=== PATIENT | male | born 1940 | race Caucasian/White ===

== ENCOUNTER 2017-03-10 02:20 | Inpatient (IN) | payer BC ==
[~2017-03-10] VITALS: Ht 175.3 cm; Wt 83.1 kg
[2017-03-10] MEDS ORDERED: IV NS 0.9% 500 ML BAG IV ONE (02:30)
[2017-03-10] MEDS ORDERED: ONDANSETRON HCL/PF 4 MG/2 ML VIAL IVP ONE (02:30)
--- NOTE | 2017-03-10 02:46 | NUR ---
BB RA; NAUSEA, VOMIT, DIARRHEA. PER EMS, THE ROOM WAS SPINNING, PT FELL HIT RIGHT FOREHEAD. PT AOX4 RR EVEN AND UNLABORED. NO SOB NOTED. NAD NOTED. NO NVD AT THIS TIME. PT GOWNED AND PLACED ON MOINTOR WAITING FOR MD CROWDER.
[2017-03-10] MEDS ORDERED: IV NS 0.9% 500 ML IV ONE (02:47)
[2017-03-10] MEDS ORDERED: IV SET PRIMARY PUMP SET 1 EA INFUS.SET MC ONE ×2 (02:47→06:18)
[2017-03-10] MEDS ORDERED: ONDANSETRON HCL/PF 4 MG/2 ML VIAL ONE (02:47)
--- NOTE | 2017-03-10 02:50 | NUR ---
XRAY AT BEDSIDE
[2017-03-10 03:05] LABS: BASOPHILS # (AUTO) 0.1 /CMM (0.0-0.2); BASOPHILS % (AUTO) 0.5 % (0.0-2.0); EOSINOPHILS # (AUTO) 0.3 /CMM (0.0-0.7); EOSINOPHILS % (AUTO) 2.5 % (0.0-6.0); HEMATOCRIT 47 % (39-51); LYMPHOCYTES # (AUTO) 2.4 /CMM (0.8-4.8); LYMPHOCYTES % (AUTO) 21.5 % (20.0-44.0); MEAN CORPUSCULAR HEMOGLOBIN 29 PG (26.0-33.0); MEAN CORPUSCULAR HGB CONC 34 g/dl (31.0-36.0); MEAN CORPUSCULAR VOLUME 87 fL (80-96); MONOCYTES # (AUTO) 0.7 /CMM (0.1-1.30); MONOCYTES % (AUTO) 6.2 % (2.0-12.0); NEUTROPHILS # (AUTO) 7.7 /CMM (1.8-8.9); NEUTROPHILS % (AUTO) 69.3 % (43.0-81.0); PLATELET COUNT (AUTO) 167 /CMM (150-450); RDW COEFFICIENT OF VARIATION 14.2 (11.5-15.0); RED BLOOD CELL COUNT(AUTO) 5.45 MIL/uL (4.5-6.0); WHITE BLOOD COUNT (AUTO) 11.1 K/uL (4.3-11.0)
[2017-03-10 03:16] LABS: CALCIUM, SERUM 8.9 mg/dL (8.5-10.1); CARBON DIOXIDE 27 mmol/L (21-32); CHLORIDE 106 mmol/L (98-107); CREATININE 1.3 mg/dL (0.6-1.3); GLUCOSE 133 mg/dL (74-106); POTASSIUM 3.8 mmol/L (3.5-5.1); SODIUM SERUM 142 mmol/L (136-145); UREA NITROGEN, BLOOD 15 mg/dL (7-18)
[2017-03-10 03:21] LABS: INR 0.96 (0.87-1.13); PROTHROMBIN TIME 10.2 SECS (9.5-12.7)
[2017-03-10 03:22] LABS: ALANINE AMINOTRANSFERASE 23 U/L (12-78); ALBUMIN 3.8 g/dL (3.4-5.0); ALKALINE PHOSPHATASE 73 U/L (46-116); ASPARTATE AMINOTRANSFERASE 16 U/L (15-37); BILIRUBIN,DIRECT 0.1 mg/dL (0.0-0.2); BILIRUBIN,TOTAL 0.7 mg/dL (0.2-1.0); TOTAL PROTEIN, SERUM 6.9 g/dL (6.4-8.2)
[2017-03-10 03:24] LABS: TROPONIN I < 0.017 ng/mL (0.00-0.056)
[2017-03-10] MEDS ORDERED: BENA40TA2 PO (03:58)
[2017-03-10] MEDS ORDERED: HYDR-4077 PO (03:58)
[2017-03-10] MEDS ORDERED: ROSU10TA PO (03:58)
[2017-03-10] MEDS ORDERED: ASPI-1094 PO (03:58)
[2017-03-10] MEDS ORDERED: METO50TA3 PO (03:58)
--- NOTE | 2017-03-10 04:25 | NUR ---
DR. CHRIS SPEAKING TO DR. KULKARNI REGARDING ADMISSION
--- NOTE | 2017-03-10 04:32 | NUR ---
REPORT GIVEN TO AUGUST ROCA FOR C.O.C
[2017-03-10] MEDS ORDERED: IV NS 0.9% 1,000 ML IV PRN (04:39)
--- NOTE | 2017-03-10 04:40 | NUR ---
TELE/RN NOTES RECEIVED PT. FROM ER VIA EMORY. PT. IS AWAKE, ALERT AND ORIENTED X4. BREATHING EVEN AND UNLABORED. NO SOB, RESPIRATORY DISTRESS OR COMPLAINTS OF PAIN NOTED AT THIS TIME. NO COMPLAINTS OF LIGHTHEADED OR DIZZINESS NOTED AT THIS TIME. ORIENTED PT. TO ROOM. PLACED EXTERNAL CORK INSULATION INSTALLER ON PT. CURRENT RHYTHM = SINUS RHYTHM HR 63. PT. WITH LEFT AC 18 GAUGE IV SALINE LOCK PRESENT, PATENT AND INTACT. BED IN LOWEST POSITION, CALL LIGHT WITHIN REACH, WILL CONTINUE TO MONITOR.
[2017-03-10 04:56] VITALS: BP 210/81
--- NOTE | 2017-03-10 04:57 | NUR ---
PT TRASNFERED PER ACLS PROTOCOL.
[2017-03-10 05:00] VITALS: BP 158/89
[2017-03-10] MEDS ORDERED: ONDANSETRON HCL/PF 4 MG/2 ML VIAL IVP PRN (05:00)
[2017-03-10] MEDS ORDERED: MAG HYDROX/AL HYDROX/SIMETH 30 ML UDC PO PRN (05:00)
[2017-03-10] MEDS ORDERED: HYDROCODONE/APAP 5/325MG 1 EACH TABLET PO PRN (05:00)
[2017-03-10] MEDS ORDERED: Z GUARD REMEDY 2 OZ OINT TP PRN (05:00)
[2017-03-10] MEDS ORDERED: ACETAMINOPHEN 325 MG TABLET PO PRN (05:00)
[2017-03-10] MEDS ORDERED: MAGNESIUM HYDROXIDE 30 ML UDC PO PRN (05:00)
--- NOTE | 2017-03-10 06:00 | NUR ---
TELE/RN NOTES PT. TOOK HIS HOME BLOOD PRESSURE MEDICATIONS METOPROLOL, HYDRALAZINE AND BENAZAPRIL. HE STATED HE TAKES THEM EVERYDAY AT 0600 AND HE DOESN'T WANT TO MISS A DOSE OR TAKE IT LATE. ALL OF PT. MEDICATIONS DOCUMENTED AND PLACED IN A BAG FOR PHARMACY AND SIGNED BY PT. WILL CONTINUE TO MONITOR.
[2017-03-10] MEDS ORDERED: IV NS 0.9% 1,000 ML ONE (06:17)
--- NOTE | 2017-03-10 06:48 | NUR ---
TELE/RN NOTES PT. LYING IN BED RESTING. BREATHING EVEN AND UNLABORED ON ROOM AIR. NO SOB, RESPIRATORY DISTRESS OR COMPLAINTS OF PAIN NOTED AT THIS TIME. PT. WITH EXTERNAL EXTENSION WORK INSTRUCTOR PRESENT AND INTACT. CURRENT RHYTHM = SINUS RHYTHM HR 65. PT. WITH LEFT AC 18 GAUGE PERIPHERAL IV PRESENT, PATENT AND INTACT ADMINISTERING TO PT. NS @ 75 ML/HR. ALL PT. NEEDS MET. BED IN LOWEST POSITION, CALL LIGHT WITHIN REACH, WILL ENDORSE TO DAYSHIFT NURSE FOR CONTINUITY OF CARE.
[2017-03-10 07:02] VITALS: BP 158/89
--- NOTE | 2017-03-10 07:20 | NUR ---
RECEIVED PT. ALERT AND ORIENTED X4.NO COMPLAINTS.
[2017-03-10] MEDS ORDERED: PANTOPRAZOLE 40 MG TABLET.DR PO SCH (07:30)
[2017-03-10 08:00] VITALS: BP 158/89
[2017-03-10] MEDS ORDERED: ASPIRIN 81 MG TAB.CHEW PO SCH (09:00)
[2017-03-10] MEDS ORDERED: METOPROLOL TARTRATE 50 MG TABLET PO SCH (09:00)
[2017-03-10] MEDS ORDERED: ATORVASTATIN 10 MG TABLET PO SCH (09:00)
[2017-03-10 09:16] LABS: THYROID STIMULATING HORMONE 3.73 uIU/mL (0.358-3.74)
[2017-03-10] MEDS: hydrALAZINE HCL 50 MG TABLET PO SCH ×2 (10:11→13:23)
--- NOTE | 2017-03-10 10:30 | NUR ---
Alcon MOLINA DC BY PT.-STATES HE IS GOING HOME.
[2017-03-10 12:00] VITALS: BP 185/96
--- NOTE | 2017-03-10 14:20 | NUR ---
DR. CRUZ,DR. PINA IN TO SEE PT. ORDERS GIVEN.ECHO DONE,DR. PINA INFORMED THAT PT. WANTS TO BE DC,D,BUT SAYS NO-INFORMED HIM PT WILL SIGN OUT AMA.AMA PAPER SIGNED,GIVEN DC INSTRUCTION-ALSO INFORMED PT. HE IS TO HAVE DOPPLER STUDY OF LEGS AND PT. REFUSING.HEP LOCK REMOVED.DISCHARGE PHOTOS NOT DONE PT. HERE LESS THAN 24 HRS.TAKEN TO LOBBY VIA W/C ACCOMPANIED BY GROUP SOCIAL WORKER FOR TAXI PICK-UP.SLEEPING CAR SERVICE ATTENDANT WELL TUBE FITTER INFORMED PT. OF RISKS OF LEAVING WITHOUT MD WALDROP.PT. OK WITH THIS.
[2017-03-10 16:00] VITALS: BP 154/84
[2017-03-10] MEDS ORDERED: ZOLPIDEM TARTRATE 5 MG TABLET PO PRN (22:00)
[2017-03-11] MEDS ORDERED: BENAZEPRIL HCL 20 MG TABLET PO SCH (09:00)
== END 2017-03-10 16:30 | disposition left against medical advice (07) | DRG 74 ==
LOC: ER 02:22 → TELE 04:35
PROVIDERS: ADMIT Internal Medicine; ATTEND Internal Medicine
DX: G90.8 Other disorders of autonomic nervous system (principal); I10 Essential (primary) hypertension; E78.5 Hyperlipidemia, unspecified; Z86.73 Personal history of transient ischemic attack (TIA), and cerebral infarction without residual deficits; R19.7 Diarrhea, unspecified
CPT/HCPCS: 36415; 70450-TC; 71010-TC; 80048-TC; 80076-TC; 84439-TC; 84443-TC; 84484-TC; 85025-TC; 85730-TC; 87081-TC; 93307-TC; A4606; J2405; J7030; J7040; Z7610

== ENCOUNTER 2017-03-20 03:00 | Emergency (ER) | payer BC ==
[~2017-03-20] VITALS: Ht 172.7 cm; Wt 83.5 kg
[~2017-03-20 03:00] MED LIST: ASPI-1094 PO; BENA40TA2 PO; HYDR-4077 PO; METO50TA3 PO; ROSU10TA PO
--- NOTE | 2017-03-20 03:00 | NUR ---
PT BIB RA WITH A C/O HIGH BP. PT WENT TO ER BED #7 AND WAS PLACED ON THE MONITOR & CONTINUOUS PULSE OX. PT IS AA&O X4. RESP EVEN AND UNLABORED. NO C/O N/V AND NO DIAPHORESIS NOTED. NO C/O HEADACHE OR BLURRED VISION.
[2017-03-20] MEDS ORDERED: ONDANSETRON HCL/PF 4 MG/2 ML VIAL ONE (03:22)
[2017-03-20] MEDS ORDERED: hydrALAZINE HCL IV 20 MG VIAL ONE (03:22)
[2017-03-20 03:27] LABS: BASOPHILS % (AUTO) 0.5 % (0.0-2.0); EOSINOPHILS # (AUTO) 0.3 /CMM (0.0-0.7); EOSINOPHILS % (AUTO) 3.6 % (0.0-6.0); HEMATOCRIT 44 % (39-51); HEMOGLOBIN 14.9 g/dL (13.5-17.5); LYMPHOCYTES # (AUTO) 3.5 /CMM (0.8-4.8); LYMPHOCYTES % (AUTO) 47.1 % (20.0-44.0); MEAN CORPUSCULAR HEMOGLOBIN 29 PG (26.0-33.0); MEAN CORPUSCULAR HGB CONC 34 g/dl (31.0-36.0); MEAN CORPUSCULAR VOLUME 87 fL (80-96); MONOCYTES # (AUTO) 0.6 /CMM (0.1-1.30); MONOCYTES % (AUTO) 8.5 % (2.0-12.0); NEUTROPHILS % (AUTO) 40.3 % (43.0-81.0); PLATELET COUNT (AUTO) 191 /CMM (150-450); RED BLOOD CELL COUNT(AUTO) 5.09 MIL/uL (4.5-6.0); WHITE BLOOD COUNT (AUTO) 7.4 K/uL (4.3-11.0)
[2017-03-20] MEDS ORDERED: ONDANSETRON HCL/PF 4 MG/2 ML VIAL IV ONE (03:30)
[2017-03-20] MEDS ORDERED: hydrALAZINE HCL IV 20 MG VIAL IV ONE (03:30)
--- NOTE | 2017-03-20 03:38 | NUR ---
PT LEFT FOR CT VIA GURNEY.
[2017-03-20 03:45] LABS: ALANINE AMINOTRANSFERASE 19 U/L (12-78); ALBUMIN 3.6 g/dL (3.4-5.0); ALKALINE PHOSPHATASE 72 U/L (46-116); ASPARTATE AMINOTRANSFERASE 14 U/L (15-37); BILIRUBIN,DIRECT 0.1 mg/dL (0.0-0.2); BILIRUBIN,TOTAL 0.9 mg/dL (0.2-1.0); CALCIUM, SERUM 8.5 mg/dL (8.5-10.1); CARBON DIOXIDE 26 mmol/L (21-32); CHLORIDE 106 mmol/L (98-107); CREATININE 1.2 mg/dL (0.6-1.3); GLUCOSE 117 mg/dL (74-106); POTASSIUM 3.6 mmol/L (3.5-5.1); SODIUM SERUM 142 mmol/L (136-145); TOTAL PROTEIN, SERUM 6.6 g/dL (6.4-8.2); UREA NITROGEN, BLOOD 11 mg/dL (7-18)
[2017-03-20 03:48] LABS: TROPONIN I < 0.017 ng/mL (0.00-0.056)
--- NOTE | 2017-03-20 03:51 | NUR ---
PT RETURNED FROM CT.
--- NOTE | 2017-03-20 04:01 | NUR ---
PT AMBULATED TO THE BATHROOM WITH A STEADY GAIT. NO DIZZINESS NOTED.
--- NOTE | 2017-03-20 04:06 | NUR ---
PT AMBULATED BACK FROM THE BATHROOM. URINE SAMPLE OBTAINED. LAB CALLED FOR P/U.
--- NOTE | 2017-03-20 04:32 | NUR ---
PT APPEARS TO BE RESTING COMFORTABLY WITH NO S/S OF PAIN OR DISTRESS.
[2017-03-20 04:44] LABS: APPEARANCE,URINE CLEAR (CLEAR); BILIRUBIN,URINE NEGATIVE (NEGATIVE); BLOOD, URINE NEGATIVE Ery/uL (NEGATIVE); COLOR,URINE YELLOW (YELLOW); KETONES,URINE NEGATIVE (NEGATIVE); LEUKOCYTE ESTERASE ,URINE NEGATIVE (NEGATIVE); NITRITE, URINE NEGATIVE (NEGATIVE); PH,URINE 5.5 (5.0-8.0); PROTEIN,URINE NEGATIVE (NEGATIVE); UGLUCOSE NEGATIVE (NEGATIVE); UROBILINOGEN,URINE 0.2 EU/dL (0.2)
[2017-03-20] MEDS ORDERED: MECLIZINE HCL 25 MG TABLET ONE (04:45)
--- NOTE | 2017-03-20 04:59 | NUR ---
IV removed. Catheter intact and site benign. Pressure and 4x4 applied to site. No bleeding noted.Patient discharged to home in stable condition. Written and verbal after care instructions given. Patient verbalizes understanding of instruction. PT REC'D A COPY OF ALL LABS AND IMAGING FINDINGS. PT IS ALSO REC'ING A TAXI VOUCHER HOME. PT ARRIVED BY RA AND DOES NOT HAVE A WAY HOME. VSS.
[2017-03-20 05:00] VITALS: BP 140/73
[2017-03-20] MEDS ORDERED: MECLIZINE HCL 25 MG TABLET PO ONE (05:00)
[2017-03-23] MEDS ORDERED: BENA20TA2 PO (12:20)
[2017-03-23] MEDS ORDERED: DOXA1TAB17 PO (12:20)
== END 2017-03-20 05:01 | disposition home or self-care (01) ==
LOC: ER 03:01
DX: I10 Essential (primary) hypertension (principal); Z79.82 Long term (current) use of aspirin; Z86.73 Personal history of transient ischemic attack (TIA), and cerebral infarction without residual deficits; Z88.0 Allergy status to penicillin
CPT/HCPCS: 36415; 70450-TC; 71010-TC; 80048-TC; 80076-TC; 81000-TC; 84484-TC; 85025-TC; A4606; J0360; J2405; J8597; Z7610

== ENCOUNTER 2017-03-22 04:58 | Inpatient (IN) | payer BC ==
[~2017-03-22] VITALS: Ht 172.7 cm; Wt 81.7 kg
--- NOTE | 2017-03-22 05:04 | NUR ---
PT BIBRA39 FOR C/O FEELING LIGHTHEADED W/ DIZZINESS S/P ELEVATED SBP ABOVE 210, REPORT ONE OF HIS BP MEDICATIONS WAS RECENTLY D/C BY HIS PCP. AOX4, AFEBRILE W/ RESP EVEN & UNLABORED, DENIES ANY BLURRED VISION, NO SOB, NO CP, AFIB W/ NAD NOTED. PT IN GOWN, ON CONTINUOUS PULSE-OX W/ CARDIAC MONITORING. DR. CHRIS AT BEDSIDE FOR FURTHER EVAL. EKG STAT AT BEDSIDE.
--- NOTE | 2017-03-22 05:10 | NUR ---
GAYLA started, labs drawn & sent.
[2017-03-22] MEDS ORDERED: hydrALAZINE HCL IV 20 MG VIAL ONE (05:11)
--- NOTE | 2017-03-22 05:21 | NUR ---
pt medicated as ordered for elevated bp.
[2017-03-22] MEDS ORDERED: hydrALAZINE HCL IV 20 MG VIAL IV ONE (05:30)
[2017-03-22 05:35] LABS: BASOPHILS % (AUTO) 0.3 % (0.0-2.0); EOSINOPHILS # (AUTO) 0.4 /CMM (0.0-0.7); EOSINOPHILS % (AUTO) 4.6 % (0.0-6.0); HEMATOCRIT 44 % (39-51); LYMPHOCYTES # (AUTO) 4.5 /CMM (0.8-4.8); LYMPHOCYTES % (AUTO) 54.9 % (20.0-44.0); MEAN CORPUSCULAR HEMOGLOBIN 29 PG (26.0-33.0); MEAN CORPUSCULAR HGB CONC 34 g/dl (31.0-36.0); MEAN CORPUSCULAR VOLUME 87 fL (80-96); MONOCYTES # (AUTO) 0.7 /CMM (0.1-1.30); MONOCYTES % (AUTO) 8.6 % (2.0-12.0); NEUTROPHILS # (AUTO) 2.6 /CMM (1.8-8.9); NEUTROPHILS % (AUTO) 31.6 % (43.0-81.0); PLATELET COUNT (AUTO) 194 /CMM (150-450); RDW COEFFICIENT OF VARIATION 13.8 (11.5-15.0); WHITE BLOOD COUNT (AUTO) 8.2 K/uL (4.3-11.0)
[2017-03-22 05:45] LABS: CALCIUM, SERUM 8.5 mg/dL (8.5-10.1); CARBON DIOXIDE 27 mmol/L (21-32); CHLORIDE 107 mmol/L (98-107); CREATININE 1.1 mg/dL (0.6-1.3); GLUCOSE 116 mg/dL (74-106); POTASSIUM 3.7 mmol/L (3.5-5.1); SODIUM SERUM 142 mmol/L (136-145); UREA NITROGEN, BLOOD 16 mg/dL (7-18)
--- NOTE | 2017-03-22 05:47 | NUR ---
Dr. Jose at bedside for update on pt status.
[2017-03-22 05:48] LABS: ALANINE AMINOTRANSFERASE 21 U/L (12-78); ALBUMIN 3.7 g/dL (3.4-5.0); ALKALINE PHOSPHATASE 68 U/L (46-116); ASPARTATE AMINOTRANSFERASE 18 U/L (15-37); BILIRUBIN,TOTAL 0.9 mg/dL (0.2-1.0); TOTAL PROTEIN, SERUM 6.7 g/dL (6.4-8.2); TROPONIN I < 0.017 ng/mL (0.00-0.056)
--- NOTE | 2017-03-22 06:07 | NUR ---
pt resting comfortably in bed w/ nad noted. On continuous monitoring.
--- NOTE | 2017-03-22 06:10 | NUR ---
pt ambulatory w/ steady gait to restroom, nad noted.
--- NOTE | 2017-03-22 06:15 | NUR ---
pt BP elevated s/p ambulating to restroom. Pt took his own medication metoprolol 50mg for elevated bp. Dr. Romero aware, at bedside evaluating pt.
--- NOTE | 2017-03-22 07:10 | NUR ---
Report given to AUGUST Heredia for NADIYA.
--- NOTE | 2017-03-22 07:50 | NUR ---
report given to mario alberto zapata for continuity of care.
[2017-03-22 08:00] VITALS: BP 182/72
--- NOTE | 2017-03-22 08:00 | NUR ---
RN ADMITTING NOTES ADMITTED PATIENT FROM ER, REPORT RECEIVED FROM RNBLAS. ARRIVED IN WHEELCHAIR ACCOMPANIED BY SILK SCREEN OPERATORMARY JO, ADMITTED TO ROOM 106. AWAKE AND ALERT X3, ABLE TO FOLLOW SIMPLE COMMANDS AND ANSWER QUESTIONS, AMBULATORY. ON TELE SINUS RHYTHM, DENIES ANY CHEST PAIN OR DISCOMFORT. NO RESPIRATORY DISTRESS NOTED, BREATHING EVEN AND UNLABORED. O2 SAT 98% ON RA. SKIN INTACT. LEFT AC IV SITE PATENT AND CDI, GAUGE #18, FLUSHED WITH NS. SIDE RAILS UP, BED LOCKED AND IN LOWEST POSITION, CALL LIGHT WITHIN EASY REACH.
[2017-03-22] MEDS ORDERED: METO-302 PO (08:26)
--- NOTE | 2017-03-22 08:30 | NUR ---
RN NOTES: DR. MANCIA MADE AWARE OF PT'S ADMISSION AND BP 182/72.
[2017-03-22] MEDS ORDERED: ACETAMINOPHEN 325 MG TABLET PO PRN (11:00)
[2017-03-22] MEDS ORDERED: HYDROCODONE/APAP 5/325MG 1 EACH TABLET PO PRN (11:00)
[2017-03-22] MEDS ORDERED: Z GUARD REMEDY 2 OZ OINT TP PRN (11:00)
[2017-03-22] MEDS ORDERED: ONDANSETRON HCL/PF 4 MG/2 ML VIAL IVP PRN (11:00)
[2017-03-22] MEDS ORDERED: ZOLPIDEM TARTRATE 5 MG TABLET PO PRN (11:00)
[2017-03-22 12:00] VITALS: BP 173/81
--- NOTE | 2017-03-22 12:00 | NUR ---
RN NOTES: PT SEEN & EXAMINED BY DR. CRUZ W/ ORDERS NOTED & CARRIED OUT.
[2017-03-22] MEDS: BENAZEPRIL HCL 20 MG TABLET PO SCH (12:24)
[2017-03-22] MEDS: hydrALAZINE HCL 50 MG TABLET PO SCH ×2 (12:24→17:34)
[2017-03-22] MEDS ORDERED: DOXAZOSIN MESYLATE (1 MG) 1 MG TABLET PO SCH (12:30)
[2017-03-22] MEDS ORDERED: LACTULOSE 10 G/15 ML UDC (PYXIS) PO PRN (13:30)
--- NOTE | 2017-03-22 14:00 | NUR ---
RN NOTES: PT SEEN & EXAMINED BY DR. MANCIA. MADE AWARE THAT PT IS REQUESTING FOR LAXATIVES W/ ORDERS TO GIVE LACTULOSE 20 GM BID PRN.
[2017-03-22] MEDS ORDERED: BISACODYL SUPP (10 MG) 10 MG/SUPP.RECT SUPP.RECT RC PRN (14:30)
[2017-03-22] MEDS ORDERED: MAGNESIUM CITRATE 296 ML BOTTLE PO ONE (14:30)
[2017-03-22] MEDS: METOPROLOL SUCCINATE 25 MG TAB.SR.24H PO SCH (17:35)
--- NOTE | 2017-03-22 18:57 | NUR ---
PATIENT AWAKE AND SITTING IN CHAIR. NO RESPIRATORY DISTRESS NOTED, DENIES ANY PAIN OR DISCOMFORT @ THIS TIME. BP IMPROVED. LEFT AC REMAINS CDI. WILL ENDORSE CONTINUITY OF CARE TO PM NURSE.
[2017-03-22 20:00] VITALS: BP_SYST 132; BP_SYST 137; BP_SYST 173; BP_DIAS 57; BP_DIAS 68; BP_DIAS 81
--- NOTE | 2017-03-22 20:50 | NUR ---
STUDENT TEACHER. INITIAL ASSESSMENT. RECEIVED THE PT REST ON THE BED. PT AWAKE, ALERT, FOLLOW COMMANDS. MASTER DYER SHOWING NSR. PT ON ROOM AIR. SAT 95%. MASTER DYER SHOWING NSR. IV RT FA 18G. SALINE LOCK. AFEBRILE. PT IS INDEPENDENT. AFEBRILE. WILL CONTINUE TO MONITOR VITALS.
[2017-03-22] MEDS ORDERED: ATORVASTATIN 10 MG TABLET PO SCH (22:00)
--- NOTE | 2017-03-22 22:42 | NUR ---
RN NOTE. PT STATE LIPITOR ALLERGY. PAGED MOUNTER SAXOPHONES MD KAREN GUTHRIE AWARE. PT TAKING AT HOME TAB CRESTOR 10MGAT BED TIME. UNABLE TO PUT TAB CRESTOR IN EMR.
[2017-03-23] VITALS: BP 156/71
[2017-03-23 04:00] VITALS: BP_SYST 155; BP_SYST 157; BP_DIAS 75
--- NOTE | 2017-03-23 04:25 | NUR ---
RN NOTES, AM CARE, ORAL CARE BED BATH GIVEN, ZLINEN CHANGED, REMAINING SAME PT ON ROOM AIR, SAT 98%. CARDIAC MINITOR SHOWIIV LT HAND, SALINE LOCH. WILL CONTINUE TO MONITOR VITALS.
[2017-03-23 06:12] LABS: ALANINE AMINOTRANSFERASE 19 U/L (12-78); ALBUMIN 3.6 g/dL (3.4-5.0); ALKALINE PHOSPHATASE 60 U/L (46-116); ASPARTATE AMINOTRANSFERASE 14 U/L (15-37); CALCIUM, SERUM 8.4 mg/dL (8.5-10.1); CARBON DIOXIDE 27 mmol/L (21-32); CHLORIDE 105 mmol/L (98-107); GLUCOSE 119 mg/dL (74-106); MAGNESIUM 2.6 mg/dL (1.8-2.4); PHOSPHORUS 2.4 mg/dL (2.5-4.9); POTASSIUM 3.8 mmol/L (3.5-5.1); SODIUM SERUM 139 mmol/L (136-145); TOTAL PROTEIN, SERUM 6.8 g/dL (6.4-8.2); UREA NITROGEN, BLOOD 10 mg/dL (7-18)
[2017-03-23 06:21] LABS: CHOLESTEROL 112 mg/dL (<200); HDL CHOLESTEROL 32 mg/dL (40-60); LDL 52 mg/dL (0-99); THYROID STIMULATING HORMONE 1.329 uIU/mL (0.358-3.74); TRIGLYCERIDES 142 mg/dL (30-150)
[2017-03-23 06:25] LABS: BASOPHILS % (AUTO) 0.4 % (0.0-2.0); EOSINOPHILS # (AUTO) 0.2 /CMM (0.0-0.7); EOSINOPHILS % (AUTO) 3.6 % (0.0-6.0); HEMATOCRIT 44 % (39-51); HEMOGLOBIN 14.9 g/dL (13.5-17.5); LYMPHOCYTES # (AUTO) 1.9 /CMM (0.8-4.8); LYMPHOCYTES % (AUTO) 27.4 % (20.0-44.0); MEAN CORPUSCULAR HEMOGLOBIN 30 PG (26.0-33.0); MEAN CORPUSCULAR HGB CONC 34 g/dl (31.0-36.0); MEAN CORPUSCULAR VOLUME 88 fL (80-96); MONOCYTES # (AUTO) 0.6 /CMM (0.1-1.30); MONOCYTES % (AUTO) 8.2 % (2.0-12.0); NEUTROPHILS # (AUTO) 4.1 /CMM (1.8-8.9); NEUTROPHILS % (AUTO) 60.4 % (43.0-81.0); PLATELET COUNT (AUTO) 231 /CMM (150-450); RDW COEFFICIENT OF VARIATION 14.1 (11.5-15.0); RED BLOOD CELL COUNT(AUTO) 4.99 MIL/uL (4.5-6.0); WHITE BLOOD COUNT (AUTO) 6.8 K/uL (4.3-11.0)
--- NOTE | 2017-03-23 07:10 | NUR ---
RN INITIAL NOTES: REC'D PT AWAKE ON BED, A/O X4, NOT IN ANY DISTRESS, DENIES ANY PAIN/ DISCOMFORT. ON TELEMONITOR, SR. L AC G18 SL, FLUSHED, PATENT & INTACT W/ NO SIGNS OF INFECTION/ INFILTRATION NOTED. PT IS AMBULATORY AND INDEPENDENT W/ ADLS. PROVIDED COMFORT & SAFETY MEASURES. CALL LIGHT W/IN REACH. WILL CONTINUE TO MONITOR.
--- NOTE | 2017-03-23 07:37 | NUR ---
RN NOTE PT TOOK HER OWN MEDICINE APRESOLINE AND METOPROLOL AT 0700. PT STATE HE IS TAKING AT HOME 0600.ENDORSE TO DAY SHIFT.I SPOKE WITH PHARMACY WILDER. .DAY SHIFT RN WILL TALK TO .
[2017-03-23 08:00] VITALS: BP_SYST 151; BP_DIAS 56; BP_DIAS 76
--- NOTE | 2017-03-23 08:00 | NUR ---
RN NOTES: PER PT, HE ALREADY TOOK HIS BP MEDICATION - HYDRALAZINE & METOPROLOL. EXPLAINED TO HIM THAT MEDICATION SHOULD BE GIVEN BY NURSES TO PREVENT DOUBLE DOSING. HE VERBALIZED UNDERSTANDING.
[2017-03-23] MEDS ORDERED: METOPROLOL SUCCINATE 25 MG TAB.SR.24H PO SCH (09:00)
[2017-03-23] MEDS: hydrALAZINE HCL 50 MG TABLET PO SCH ×3 (09:00→12:47)
[2017-03-23] MEDS: METOPROLOL SUCCINATE 25 MG TAB.SR.24H PO SCH (09:00)
[2017-03-23] MEDS ORDERED: ASPIRIN 81 MG TAB.CHEW PO SCH (09:00)
--- NOTE | 2017-03-23 09:00 | NUR ---
RN NOTES: PT SEEN & EXAMINED BY DR. CRUZ W/ ORDERS & CARRIED OUT.
[2017-03-23] MEDS: BENAZEPRIL HCL 20 MG TABLET PO SCH (09:12)
--- NOTE | 2017-03-23 11:00 | NUR ---
RN NOTES: PT SEEN & EXAMINED BY DR. BLANCHE Bender/ ORDERS FOR DC.
[2017-03-23 12:00] VITALS: BP 145/78
[2017-03-23] MEDS ORDERED: DOXA1TAB17 PO (12:20)
[2017-03-23] MEDS ORDERED: BENA20TA2 PO (12:20)
[2017-03-23 12:47] VITALS: BP 166/79
[2017-03-23] MEDS ORDERED: K PHOS NEUTRAL 250 MG TABLET PO ONE (13:30)
--- NOTE | 2017-03-23 13:50 | NUR ---
BUSINESS ANALYST [employer] NOTES: PT DC'D TO HOME, SELF CARE IN STABLE CONDITION, A/O X 4, AMBULATORY, NOT IN ANY DISTRESS. IV LINE ACCESS REMOVED, PRESSURE DRESSING APPLIED, NO S/SX OF INFECTION. ID BAND REMOVED. TAXI VOUCHER PROVIDED. DC INSTRUCTIONS AND DOCUMENTS GIVEN TO THE PT W/ VERBALIZATION OF UNDERSTANDING. ALL BELONGINGS SENT W/ PT. NO CONCERNS AT THIS TIME. PT LEFT FACILITY AMBULATORY ACCOMPANIED BY FORENSIC BALLISTICS EXPERT.
== END 2017-03-23 14:46 | disposition home or self-care (01) | DRG 282 ==
LOC: ER 05:00 → MEDSG1 07:41 → TELE-TD 08:22 → TELE1 18:43
PROVIDERS: ADMIT Nurse Practitioner Acute Care; ATTEND Nurse Practitioner Acute Care
DX: I16.0 Hypertensive urgency (principal); I21.4 Non-ST elevation (NSTEMI) myocardial infarction; I10 Essential (primary) hypertension; E78.5 Hyperlipidemia, unspecified; Z86.73 Personal history of transient ischemic attack (TIA), and cerebral infarction without residual deficits; R73.03 Prediabetes
CPT/HCPCS: 36415; 80053-TC; 80061-TC; 83735-TC; 84100-TC; 84443-TC; 84484-TC; 85025-TC; 87081-TC; A4606; J0360; Z7610

== ENCOUNTER 2018-07-12 02:39 | Inpatient (IN) ==
[2018-07-12] VITALS (8 sets, daily range): BP systolic 92–235; BP diastolic 45–111
[~2018-07-12] VITALS: Ht 172.7 cm; Wt 79.4 kg
[~2018-07-12 02:39] MED LIST changes: -ASPI-1094 PO; -BENA40TA2 PO; +BENA40TA8 PO; -HYDR-4077 PO; -METO50TA3 PO; -ROSU10TA PO
--- NOTE | 2018-07-12 02:45 | NUR ---
BIB RA TO ER BED 8 C/O LT SIDE CHEST PAIN SINCE "10PM". AA/OX4. NON RADIATING PAIN. INCREASES ON MOVEMENT AND INSPIRATION. PRESSURE TYPE PAIN. 310PAIN. 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 SKIN PINK, WARM, DRY. MOVES ALL EXTREMITIES WELL. DENIES N/V. +DIZZINESS. +HTN SBP 203, SINUS TACH 105. ALL OTHER VSS. WILL CONTINUE TO MONITOR. MD AT BEDSIDE.
[2018-07-12] MEDS ORDERED: ASPIRIN 81 MG TAB.CHEW ONE (02:55)
[2018-07-12] MEDS ORDERED: MORPHINE SULFATE INJ 4 MG/ML DISP.SYRIN ONE (02:55)
[2018-07-12] MEDS ORDERED: METO50TA16 PO (02:56)
[2018-07-12] MEDS ORDERED: AMLO5TAB7 PO (02:56)
[2018-07-12] MEDS ORDERED: ROSU10TA PO (02:56)
[2018-07-12] MEDS ORDERED: MORPHINE SULFATE INJ 2 MG/ML DISP.SYRIN IV ONE (03:00)
[2018-07-12] MEDS ORDERED: ASPIRIN 81 MG TAB.CHEW PO ONE (03:00)
[2018-07-12 03:07] LABS: BASOPHILS % (AUTO) 0.6 % (0.0-2.0); EOSINOPHILS % (AUTO) 5.6 % (0.0-6.0); HEMATOCRIT 46 % (39-51); LYMPHOCYTES # (AUTO) 3.9 /CMM (0.8-4.8); LYMPHOCYTES % (AUTO) 56.5 % (20.0-44.0); MEAN CORPUSCULAR HGB CONC 33 g/dl (31.0-36.0); MEAN CORPUSCULAR VOLUME 91 fL (80-96); MONOCYTES # (AUTO) 0.6 /CMM (0.1-1.30); MONOCYTES % (AUTO) 9.3 % (2.0-12.0); NEUTROPHILS # (AUTO) 1.9 /CMM (1.8-8.9); PLATELET COUNT (AUTO) 200 /CMM (150-450); RED BLOOD CELL COUNT(AUTO) 5.03 MIL/uL (4.5-6.0); WHITE BLOOD COUNT (AUTO) 6.9 K/uL (4.3-11.0)
[2018-07-12 03:18] LABS: CALCIUM, SERUM 8.9 mg/dL (8.5-10.1); CARBON DIOXIDE 25 mmol/L (21-32); CHLORIDE 105 mmol/L (98-107); CREATININE 1.2 mg/dL (0.6-1.3); GLUCOSE 129 mg/dL (74-106); POTASSIUM 3.6 mmol/L (3.5-5.1); SODIUM SERUM 141 mmol/L (136-145); UREA NITROGEN, BLOOD 17 mg/dL (7-18)
[2018-07-12 03:26] LABS: TROPONIN I < 0.017 ng/mL (0.00-0.056)
[2018-07-12 03:31] LABS: B-TYPE NATRIURETIC PEPTIDE 85 PG/ML (0-125)
[2018-07-12 03:44] LABS: D-DIMER 0.38 mg/L(FEU (0.17-0.50); INR 0.94 (0.87-1.13)
--- NOTE | 2018-07-12 03:44 | NUR ---
Patient is resting comfortably in bed with eyes closed. Easily aroused. VSS. NAD
[2018-07-12] MEDS ORDERED: NITROGLYCERIN PACKET 1 GM PACKET ONE (04:02)
[2018-07-12] MEDS ORDERED: NITROGLYCERIN PACKET 1 GM PACKET TOP ONE (04:30)
--- NOTE | 2018-07-12 04:37 | NUR ---
REPORT GIVEN BURNING SUPERVISORAUGUST RUSSELL
--- NOTE | 2018-07-12 05:05 | NUR ---
SQL SERVER BI DEVELOPER NOTES RECEIVED PT FROM ER. PT C/O OF CHEST PAIN 01/31. PT A&O3. IV 3 18G IN L FA S/L. PT B/P WAS 235/111 ON ARRIVAL TO FLOOR, B/P MEDS AMD NITRO FOR CP WAS GIVEN. PT ORIENTED TO ROOM. ALL ADMISSION ORDERS WERE CARRIED OUT. ALL SAFETY PRECAUTION WAS TAKEN. CALL LIGHT IN REACH. BED IN LOW LOCKED POSITION. WILL ENDORSE TO AM RN.
--- NOTE | 2018-07-12 05:13 | NUR ---
PT TRANSPORTED TO [facility] UNIT STABLE CONDITION. NAD. MALONE.
[2018-07-12] MEDS ORDERED: MORPHINE SULFATE INJ 2 MG/ML DISP.SYRIN IV PRN (05:30)
[2018-07-12] MEDS ORDERED: HYDROCODONE/APAP 5/325MG 1 EACH TABLET PO PRN (05:30)
[2018-07-12] MEDS ORDERED: Z GUARD REMEDY 2 OZ OINT TP PRN (05:30)
[2018-07-12] MEDS ORDERED: ONDANSETRON HCL/PF 4 MG/2 ML VIAL IVP PRN (05:30)
[2018-07-12] MEDS ORDERED: MAG HYDROX/AL HYDROX/SIMETH 30 ML UDC PO PRN (05:30)
[2018-07-12] MEDS ORDERED: ACETAMINOPHEN 325 MG TABLET PO PRN (05:30)
[2018-07-12] MEDS ORDERED: MAGNESIUM HYDROXIDE 30 ML UDC PO PRN (05:30)
[2018-07-12] MEDS: hydrALAZINE HCL IV 20 MG VIAL IV PRN ×3 (05:50→23:19)
[2018-07-12] MEDS: NITROGLYCERIN 0.4 MG/TAB BOTTLE SL PRN ×2 (06:04→06:41)
--- NOTE | 2018-07-12 08:00 | NUR ---
RN NOTE PT IN BED, CO DISCOMFORT IN EPIGASTRIC AREA UPON DEEP BREATH AND COUGH 2/10, AOX2, FORGETFUL, CO NOT REMEMBERING HOW HE GOT INTO A HOSPITAL, ATTEMPTED TO REMEMBER HIS HOME ADDRESS, ASKED FOR HIS WALLET TO REVIEW ID CARD, DOES NOT REMEMBER WHY HE IS IN HOSPITAL. SPEECH CLEAR, NO S/S OF WEAKNESS ON ANY SIDE OF THE BODY. HAND RESEARCH AND EVALUATION ANALYST STRONG, ABLE TO MOVE IN BED. SAFETY MEASURES IN PLACE, CALL LIGHT WITHIN REACH WILL CONTINUE TO MONITOR.
[2018-07-12] MEDS ORDERED: MORPHINE SULFATE INJ 4 MG/ML DISP.SYRIN IV PRN (08:32)
[2018-07-12] MEDS: AMLODIPINE BESYLATE 5 MG TABLET PO SCH (08:58)
[2018-07-12] MEDS: BENAZEPRIL HCL 20 MG TABLET PO SCH (08:58)
[2018-07-12] MEDS: METOPROLOL TARTRATE 50 MG TABLET PO SCH ×2 (08:58→16:44)
[2018-07-12] MEDS: ENOXAPARIN SODIUM 40 MG/0.4 ML DISP.SYRIN SQ SCH (08:59)
[2018-07-12] MEDS ORDERED: Medication Not On Formulary EA (Rosuvastatin Calcium (Crestor) 1 TAB) PO SCH (09:00)
--- NOTE | 2018-07-12 15:22 | NUR ---
RN NOTE REPORT GIVEN TO AUGUST TEJADA FOR NADIYA. PT STABLE
--- NOTE | 2018-07-12 15:30 | NUR ---
RN NOTE RECEIVED PATIENT IN BED RESTING NO SOB OR ACUTE DISTRESS NOTED. PATIENT DENIES ANY PAIN . BED IN LOW LOCKED POSITION. CALL LIGHT WITHIN REACH. WILL CONTINUE TO MONITOR.
[2018-07-12] MEDS: CARBAMIDE PEROXIDE OTIC 15 ML BOTTLE LEFT EAR SCH ×2 (16:15→18:24)
--- NOTE | 2018-07-12 18:10 | NUR ---
RN NOTES PATIENT IN BED RESTING NO SOB OR ACUTE DISTRESS NOTED. NO ACUTE CHANGES NOTED. ALL DUE MEDICATIONS ADMINISTERED. ALL NEEDS MET WILL ENDORSE TO PM SHIFT.
[2018-07-12 18:47] LABS: BAND % (MANUAL) 1 % (0.0-5.0); BASOPHILS % (MANUAL) 0 % (0.0-2.0); EOSINOPHILS % (MANUAL) 4 % (0-4); LYMPHOCYTES % (MANUAL) 53 % (16-48); MONOCYTES % (MANUAL) 10 % (0-11.0); NEUTROPHILS % (MANUAL) 32 (42-76)
--- NOTE | 2018-07-12 19:16 | NUR ---
Patient lives locally alone. He is ambulatory and independent. Denies having DME or homehealth. He might need assistance with ride when discharge. Addendum: 07/12/18 at 1917 by MARÍA ELENA JIANG RN Amended: Links added.
--- NOTE | 2018-07-12 19:49 | NUR ---
RN INITIAL TEL NOTE RECEIVED PT IN BED, AOX4, ON NC @2LPM WELL SAGAR, C/O H/A 01/31 REQUESTING FOR TYLENOL, ON MONITORING FOR CERUMEN IMPACTION BOTH EARS, EAR DROPS STARTED, W/LH # 20G IV INTACT WILL CONT TO MONITOR. ALL NEEDS MET AT THIS TIME WELL SAFETY MEASURES, CL W/R.
--- NOTE | 2018-07-12 23:20 | NUR ---
IV APRESOLINE 0.5MG GIVEN PT BP 185/96 93, WILL RECHECK BP.
[2018-07-13] VITALS: BP 154/88
[2018-07-13 04:00] VITALS: BP 148/88
--- NOTE | 2018-07-13 04:30 | NUR ---
NOTED PT DIAPER DRY, PALPATED BALDER, NOTED WITH DISTENSION, OBTAINED BLADDER SCAN 500ML NOTED. CALLED PROFESSIONAL HEALTHCARE REPRESENTATIVE JAVI PINA, WITH TELEPHONE ORDER TO STRAIGHT CATH. TROPONIN CL VALUE REPORTED WITH TELEPHONE TO REPEAT TROPONIN IN 6HRS. ORDERS CARRIED OUT. Addendum: 07/13/18 at 0541 by MARCO A RODAS RN WRONG ENTRY NOTE FOR 115-1
--- NOTE | 2018-07-13 06:22 | NUR ---
RN CLOSING TEL NOTE ENDORSED PT IN BED, AOX4, ON NC @2LPM WELL SAGAR, C/O , ON MONITORING FOR CERUMEN IMPACTION LEFT EAR, EAR DROPS STARTED, W/LH # 20G IV INTACT WILL CONT TO MONITOR. ALL NEEDS MET AT THIS TIME WELL SAFETY MEASURES, CL W/R. WILL ENDORSE TO AM SHIFT NURSE TO F/U ON EKG RESULT.
[2018-07-13 07:10] LABS: ALANINE AMINOTRANSFERASE 19 U/L (12-78); ALBUMIN 3.7 g/dL (3.4-5.0); ALKALINE PHOSPHATASE 57 U/L (46-116); ASPARTATE AMINOTRANSFERASE 16 U/L (15-37); BILIRUBIN,TOTAL 0.8 mg/dL (0.2-1.0); CALCIUM, SERUM 8.9 mg/dL (8.5-10.1); CARBON DIOXIDE 24 mmol/L (21-32); CHLORIDE 106 mmol/L (98-107); CREATININE 0.9 mg/dL (0.6-1.3); GLUCOSE 113 mg/dL (74-106); PHOSPHORUS 2.6 mg/dL (2.5-4.9); POTASSIUM 3.5 mmol/L (3.5-5.1); SODIUM SERUM 140 mmol/L (136-145); TOTAL PROTEIN, SERUM 6.7 g/dL (6.4-8.2); UREA NITROGEN, BLOOD 15 mg/dL (7-18)
[2018-07-13 07:16] LABS: BASOPHILS % (AUTO) 0.6 % (0.0-2.0); EOSINOPHILS % (AUTO) 2.6 % (0.0-6.0); HEMATOCRIT 47 % (39-51); HEMOGLOBIN 15.8 g/dL (13.5-17.5); LYMPHOCYTES # (AUTO) 2.3 /CMM (0.8-4.8); LYMPHOCYTES % (AUTO) 31.5 % (20.0-44.0); MEAN CORPUSCULAR HGB CONC 34 g/dl (31.0-36.0); MEAN CORPUSCULAR VOLUME 91 fL (80-96); MONOCYTES # (AUTO) 0.7 /CMM (0.1-1.30); MONOCYTES % (AUTO) 9.1 % (2.0-12.0); NEUTROPHILS # (AUTO) 4.1 /CMM (1.8-8.9); NEUTROPHILS % (AUTO) 56.2 % (43.0-81.0); PLATELET COUNT (AUTO) 209 /CMM (150-450); RED BLOOD CELL COUNT(AUTO) 5.12 MIL/uL (4.5-6.0); WHITE BLOOD COUNT (AUTO) 7.2 K/uL (4.3-11.0)
[2018-07-13 07:22] LABS: CHOLESTEROL 134 mg/dL (<200); HDL CHOLESTEROL 35 mg/dL (40-60); LDL 72 mg/dL (0-99); THYROID STIMULATING HORMONE 0.846 uIU/mL (0.358-3.74); TRIGLYCERIDES 229 mg/dL (30-150)
[2018-07-13 08:00] VITALS: BP_SYST 144; BP_SYST 200; BP_DIAS 75; BP_DIAS 90
--- NOTE | 2018-07-13 08:35 | NUR ---
RN NOTES RECEIVED PATIENT, ALERT AND ORIENTEDx4, ABLE TO MAKE NEEDS KNOWN, ON ROOM AIR, NO SHORTNESS OF BREATH NOTED, SATURATION ON 98%, NO COMPLAINTS OF CHEST PAIN NOR PAIN OF ANY KIND, ON TELEMONITOR SINUS TACHY HR AT 104, AMBULATORY, WITH IVL ON THE L HAND G 20: IN PLACE, PATENT UPON FLUSHING, BLOOD PRESSURE ON HIGH END-WILL RECHECK AND ADMINISTER DUE MEDICATION. SAFETY MEASURES PUT IN PLACE, CALL LIGHT PLACE WITHIN REACH, WILL CONTINUE TO MONITOR AND ASSESS PATIENT.
[2018-07-13] MEDS: CARBAMIDE PEROXIDE OTIC 15 ML BOTTLE LEFT EAR SCH (09:27)
[2018-07-13] MEDS: ENOXAPARIN SODIUM 40 MG/0.4 ML DISP.SYRIN SQ SCH (09:29)
[2018-07-13] MEDS: AMLODIPINE BESYLATE 5 MG TABLET PO SCH (09:34)
[2018-07-13] MEDS: BENAZEPRIL HCL 20 MG TABLET PO SCH (09:34)
[2018-07-13] MEDS: METOPROLOL TARTRATE 50 MG TABLET PO SCH (09:35)
--- NOTE | 2018-07-13 10:00 | NUR ---
RN NOTES SEEN AND EXAMINED BY DR CRUZ. ORDER TO OBTAIN CHART FROM [facility] WHERE PATIENT HAD CARDIAC CATHETERIZATION.
[2018-07-13 12:00] VITALS: BP 135/76
--- NOTE | 2018-07-13 12:17 | NUR ---
RN NOTES SEEN AND EXAMINED BT BLANCHE CONTRERAS DNP. WITH ORDER TO DISCHARGE PATIENT. CARDIAC CLEARANCE OBTAINED FROM DR CRUZ. DISCHARGE ORDER FACILITATED.
[2018-07-13] MEDS ORDERED: ASPI-605 PO (12:24)
--- NOTE | 2018-07-13 13:20 | NUR ---
RN NOTES DISCHARGED PATIENT. EXIT CARE DONE. ALL QUESTIONS ANSWERED AND ADDRESSED APPROPRIATELY. PNEUMONIA AND FLU VACCINE OFFERED, PER PATIENT HE PREFER TO OBTAIN PNEUMONIA VACCINE AT THE PRIMARY DOCTOR'S CLINIC AND HE O GOT FLUE VACCINE A WEEK AGO. ALL MEDICATION AND DISCHARGE INSTRUCTIONS GIVEN TO PATIENT. ALL BELONGINGS ACCOUNTED FOR, RETURNED AND WORN BY THE PATIENT. PATIENT ACCOMPANIED TO FRONT LOBBYREYNALDO WAITING FOR HIM TO HOME.
== END 2018-07-13 13:20 | disposition home or self-care (01) | DRG 206 ==
LOC: ER 02:43 → TELE1 04:25
PROVIDERS: ADMIT Nurse Practitioner Acute Care; ATTEND Nurse Practitioner Acute Care
DX: M94.0 Chondrocostal junction syndrome [Tietze] (principal); I16.0 Hypertensive urgency; Z86.73 Personal history of transient ischemic attack (TIA), and cerebral infarction without residual deficits; I10 Essential (primary) hypertension; R73.03 Prediabetes; Z88.0 Allergy status to penicillin; Z88.8 Allergy status to other drugs, medicaments and biological substances; Z79.899 Other long term (current) drug therapy; H61.22 Impacted cerumen, left ear; E78.5 Hyperlipidemia, unspecified; I70.0 Atherosclerosis of aorta; K21.9 Gastro-esophageal reflux disease without esophagitis; H26.9 Unspecified cataract; I65.21 Occlusion and stenosis of right carotid artery
CPT/HCPCS: 36415; 71045-TC; 80048-TC; 80053-TC; 80061-TC; 83735-TC; 83880; 84100-TC; 84443-TC; 84484-TC; 85025-TC; 85378-TC; 85730-TC; A4606; G0378; J0360; J1650; J2270; J7050; Z7610

== ENCOUNTER 2018-09-17 05:05 | Inpatient (IN) | payer BC ==
[~2018-09-17] VITALS: Ht 175.3 cm; Wt 83.5 kg
[~2018-09-17 05:05] MED LIST changes: +AMLO5TAB7 PO; +ASPI-605 PO; +METO50TA16 PO; +ROSU10TA PO
--- NOTE | 2018-09-17 05:10 | NUR ---
PT BIBRA C/O DIZZINESS X2 DAYS AND DIFFICULTY WALKING IN A STRAIGHT LINE. ALSO REPORTS INTERMITTENT NUMBNESS IN L HAND. A/OX4, FOLLOWING COMMANDS. RESP EVEN UNLABORED. SKIN WARM DRY. NOTED VERY HYPERTENSIVE ON TRIAGE; ER PHYSICIAN NOTIFIED. IN ER BED 07 ON MONITOR.
[2018-09-17] MEDS ORDERED: hydrALAZINE HCL IV 20 MG VIAL ONE (05:24)
[2018-09-17] MEDS ORDERED: hydrALAZINE HCL IV 20 MG VIAL IV ONE (05:30)
[2018-09-17 05:43] LABS: BASOPHILS % (AUTO) 0.6 % (0.0-2.0); EOSINOPHILS % (AUTO) 5.4 % (0.0-6.0); HEMATOCRIT 47 % (39-51); HEMOGLOBIN 15.9 g/dL (13.5-17.5); LYMPHOCYTES # (AUTO) 2.2 /CMM (0.8-4.8); LYMPHOCYTES % (AUTO) 39.8 % (20.0-44.0); MEAN CORPUSCULAR HGB CONC 34 g/dl (31.0-36.0); MEAN CORPUSCULAR VOLUME 88 fL (80-96); MONOCYTES # (AUTO) 0.5 /CMM (0.1-1.30); MONOCYTES % (AUTO) 8.3 % (2.0-12.0); NEUTROPHILS # (AUTO) 2.6 /CMM (1.8-8.9); NEUTROPHILS % (AUTO) 45.9 % (43.0-81.0); PLATELET COUNT (AUTO) 194 /CMM (150-450); RED BLOOD CELL COUNT(AUTO) 5.35 MIL/uL (4.5-6.0); WHITE BLOOD COUNT (AUTO) 5.6 K/uL (4.3-11.0)
[2018-09-17 05:51] LABS: CARBON DIOXIDE 26 mmol/L (21-32); CHLORIDE 106 mmol/L (98-107); CREATININE 1.1 mg/dL (0.6-1.3); GLUCOSE 124 mg/dL (74-106); POTASSIUM 3.7 mmol/L (3.5-5.1); SODIUM SERUM 141 mmol/L (136-145); UREA NITROGEN, BLOOD 16 mg/dL (7-18)
[2018-09-17 05:57] LABS: ALANINE AMINOTRANSFERASE 23 U/L (12-78); ALBUMIN 3.7 g/dL (3.4-5.0); ALKALINE PHOSPHATASE 79 U/L (46-116); ASPARTATE AMINOTRANSFERASE 16 U/L (15-37); BILIRUBIN,DIRECT 0.2 mg/dL (0.0-0.2); BILIRUBIN,TOTAL 0.9 mg/dL (0.2-1.0); TOTAL PROTEIN, SERUM 6.8 g/dL (6.4-8.2)
--- NOTE | 2018-09-17 07:05 | NUR ---
RECEIVED REPORT FROM EDITH FOR [facility]. PATIENT IN BED AND ON MONITOR. STABLE AT THIS TIME.
[2018-09-17] MEDS ORDERED: TAMS0.4C34 PO (07:07)
--- NOTE | 2018-09-17 08:32 | NUR ---
AIDEE DAMAGE CUTTER AT BEDSIDE FOR EVAL AND AWARE FOR NO URINE COLLECTED YET, AND PER AIDEE HE WILL ORDER IT WHEN THE PATIENT IS ADMITTED ON THE FLOOR.
[2018-09-17] MEDS ORDERED: IV NS 0.9% 1,000 ML IV PRN (08:33)
[2018-09-17] MEDS ORDERED: CRESTOR 10 MG PO SCH ×2 (09:00→22:00)
[2018-09-17] MEDS ORDERED: ONDANSETRON HCL/PF 4 MG/2 ML VIAL IVP PRN (09:00)
[2018-09-17] MEDS ORDERED: ZOLPIDEM TARTRATE 5 MG TABLET PO PRN (09:00)
[2018-09-17] MEDS ORDERED: MAG HYDROX/AL HYDROX/SIMETH 30 ML UDC PO PRN (09:00)
[2018-09-17] MEDS ORDERED: HYDROCODONE/APAP 5/325MG 1 EACH TABLET PO PRN (09:00)
[2018-09-17] MEDS ORDERED: MAGNESIUM HYDROXIDE 30 ML UDC PO PRN (09:00)
--- NOTE | 2018-09-17 10:07 | NUR ---
[facility] BED 311-2
--- NOTE | 2018-09-17 10:41 | NUR ---
report given to Crystal for yariel, going to room 311-2 T.
--- NOTE | 2018-09-17 11:15 | NUR ---
wheeled patient via gurney accompanied by EMT and RN via acls protocol, going to room 311-2 T.
--- NOTE | 2018-09-17 11:45 | NUR ---
X RAY NURSEINTERNET NETWORK SPECIALIST NOTES Received patient from ER for dizziness @1115 via [place]. Per patient, he came from home. Alert and oriented x4, verbally responsive. Denies any pain at the moment. No SOB/labored breathing noted. Not in any type of distress. Body assessment done. Tele: Normal Sinus Rhythm 74. Denies chest pain, nausea or dizziness at the moment. IV on left ac @20g: patent and intact. Kept patient clean and dry. Unit orientation done. Safety measures in place. Bed in locked and lowest position with call light within reach. Will continue to monitor and assess patient. Addendum: 09/17/18 at 1420 by JEREMIAH GOMEZ RN 157/79 87 18 98.0 96%RA
[2018-09-17 12:00] VITALS: BP 157/79
[2018-09-17] MEDS: METOPROLOL TARTRATE 50 MG TABLET PO SCH ×2 (13:01→17:03)
[2018-09-17] MEDS: TAMSULOSIN 0.4 MG CAP.SR.24H PO SCH (13:02)
[2018-09-17] MEDS: AMLODIPINE BESYLATE 5 MG TABLET PO SCH (13:02)
[2018-09-17] MEDS: ASPIRIN EC 81 MG TABLET.DR PO SCH (13:02)
--- NOTE | 2018-09-17 13:45 | NUR ---
PRINCIPAL GIFTS OFFICER NON ADMIN NOTES Per patient, Crestor is taken during bedtime. Changed the time to 2100. Pharmacist made aware (Sam) of the time change and that patient does not have anyone to bring medication from home.
[2018-09-17] MEDS: ACETAMINOPHEN 325 MG TABLET PO PRN (15:35)
[2018-09-17 16:00] VITALS: BP 157/84
[2018-09-17 17:35] LABS: APPEARANCE,URINE CLEAR (CLEAR); BILIRUBIN,URINE NEGATIVE (NEGATIVE); BLOOD, URINE TRACE-INTA Ery/uL (NEGATIVE); COLOR,URINE YELLOW (YELLOW); KETONES,URINE NEGATIVE (NEGATIVE); LEUKOCYTE ESTERASE ,URINE NEGATIVE (NEGATIVE); NITRITE, URINE NEGATIVE (NEGATIVE); PH,URINE 6.5 (5.0-8.0); PROTEIN,URINE NEGATIVE (NEGATIVE); UGLUCOSE NEGATIVE (NEGATIVE); UROBILINOGEN,URINE 0.2 EU/dL (0.2)
[2018-09-17 17:51] LABS: BACTERIA,URINE None seen /HPF (None Seen); SQUAMOUS EPITHELIAL CELL,UR None Seen /HPF (None Seen); WBC,URINE 0-2 /HPF (0-3)
--- NOTE | 2018-09-17 18:15 | NUR ---
OVENS SUPERVISOR CLOSING NOTES Patient remained in bed, intermittently sleeping, easily aroused. Alert and oriented x4, verbally responsive. Ambulatory with standby assist. Complained of pain with help of pain mgmt as requested. Not in any type of distress. No SOB or labored breathing noted. Afebrile. All due meds given and tolerated. Kept patient clean and dry. All needs provided and met. Safety measures in place. Bed in locked and lowest position with call light within reach. Will endorse to oncoming shift nurse. TELE: SInus Rhythm 68
--- NOTE | 2018-09-17 19:31 | NUR ---
PATIENT ACCOUNT LIAISON OPENING NOTES RECEIVED PATIENT IN BED AWAKE, ALERT AND ORIENTED X4, VERBALLY RESPONSIVE, ABLE TO MAKE NEEDS KNOWN. BREATHING EVEN AND UNLABORED. NO SOB NOTED. TOLERATING ROOM AIR. IV ON LEFT AC#20 INTACT AND PATENT. SKIN DRY AND WARM TO TOUCH. AFEBRILE. NO COMPLAINTS OF PAIN OR DISCOMFORT. NO FACIAL GRIMACING. ALL OTHER NEEDS ATTENDED TO. SAFETY MEASURES IN PLACE. CALL LIGHT WITHIN REACH. WILL CONTINUE TO MONITOR.
[2018-09-17 20:43] VITALS: BP 148/79
[2018-09-18 00:30] VITALS: BP 139/77
[2018-09-18 04:37] VITALS: BP 156/91
[2018-09-18 06:00] VITALS: BP 196/98
--- NOTE | 2018-09-18 06:10 | NUR ---
NOTCHER NOTES PATIENT REQUESTED FOR DRAIN TILER TO TAKE BLOOD PRESSURE BECAUSE HE WANTS TO TAKE HIS BLOOD PRESSURE MEDICATIONS ALREADY. PER PATIENT, HE'S BEEN TAKING THEM AT 6:00AM FOR THE PAST 5 YEARS. DRAIN TILER TOOK PATIENT'S BLOOD PRESSURE 198/68 HR 102. DRAIN TILER WITNESSED PATIENT GET MEDICATIONS OFF OF HIS BELONGING BAG TO TAKE. DRAIN TILER INFORMED PATIENT TO WAIT FOR NURSE BEFORE TAKING MEDICATIONS - PATIENT AGREED. DRAIN TILER INFORMED ME THAT PATIENT HAS MEDICATIONS AT BEDSIDE AND THAT HE WANTS TO TAKE IT ALREADY. I WENT IMMEDIATELY TO PATIENT'S ROOM. PATIENT HAD ALREADY TAKEN THE MEDICATIONS. PER PATIENT, HE TOOK METOPROLOL 50 MG 1 TAB PO, BENAZEPRIL 40MG 1 TAB PO, AMLODIPINE 5MG 1 TAB PO, AND A COQ10. PATIENT STATED THAT HE 'COULDN'T WAIT' BECAUSE HE'S HAD A STROKE BEFORE AND WANTS TO PREVENT THAT FROM HAPPENING AGAIN. INFORMED PATIENT THAT THE MEDICATIONS HE TOOK WERE ALREADY SCHEDULED FOR LATER ON, BUT PATIENT INSISTED THAT THEY NEEDED TO BE TAKEN AT THE MOMENT. INFORMED PATIENT THAT I NEED TO TAKE HIS MEDICATIONS TO PHARMACY FOR SAFE KEEPING BUT PATIENT REFUSED. ALSO INFORMED HIM THAT HE WILL GET THEM BACK UPON DISCHARGE AND THAT WE WILL USE OUR OWN MEDICATIONS. PATIENT STILL REFUSED. CHARGE NURSE MADE AWARE WITH INSTRUCTIONS TO INFORM ONCOMING NURSE NOT TO ADMIN MEDICATIONS.. WILL INFORM ONCOMING NURSE.
[2018-09-18 06:14] LABS: BASOPHILS % (AUTO) 0.6 % (0.0-2.0); EOSINOPHILS % (AUTO) 3.5 % (0.0-6.0); HEMATOCRIT 47 % (39-51); HEMOGLOBIN 15.8 g/dL (13.5-17.5); LYMPHOCYTES # (AUTO) 2.3 /CMM (0.8-4.8); LYMPHOCYTES % (AUTO) 35.4 % (20.0-44.0); MEAN CORPUSCULAR HGB CONC 34 g/dl (31.0-36.0); MEAN CORPUSCULAR VOLUME 89 fL (80-96); MONOCYTES # (AUTO) 0.5 /CMM (0.1-1.30); MONOCYTES % (AUTO) 8.3 % (2.0-12.0); NEUTROPHILS # (AUTO) 3.4 /CMM (1.8-8.9); NEUTROPHILS % (AUTO) 52.2 % (43.0-81.0); PLATELET COUNT (AUTO) 204 /CMM (150-450); RED BLOOD CELL COUNT(AUTO) 5.28 MIL/uL (4.5-6.0); WHITE BLOOD COUNT (AUTO) 6.6 K/uL (4.3-11.0)
[2018-09-18 06:26] LABS: CALCIUM, SERUM 8.7 mg/dL (8.5-10.1); CARBON DIOXIDE 25 mmol/L (21-32); CHLORIDE 106 mmol/L (98-107); CREATININE 0.9 mg/dL (0.6-1.3); GLUCOSE 114 mg/dL (74-106); MAGNESIUM 2.2 mg/dL (1.8-2.4); PHOSPHORUS 2.9 mg/dL (2.5-4.9); POTASSIUM 3.7 mmol/L (3.5-5.1); SODIUM SERUM 142 mmol/L (136-145); UREA NITROGEN, BLOOD 13 mg/dL (7-18)
[2018-09-18 06:27] LABS: CHOLESTEROL 120 mg/dL (<200); HDL CHOLESTEROL 34 mg/dL (40-60); LDL 68 mg/dL (0-99); TRIGLYCERIDES 163 mg/dL (30-150)
--- NOTE | 2018-09-18 06:37 | NUR ---
DICTAPHONE TECHNICIAN NOTES CHARGE NURSE SPOKE TO PATIENT ABOUT GIVING MEDICATIONS TO PHARMACY. PATIENT AGREED. RN TOOK MEDICATIONS AND SEALED IN BAG FOR SAFE KEEPING, TO BE SENT DOWN TO PHARMACY.
--- NOTE | 2018-09-18 06:41 | NUR ---
MENS LOCKER ROOM ATTENDANT CLOSING NOTES PATIENT IN BED AWAKE, NO ACUTE CHANGES THROUGHOUT SHIFT. BREATHING EVEN AND UNLABORED. NO SOB NOTED. TOLERATING ROOM AIR. IV ON LEFT AC#20 INTACT AND PATENT - NS @ 75ML/HR. SKIN DRY AND WARM TO TOUCH. AFEBRILE. NO COMPLAINTS OF PAIN OR DISCOMFORT. NO FACIAL GRIMACING. KEPT CLEAN AND COMFORTABLE. ALL OTHER NEEDS ATTENDED TO. SAFETY MEASURES IN PLACE. CALL LIGHT WITHIN REACH. WILL ENDORSE TO ONCOMING NURSE FOR CONTINUITY OF CARE.
--- NOTE | 2018-09-18 07:23 | NUR ---
MEDICAL SURGICAL TECH NOTES ENDORSE TO AUGUST RODRIGUEZ REGARDING HOLDING BP MEDS SCHEDULED FOR 0900.
--- NOTE | 2018-09-18 07:25 | NUR ---
OTM CONSULTANT INITIAL NOTES Report received at bedside. Patient received in bed, awake and comfortable. Alert and oriented x4, verbally responsive. Complained of sinus headache with help of pain mgmt. No SOB/labored breathing noted. Not in any type of distress. Personal stash of BP medications turned in to pharmacy. BP meds taken by patient without permission to nurse. Morning BP meds on HOLD. Re-educated patient for double dosing safety. Safety measures in place. Will continue to monitor and assess patient. Call light within reach. TELE: SR Begum
[2018-09-18] MEDS ORDERED: PANTOPRAZOLE 40 MG TABLET.DR PO SCH (07:30)
[2018-09-18] MEDS: ACETAMINOPHEN 325 MG TABLET PO PRN (07:40)
[2018-09-18 08:00] VITALS: BP 163/94
[2018-09-18] MEDS: METOPROLOL TARTRATE 50 MG TABLET PO SCH ×2 (08:13→16:05)
[2018-09-18] MEDS: TAMSULOSIN 0.4 MG CAP.SR.24H PO SCH (08:13)
[2018-09-18] MEDS: ASPIRIN EC 81 MG TABLET.DR PO SCH (08:13)
[2018-09-18] MEDS: AMLODIPINE BESYLATE 5 MG TABLET PO SCH (08:14)
[2018-09-18] MEDS ORDERED: BENAZEPRIL HCL 20 MG TABLET PO SCH (09:00)
[2018-09-18 15:48] VITALS: BP 183/85
--- NOTE | 2018-09-18 15:49 | NUR ---
MS RN NOTES BP 183/85 90 20 97.5 96% Provider made aware of patient's high BP. New order of Hydralazine 10mg IV
[2018-09-18] MEDS ORDERED: hydrALAZINE HCL IV 20 MG VIAL IV PRN (16:00)
[2018-09-18 16:05] VITALS: BP 183/85
--- NOTE | 2018-09-18 17:15 | NUR ---
MS SAILING INSTRUCTOR NOTES Patient was cleared to discharge home by provider. Patient alert and oriented x4, verbally responsive. Discharge instructions provided to patient with emphasis on med compliance and importance of doctors appointments: verbalized understanding. Discharge papers provided and signed. Belongings form signed. Belongings returned to patient including personal medications stored from the pharmacy. IV access removed with cath tip intact and no bleeding noted. Afebrile. Assisted to change clothes. All anticipated needs provided and met. All due meds given and tolerated. Denies any pain. Denies any N/V/Dizziness. No SOB/labored breathing noted. Not in any type of distress. Transportation fair provided. Escorted to the Lobby in stable condition. 141/83 68 18 98.6 96% RA
== END 2018-09-18 17:10 | disposition home or self-care (01) | DRG 74 ==
LOC: ER 05:06 → TELE 10:37 → MED 09-18 10:12
PROVIDERS: ADMIT Nurse Practitioner Acute Care; ATTEND Nurse Practitioner Acute Care
DX: G90.8 Other disorders of autonomic nervous system (principal); I16.0 Hypertensive urgency; I10 Essential (primary) hypertension; E78.5 Hyperlipidemia, unspecified; N40.0 Benign prostatic hyperplasia without lower urinary tract symptoms; Z86.73 Personal history of transient ischemic attack (TIA), and cerebral infarction without residual deficits; I65.29 Occlusion and stenosis of unspecified carotid artery; R73.03 Prediabetes; Z88.8 Allergy status to other drugs, medicaments and biological substances; Z88.0 Allergy status to penicillin; Z91.013 Allergy to seafood; Z79.899 Other long term (current) drug therapy; Z79.82 Long term (current) use of aspirin; I70.0 Atherosclerosis of aorta; H26.9 Unspecified cataract; Z98.890 Other specified postprocedural states; H81.399 Other peripheral vertigo, unspecified ear
CPT/HCPCS: 36415; 70450-TC; 71045-TC; 80048-TC; 80061-TC; 80076-TC; 81000-TC; 83735-TC; 84100-TC; 84484-TC; 85025-TC; 85652-TC; 85730-TC; 87081-TC; A4606; G0378; J0360; J7030; Z7610

== ENCOUNTER 2018-11-14 23:29 | Emergency (ER) | payer BC ==
[~2018-11-14] VITALS: Ht 170.2 cm; Wt 83.9 kg
[~2018-11-14 23:29] MED LIST changes: -AMLO5TAB7 PO; +AMLO5TAB9 PO; -ROSU10TA PO; +ROSU10TA2 PO; +TAMS0.4C34 PO
--- NOTE | 2018-11-14 23:35 | NUR ---
Pt JUN complaining of weakness/dizziness. Pt states that he "fainted twice today" at 2000 and 2200. Pt AXO4. Respirations are even and unlabored. Pt put on the monitor and pending eval from MISSY LAIRD.
--- NOTE | 2018-11-14 23:52 | NUR ---
Time Study Technician at bedside for lab draw.
--- NOTE | 2018-11-15 00:05 | NUR ---
EKG at bedside.
[2018-11-15 00:06] LABS: BASOPHILS # (AUTO) 0.1 /CMM (0.0-0.2); BASOPHILS % (AUTO) 0.6 % (0.0-2.0); EOSINOPHILS % (AUTO) 5.1 % (0.0-6.0); HEMATOCRIT 33 % (39-51); HEMOGLOBIN 11.3 g/dL (13.5-17.5); LYMPHOCYTES # (AUTO) 3.5 /CMM (0.8-4.8); LYMPHOCYTES % (AUTO) 39.7 % (20.0-44.0); MEAN CORPUSCULAR HGB CONC 35 g/dl (31.0-36.0); MEAN CORPUSCULAR VOLUME 90 fL (80-96); MONOCYTES # (AUTO) 0.7 /CMM (0.1-1.30); MONOCYTES % (AUTO) 7.6 % (2.0-12.0); NEUTROPHILS # (AUTO) 4.2 /CMM (1.8-8.9); PLATELET COUNT (AUTO) 202 /CMM (150-450); RED BLOOD CELL COUNT(AUTO) 3.65 MIL/uL (4.5-6.0); WHITE BLOOD COUNT (AUTO) 8.9 K/uL (4.3-11.0)
[2018-11-15 00:08] LABS: CALCIUM, SERUM 8.2 mg/dL (8.5-10.1); CARBON DIOXIDE 25 mmol/L (21-32); CHLORIDE 105 mmol/L (98-107); CREATININE 1.2 mg/dL (0.6-1.3); GLUCOSE 157 mg/dL (74-106); POTASSIUM 3.7 mmol/L (3.5-5.1); SODIUM SERUM 140 mmol/L (136-145); UREA NITROGEN, BLOOD 38 mg/dL (7-18)
--- NOTE | 2018-11-15 00:08 | NUR ---
Pt taken to CT.
[2018-11-15] MEDS ORDERED: ONDANSETRON HCL/PF - ER 4 MG/2 ML VIAL IV ONE (00:30)
[2018-11-15] MEDS ORDERED: IV NS 0.9% 1,000 ML BAG IV ONE ×2 (00:30→02:30)
[2018-11-15] MEDS ORDERED: ONDANSETRON HCL/PF 4 MG/2 ML VIAL ONE (00:35)
--- NOTE | 2018-11-15 02:14 | NUR ---
Transfer Information- [facility]. Bed 301-2 Dr. Jimenez [phone] Call for Report ext. [phone] Rent And Housing Investigator- Lucita Auth. for Transport [id number]
--- NOTE | 2018-11-15 02:23 | NUR ---
[facility] CALLED FOR [facility]. ETA 1 HR. TRIP#[id number]
--- NOTE | 2018-11-15 02:26 | NUR ---
SOC[facility] ROOM CHANGE [phone]. EXT. [phone]
--- NOTE | 2018-11-15 02:34 | NUR ---
Report given to Anant KOCH for bed 411B at [facility] for NADIYA.
--- NOTE | 2018-11-15 02:53 | NUR ---
Patient is resting comfortably in bed with eyes closed. Easily aroused. VSS. NAD noted.
[2018-11-15 02:54] VITALS: BP 131/73
== END 2018-11-15 03:26 ==
LOC: ER 23:29
DX: R55 Syncope and collapse (principal); E86.0 Dehydration; D64.9 Anemia, unspecified; I10 Essential (primary) hypertension; N40.0 Benign prostatic hyperplasia without lower urinary tract symptoms; E78.5 Hyperlipidemia, unspecified; I25.10 Atherosclerotic heart disease of native coronary artery without angina pectoris; R94.31 Abnormal electrocardiogram [ECG] [EKG]; Z90.49 Acquired absence of other specified parts of digestive tract; Z95.5 Presence of coronary angioplasty implant and graft; Z88.0 Allergy status to penicillin; Z88.8 Allergy status to other drugs, medicaments and biological substances; Z79.82 Long term (current) use of aspirin
CPT/HCPCS: 36415; 70450; 71045; 80048; 84484; 85025; 85730; 87081; 93005; 96361; 96374; 99285; A4606; J2405 ×2; J7030 ×2

== ENCOUNTER 2018-11-20 13:07 | Emergency (ER) | payer BC ==
[~2018-11-20] VITALS: Ht 175.3 cm; Wt 85.7 kg
--- NOTE | 2018-11-20 13:07 | NUR ---
PT BIBRA FROM HOME FOR GENERALIZED WEAKNESS; PT AAOX2-3, PT ON MONITOR, VSS, NAD NOTED, PENDING MD CROWDER.
[2018-11-20] MEDS ORDERED: IV NS 0.9% 1,000 ML BAG IV ONE (13:30)
[2018-11-20 13:44] LABS: BASOPHILS % (AUTO) 0.8 % (0.0-2.0); EOSINOPHILS % (AUTO) 6.6 % (0.0-6.0); HEMATOCRIT 27 % (39-51); HEMOGLOBIN 9.1 g/dL (13.5-17.5); LYMPHOCYTES % (AUTO) 31.6 % (20.0-44.0); MEAN CORPUSCULAR HGB CONC 34 g/dl (31.0-36.0); MEAN CORPUSCULAR VOLUME 89 fL (80-96); MONOCYTES # (AUTO) 0.5 /CMM (0.1-1.30); MONOCYTES % (AUTO) 8.7 % (2.0-12.0); NEUTROPHILS # (AUTO) 3.3 /CMM (1.8-8.9); NEUTROPHILS % (AUTO) 52.3 % (43.0-81.0); PLATELET COUNT (AUTO) 225 /CMM (150-450); RED BLOOD CELL COUNT(AUTO) 3.04 MIL/uL (4.5-6.0); WHITE BLOOD COUNT (AUTO) 6.3 K/uL (4.3-11.0)
[2018-11-20 13:51] LABS: CALCIUM, SERUM 8.6 mg/dL (8.5-10.1); CARBON DIOXIDE 25 mmol/L (21-32); CHLORIDE 107 mmol/L (98-107); CREATININE 1.2 mg/dL (0.6-1.3); GLUCOSE 121 mg/dL (74-106); POTASSIUM 3.4 mmol/L (3.5-5.1); SODIUM SERUM 139 mmol/L (136-145); UREA NITROGEN, BLOOD 13 mg/dL (7-18)
[2018-11-20 13:57] LABS: ALANINE AMINOTRANSFERASE 34 U/L (12-78); ALBUMIN 3.5 g/dL (3.4-5.0); ALKALINE PHOSPHATASE 76 U/L (46-116); ASPARTATE AMINOTRANSFERASE 22 U/L (15-37); BILIRUBIN,DIRECT 0.1 mg/dL (0.0-0.2); BILIRUBIN,TOTAL 0.5 mg/dL (0.2-1.0); TOTAL PROTEIN, SERUM 6.2 g/dL (6.4-8.2)
[2018-11-20 14:33] LABS: THYROID STIMULATING HORMONE 1.891 uIU/mL (0.358-3.74)
[2018-11-20 14:53] LABS: APPEARANCE,URINE Clear (CLEAR); BILIRUBIN,URINE Negative (NEGATIVE); BLOOD, URINE Trace-intact Ery/uL (NEGATIVE); COLOR,URINE Yellow (YELLOW); KETONES,URINE Trace (NEGATIVE); LEUKOCYTE ESTERASE ,URINE Negative (NEGATIVE); NITRITE, URINE Negative (NEGATIVE); PH,URINE 6.5 (5.0-8.0); PROTEIN,URINE 30 mg/dl (NEGATIVE); UGLUCOSE Negative (NEGATIVE); UROBILINOGEN,URINE 0.2 EU/dL (0.2)
[2018-11-20 15:04] LABS: BACTERIA,URINE None seen /HPF (None Seen); HYALINE CASTS, URINE 0-1 /LPF (None Seen); SQUAMOUS EPITHELIAL CELL,UR Few /HPF (None Seen); WBC,URINE 0-3 /HPF (0-3)
--- NOTE | 2018-11-20 18:26 | NUR ---
CALL RECEIVED RUBIO FROM [facility], WANTS US TO CALL DR NIX AT [phone] FOR A SIGN OUT FROM DR DUBOSE. HE WILL TRY TO GET A BED AT [facility].
--- NOTE | 2018-11-20 18:32 | NUR ---
DNUMBER GIVEN FOR DR NIX CALLED, LEFT A MESSAGE TO CALL US BACK.
--- NOTE | 2018-11-20 19:02 | NUR ---
[facility] [phone] CALL FOR REPORT OLIVE KOCH POCKET BU[employer] AUTH FOR AMBULANCE [id number] DARLENE HAYR
--- NOTE | 2018-11-20 19:16 | NUR ---
CALLED [facility] @1915 FOR ALS TRANSPORT, SPOKE WITH SAMANTHA: TRIP #[id number] ETA [phone] ([phone])
--- NOTE | 2018-11-20 19:21 | NUR ---
called for report, nurse unavailable at this time. will call back
--- NOTE | 2018-11-20 19:58 | NUR ---
REPORT GIVEN TO FEM NURSE / CHARGE NURSE AT [facility]; AWARE OF CURRENT BP OF PT
--- NOTE | 2018-11-20 20:18 | NUR ---
TRANSPORT AT BEDSIDE REPORT GIVEN TO EMT.
[2018-11-20 20:19] VITALS: BP 177/77
== END 2018-11-20 20:21 | disposition home or self-care (01) ==
LOC: ER 13:07
DX: R53.1 Weakness (principal); R55 Syncope and collapse; I10 Essential (primary) hypertension; Z86.73 Personal history of transient ischemic attack (TIA), and cerebral infarction without residual deficits; Z90.49 Acquired absence of other specified parts of digestive tract; Z95.5 Presence of coronary angioplasty implant and graft; Z88.0 Allergy status to penicillin; Z60.2 Problems related to living alone; Z79.82 Long term (current) use of aspirin; Z88.8 Allergy status to other drugs, medicaments and biological substances
CPT/HCPCS: 36415; 70450-TC; 71045-TC; 80048-TC; 80076-TC; 81000-TC; 82962-TC; 84443-TC; 84484-TC; 85025-TC; 85730-TC; J7030; J7040

== ENCOUNTER 2019-01-10 23:37 | Emergency (ER) | payer BC ==
[~2019-01-10] VITALS: Ht 172.7 cm; Wt 83.5 kg
--- NOTE | 2019-01-10 23:48 | NUR ---
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 DENIES TRAUMA. PT ABLE TO AMBULATE FROM RA CHAIR TO GURNEY PT AOX4 RR EVEN AND UNLABORED. NO SOB NOTED. NAD NOTED. NO NVD AT THIS TIME. PT GOWNED AND PLACED ON MONITOR WAITING FOR MD CROWDER.
--- NOTE | 2019-01-11 00:09 | NUR ---
DR. GOODWIN AT BEDSIDE FOR EVAL.
[2019-01-11] MEDS ORDERED: HYDROCODONE/APAP 5/325MG 1 EACH TABLET PO ONE (00:30)
[2019-01-11] MEDS ORDERED: ONDANSETRON 4 MG TAB.RAPDIS SL ONE (00:30)
[2019-01-11] MEDS ORDERED: HYDROCODONE/APAP 5/325MG 1 EACH TABLET ONE (00:34)
[2019-01-11] MEDS ORDERED: ONDANSETRON 4 MG TAB.RAPDIS ONE (00:35)
--- NOTE | 2019-01-11 01:51 | NUR ---
MANNY AT BEDSIDE FOR EVAL.
--- NOTE | 2019-01-11 03:14 | NUR ---
PT RESTING AT THIS TIME. VSS. PT AROUSABLE.
--- NOTE | 2019-01-11 03:14 | NUR ---
CALLED [facility] FOR X-RAY TO BE READ.
--- NOTE | 2019-01-11 03:52 | NUR ---
DR. GOODWIN AT BEDSIDE SPEAKING TO PT REGARDING RESULTS
[2019-01-11 03:55] VITALS: BP 128/63
--- NOTE | 2019-01-11 03:55 | NUR ---
Patient discharged to home in stable condition. Written and verbal after care instructions given. Patient verbalizes understanding of instruction. ambulatory with a steady gait
== END 2019-01-11 03:56 | disposition home or self-care (01) ==
LOC: ER 23:39
DX: M54.16 Radiculopathy, lumbar region (principal); M25.551 Pain in right hip; I10 Essential (primary) hypertension; R53.1 Weakness; E78.00 Pure hypercholesterolemia, unspecified; N40.0 Benign prostatic hyperplasia without lower urinary tract symptoms; E78.5 Hyperlipidemia, unspecified; I25.10 Atherosclerotic heart disease of native coronary artery without angina pectoris; Z86.73 Personal history of transient ischemic attack (TIA), and cerebral infarction without residual deficits; Z98.890 Other specified postprocedural states; Z88.0 Allergy status to penicillin; Z60.2 Problems related to living alone; Z79.82 Long term (current) use of aspirin; Z88.8 Allergy status to other drugs, medicaments and biological substances
CPT/HCPCS: 72100; 73502; 93971; 99284; Q0162

== ENCOUNTER 2019-04-09 11:31 | Inpatient (IN) | payer BC ==
[~2019-04-09] VITALS: Ht 172.7 cm; Wt 77.1 kg
--- NOTE | 2019-04-09 11:39 | NUR ---
PT JUN FROM HOME FOR DIZZINESS; PT AAOX4, -SOB, NAD NOTED, VSS ,PENDING MD CROWDER
[2019-04-09] MEDS ORDERED: IV NS 0.9% 1,000 ML BAG IV ONE (12:00)
[2019-04-09 12:10] LABS: BASOPHILS % (AUTO) 0.6 % (0.0-2.0); HEMATOCRIT 46 % (39-51); HEMOGLOBIN 15.6 g/dL (13.5-17.5); LYMPHOCYTES # (AUTO) 2.4 /CMM (0.8-4.8); LYMPHOCYTES % (AUTO) 38.7 % (20.0-44.0); MEAN CORPUSCULAR HGB CONC 34 g/dl (31.0-36.0); MEAN CORPUSCULAR VOLUME 88 fL (80-96); MONOCYTES # (AUTO) 0.5 /CMM (0.1-1.30); MONOCYTES % (AUTO) 8.4 % (2.0-12.0); NEUTROPHILS # (AUTO) 2.9 /CMM (1.8-8.9); NEUTROPHILS % (AUTO) 46.3 % (43.0-81.0); PLATELET COUNT (AUTO) 202 /CMM (150-450); RED BLOOD CELL COUNT(AUTO) 5.18 MIL/uL (4.5-6.0); WHITE BLOOD COUNT (AUTO) 6.2 K/uL (4.3-11.0)
[2019-04-09 12:23] LABS: CALCIUM, SERUM 8.7 mg/dL (8.5-10.1); CARBON DIOXIDE 24 mmol/L (21-32); CHLORIDE 104 mmol/L (98-107); CREATININE 1.2 mg/dL (0.6-1.3); GLUCOSE 118 mg/dL (74-106); POTASSIUM 3.9 mmol/L (3.5-5.1); SODIUM SERUM 140 mmol/L (136-145); UREA NITROGEN, BLOOD 18 mg/dL (7-18)
[2019-04-09 12:42] LABS: ALKALINE PHOSPHATASE 69 U/L (46-116); ASPARTATE AMINOTRANSFERASE 12 U/L (15-37); BILIRUBIN,DIRECT 0.1 mg/dL (0.0-0.2); BILIRUBIN,TOTAL 0.6 mg/dL (0.2-1.0)
[2019-04-09 12:43] LABS: ALANINE AMINOTRANSFERASE 23 U/L (12-78); ALBUMIN 3.9 g/dL (3.4-5.0)
--- NOTE | 2019-04-09 12:58 | NUR ---
GAVE MOVE SHEET TO ADMITTING
--- NOTE | 2019-04-09 12:59 | NUR ---
CALLED NURSING SUP REQUETED TELE BED
--- NOTE | 2019-04-09 14:13 | NUR ---
REPORT GIVEN TO RADHAMES KOCH FOR NADIYA; PT WILL BE TRANSPORTED TO 3RD FLOOR VIA ACLS PROTOOCL
[2019-04-09] MEDS ORDERED: ASPIRIN 81 MG TAB.CHEW PO ONE (14:30)
[2019-04-09] MEDS ORDERED: ASPIRIN 81 MG TAB.CHEW ONE (15:49)
[2019-04-09 16:00] VITALS: BP 189/91
--- NOTE | 2019-04-09 16:13 | NUR ---
PT TRANSFERRED TO 3RD FLOOR VIA ACLS PROTOCOL
--- NOTE | 2019-04-09 16:15 | NUR ---
BOOM CONVEYOR OPERATOR NOTES RECEIVED PT FROM E.R. STAFF VIA [facility], PT ABLE TO WALK STEADILY TO BED, MADE COMFORTABLE, ROOM SET UP ORIENTATION PROVIDED TO PT, VERBALIZED UNDERSTANDING, CALL LIGHT PLACED WITHIN REACH, PT HAS NO PAIN, RESPIRATIONS NORMAL, TOLERATING ROOM AIR, NEURO CHECK DONE, NO DEFICIT NOTED, AWAITING ADMITTING ORDERS FROM DR. DALY.
[2019-04-09] MEDS ORDERED: MAGNESIUM HYDROXIDE 30 ML UDC PO PRN (18:00)
[2019-04-09] MEDS ORDERED: MAG HYDROX/AL HYDROX/SIMETH 30 ML UDC PO PRN (18:00)
[2019-04-09] MEDS ORDERED: Z GUARD REMEDY 2 OZ OINT TP PRN (18:00)
[2019-04-09] MEDS ORDERED: ONDANSETRON HCL/PF 4 MG/2 ML VIAL IVP PRN (18:00)
[2019-04-09] MEDS ORDERED: HYDROCODONE/APAP 5/325MG 1 EACH TABLET PO PRN (18:00)
[2019-04-09] MEDS: AMLODIPINE BESYLATE 10 MG TABLET PO SCH (18:30)
[2019-04-09] MEDS: BENAZEPRIL HCL 20 MG TABLET PO SCH (18:47)
[2019-04-09] MEDS: METOPROLOL TARTRATE 50 MG TABLET PO SCH (18:49)
--- NOTE | 2019-04-09 19:00 | NUR ---
CHIEF NURSE EXECUTIVE NOTES PT IN BED, AWAKE, ALERT AND ORIENTED, DENIES PAIN, NOT IN DISTRESS, NO COMPLAINT OF DIZZINESS, NEURO CHECKS DONE, NO DEFICITS NOTED, PASSED SWALLOW SCREEN, PM MEDS GIVEN, PT ABLE TO AMBULATE TO THE BATHROOM WITH STEADY GAIT, CALL LIGHT WITHIN REACH, PT SEEN BY NEUROLOGIST, ALL NEEDS ATTENDED.
--- NOTE | 2019-04-09 19:30 | NUR ---
RN PM TELE OPENING NOTE BEDSIDE REPORT RECIEVED FROM MARIANA KOCH. PT IN BED, AWAKE, ALERT AND ORIENTED, DENIES PAIN, NO APPARENT DISTRESS, DENIES FEELING DIZZY, NO DEFICITS NOTED DURING NEURO CHECK. POC REVIEWED WITH PATIENT QUESTIONS CONCERNS ADDRESSED. PT REPORTS HE IS ABLE TO AMBULATE TO THE BATHROOM WITH STEADY GAIT. DISCUSSED THAT BECAUSE OF DIZZY DX THAT THE BED ALARM WOULD HAVE TO BE ACTIVE FOR SAFETY PATIENT STATES REFUSAL SAYING, "I WOULD LIKE TO HAVE THAT OFF IF YOU DON'T MIND, I DON'T THINK ITS NECESSARY, I HAVEN'T BEEN DIZZY SINCE I GOT HERE." CALL LIGHT WITHIN REACH BED DOWN AND LOCKED PATIENT VERBALIZED UNDERSTANDING TO CALL FOR ASSISTANCE NEEDED.
[2019-04-09 20:00] VITALS: BP 162/89
[2019-04-09] MEDS: ACETAMINOPHEN 325 MG TABLET PO PRN (23:44)
[2019-04-10] VITALS: BP 154/85
[2019-04-10 01:14] LABS: APPEARANCE,URINE CLEAR (CLEAR); BILIRUBIN,URINE NEGATIVE (NEGATIVE); BLOOD, URINE 1+ Ery/uL (NEGATIVE); COLOR,URINE YELLOW (YELLOW); KETONES,URINE NEGATIVE (NEGATIVE); LEUKOCYTE ESTERASE ,URINE NEGATIVE (NEGATIVE); NITRITE, URINE NEGATIVE (NEGATIVE); PROTEIN,URINE NEGATIVE (NEGATIVE); UGLUCOSE NEGATIVE (NEGATIVE); UROBILINOGEN,URINE 0.2 EU/dL (0.2)
[2019-04-10 01:36] LABS: BACTERIA,URINE Rare /HPF (None Seen); SQUAMOUS EPITHELIAL CELL,UR Rare /HPF (None Seen); WBC,URINE 0-2 /HPF (0-3)
--- NOTE | 2019-04-10 01:51 | NUR ---
PATIENT HAS SR IN THE 70'S ON THE MONITOR.
[2019-04-10 04:00] VITALS: BP 168/85
[2019-04-10 06:50] LABS: BASOPHILS % (AUTO) 0.7 % (0.0-2.0); EOSINOPHILS % (AUTO) 6.2 % (0.0-6.0); HEMATOCRIT 47 % (39-51); HEMOGLOBIN 15.9 g/dL (13.5-17.5); LYMPHOCYTES % (AUTO) 28.9 % (20.0-44.0); MEAN CORPUSCULAR HGB CONC 34 g/dl (31.0-36.0); MEAN CORPUSCULAR VOLUME 88 fL (80-96); MONOCYTES # (AUTO) 0.7 /CMM (0.1-1.30); MONOCYTES % (AUTO) 9.9 % (2.0-12.0); NEUTROPHILS # (AUTO) 3.7 /CMM (1.8-8.9); NEUTROPHILS % (AUTO) 54.3 % (43.0-81.0); PLATELET COUNT (AUTO) 203 /CMM (150-450); WHITE BLOOD COUNT (AUTO) 6.8 K/uL (4.3-11.0)
[2019-04-10 07:17] LABS: CALCIUM, SERUM 8.5 mg/dL (8.5-10.1); CARBON DIOXIDE 22 mmol/L (21-32); CHLORIDE 106 mmol/L (98-107); CREATININE 0.9 mg/dL (0.6-1.3); GLUCOSE 133 mg/dL (74-106); MAGNESIUM 2.4 mg/dL (1.8-2.4); PHOSPHORUS 3.1 mg/dL (2.5-4.9); POTASSIUM 3.9 mmol/L (3.5-5.1); SODIUM SERUM 140 mmol/L (136-145); UREA NITROGEN, BLOOD 11 mg/dL (7-18)
[2019-04-10 07:20] LABS: CHOLESTEROL 111 mg/dL (<200); HDL CHOLESTEROL 34 mg/dL (40-60); LDL 61 mg/dL (0-99); THYROID STIMULATING HORMONE 1.644 uIU/mL (0.358-3.74); TRIGLYCERIDES 141 mg/dL (30-150)
--- NOTE | 2019-04-10 07:36 | NUR ---
GARDEN MACHINERY MECHANIC CLOSING NOTES PT IN BED, AWAKE, ALERT AND ORIENTED, DENIES PAIN, NOT IN DISTRESS, NO COMPLAINT OF DIZZINESS, NEURO CHECKS DONE, NO DEFICITS NOTED, PT ABLE TO AMBULATE WITH STEADY GAIT, CALL LIGHT WITHIN REACH. BED DOWN LOCKED SRX2 CALL LIGHT WITHIN REACH.
--- NOTE | 2019-04-10 07:55 | NUR ---
ms rn received on bed, awake,alert,oriented x4,not in any form of distress, respiratins even and unlabored,no sob noted, denies dizziness at this time, all needs attended.
[2019-04-10 08:00] VITALS: BP 131/72
--- NOTE | 2019-04-10 08:00 | NUR ---
ms rn patient's b/p elevated, will give meds.
[2019-04-10] MEDS: TAMSULOSIN 0.4 MG CAP.SR.24H PO SCH (08:48)
[2019-04-10] MEDS: ASPIRIN EC 81 MG TABLET.DR PO SCH (08:49)
[2019-04-10] MEDS: METOPROLOL TARTRATE 50 MG TABLET PO SCH ×2 (08:50→17:23)
[2019-04-10] MEDS: AMLODIPINE BESYLATE 10 MG TABLET PO SCH (08:50)
[2019-04-10] MEDS: BENAZEPRIL HCL 20 MG TABLET PO SCH ×2 (08:51→17:23)
[2019-04-10] MEDS ORDERED: BENAZEPRIL HCL 20 MG TABLET PO SCH (09:00)
[2019-04-10] MEDS ORDERED: METOPROLOL TARTRATE 50 MG TABLET PO SCH (09:00)
[2019-04-10] MEDS ORDERED: AMLODIPINE BESYLATE 10 MG TABLET PO SCH (09:00)
--- NOTE | 2019-04-10 09:00 | NUR ---
ms zapata breakfast served,due meds given,tolerated well.
--- NOTE | 2019-04-10 09:35 | NUR ---
ms rn rechecked b/p, at the 130's, wnl, denies pain,all needs attended.
[2019-04-10 15:30] VITALS: BP 149/78
[2019-04-10] MEDS ORDERED: hydrALAZINE HCL IV 20 MG VIAL IV PRN (15:30)
[2019-04-10] MEDS ORDERED: CALCIUM CARBONATE 500 MG TAB.CHEW PO PRN (16:00)
--- NOTE | 2019-04-10 16:00 | NUR ---
ms rn on bed, no distress noted.
[2019-04-10] MEDS: METFORMIN 500 MG TABLET PO SCH (17:19)
--- NOTE | 2019-04-10 18:00 | NUR ---
ms rn eating dinner at this time,all needs attended.
[2019-04-10] MEDS: CLOPIDOGREL BISULFATE 75 MG TABLET PO SCH (18:58)
[2019-04-10 20:00] VITALS: BP 134/77
--- NOTE | 2019-04-10 20:00 | NUR ---
ms marcella initial notes seen pt in bed while were doing our report and seen pt in bed sitting while watching TV. denies any pain or any discomfort. denies any n/v . steady gait noted when he walked to the bathroom. kept him warm and comfortable at all times. place call light at reach. will continue monitoring.
--- NOTE | 2019-04-10 20:32 | NUR ---
Met with patient, he is alert and pleasant.States has very limited support, has no relative or friends locally.He lives alone in the first floor apartment. He is ambulatory and independent with adl's at baseline. Denies having DME or homehealth. He goes to [facility] for outpt therapy needs. His pcp is Dr. Arthur Franco at [facility] [phone]. He need assistance with transportation to go home. Addendum: 04/10/19 at 2032 by MARÍA ELENA JIANG RN Amended: Links added.
[2019-04-10] MEDS ORDERED: [UNRECOGNIZED DRUG - OTHER] PO SCH (22:00)
[2019-04-10] MEDS ORDERED: ROSUVASTATIN 10 MG PO SCH (22:00)
--- NOTE | 2019-04-11 00:20 | NUR ---
ms marcella notes pt sleeping comfortably in bed without any distress noted. kept him warm and comfortable at all times. will continue monitoring.
--- NOTE | 2019-04-11 04:00 | NUR ---
ms manager occupational notes pt resting but arouse to touch, denies any pain or any discomfort. kept him warm and comfortable at all times;. place call light at reach.
[2019-04-11] MEDS: BENAZEPRIL HCL 20 MG TABLET PO SCH (05:59)
[2019-04-11] MEDS: METOPROLOL TARTRATE 50 MG TABLET PO SCH ×2 (06:00→12:30)
[2019-04-11 06:34] LABS: BASOPHILS % (AUTO) 0.6 % (0.0-2.0); HEMATOCRIT 46 % (39-51); HEMOGLOBIN 15.6 g/dL (13.5-17.5); LYMPHOCYTES # (AUTO) 2.8 /CMM (0.8-4.8); LYMPHOCYTES % (AUTO) 35.7 % (20.0-44.0); MEAN CORPUSCULAR HGB CONC 34 g/dl (31.0-36.0); MEAN CORPUSCULAR VOLUME 88 fL (80-96); MONOCYTES # (AUTO) 0.8 /CMM (0.1-1.30); MONOCYTES % (AUTO) 10.4 % (2.0-12.0); NEUTROPHILS # (AUTO) 3.8 /CMM (1.8-8.9); NEUTROPHILS % (AUTO) 47.3 % (43.0-81.0); PLATELET COUNT (AUTO) 204 /CMM (150-450)
[2019-04-11 06:35] LABS: ALANINE AMINOTRANSFERASE 20 U/L (12-78); ALBUMIN 3.5 g/dL (3.4-5.0); ALKALINE PHOSPHATASE 63 U/L (46-116); ASPARTATE AMINOTRANSFERASE 11 U/L (15-37); BILIRUBIN,TOTAL 1.1 mg/dL (0.2-1.0); CALCIUM, SERUM 8.5 mg/dL (8.5-10.1); CARBON DIOXIDE 22 mmol/L (21-32); CHLORIDE 104 mmol/L (98-107); CREATININE 1.1 mg/dL (0.6-1.3); GLUCOSE 110 mg/dL (74-106); LIPASE 81 U/L (73-393); POTASSIUM 3.8 mmol/L (3.5-5.1); SODIUM SERUM 137 mmol/L (136-145); TOTAL PROTEIN, SERUM 6.4 g/dL (6.4-8.2); UREA NITROGEN, BLOOD 14 mg/dL (7-18)
--- NOTE | 2019-04-11 07:06 | NUR ---
ms ophthalmic photographer closing notes pt back to sleep after routine meds given as ordered. stable cruz the night and slept well. all due meds given and all needs met. denies any dizziness or any discomfort . kept him warm and comfortable at all times . no signs of any acute stroke noted. will endorse to am nurse for continuity of care. place call light at reach.
[2019-04-11 08:00] VITALS: BP 150/86
--- NOTE | 2019-04-11 08:00 | NUR ---
MS RN Initial notes Seen pt in bed sitting while watching TV. denies any pain,distress or any discomfort. Denies any n/v .With steady gait noted when he walked to the bathroom. Kept him warm and comfortable at all times. Placed call light within reach. Will continue monitoring.
[2019-04-11] MEDS: AMLODIPINE BESYLATE 10 MG TABLET PO SCH (08:32)
[2019-04-11] MEDS: METFORMIN 500 MG TABLET PO SCH (08:32)
[2019-04-11] MEDS: ASPIRIN EC 81 MG TABLET.DR PO SCH (08:32)
[2019-04-11] MEDS: TAMSULOSIN 0.4 MG CAP.SR.24H PO SCH (08:32)
[2019-04-11] MEDS: CLOPIDOGREL BISULFATE 75 MG TABLET PO SCH (08:32)
[2019-04-11] MEDS: ACETAMINOPHEN 325 MG TABLET PO PRN (12:30)
[2019-04-11 15:52] VITALS: BP 142/78
[2019-04-11] MEDS ORDERED: CLOP75TA15 PO (16:30)
[2019-04-11] MEDS ORDERED: METF-440 PO (16:30)
--- NOTE | 2019-04-11 17:10 | NUR ---
DISCHARGED PT HOME WITH STABLE V/S.REFUSED TO TAKE THE PM MEDS AND WAS IN A HURRY TO GO HOME.IV H/L REMOVED TO LEFT AC WITH NO BLEEDING NOTED.REFUSED TO HAVE CTA PROCEDURE DONE PER DR GRAHAM.DR RODNEY AWARE AND STATED TO HAVE THE CTA DONE OUTPATIENT.CTA CANCELLED.INSTRUCTED TO FOLLOW UP WITH PMD AND NEUROLOGIST.DENIES ANY DIZZINESS,DISTRESS OR DISCOMFORT.
== END 2019-04-11 17:00 | disposition home or self-care (01) | DRG 68 ==
LOC: ER 11:33 → TELE 15:01 → MED 04-10 09:54
PROVIDERS: ADMIT Hospitalist; ATTEND Hospitalist
DX: I65.21 Occlusion and stenosis of right carotid artery (principal); E86.0 Dehydration; E11.9 Type 2 diabetes mellitus without complications; Z86.73 Personal history of transient ischemic attack (TIA), and cerebral infarction without residual deficits; I16.0 Hypertensive urgency; E78.5 Hyperlipidemia, unspecified; I10 Essential (primary) hypertension; K76.0 Fatty (change of) liver, not elsewhere classified; Z88.0 Allergy status to penicillin; Z88.8 Allergy status to other drugs, medicaments and biological substances; Z91.013 Allergy to seafood; Z79.899 Other long term (current) drug therapy; Z79.82 Long term (current) use of aspirin; Z98.62 Peripheral vascular angioplasty status; Z98.890 Other specified postprocedural states; H81.399 Other peripheral vertigo, unspecified ear; I70.0 Atherosclerosis of aorta; F10.21 Alcohol dependence, in remission; H26.9 Unspecified cataract
CPT/HCPCS: 36415; 70450-TC; 71045-TC; 76700-TC; 80048-TC; 80053-TC; 80061-TC; 80076-TC; 80305; 81000-TC; 83690-TC; 83735-TC; 83880; 84100-TC; 84443-TC; 84484-TC; 85025-TC; 85730-TC; 87081-TC; 87086-TC; 93880-TC; G0378

== ENCOUNTER 2019-07-10 12:45 | Emergency (ER) | payer BC ==
[~2019-07-10] VITALS: Ht 175.3 cm; Wt 83.9 kg
[~2019-07-10 12:45] MED LIST changes: +CLOP75TA15 PO; +METF-440 PO
--- NOTE | 2019-07-10 12:58 | NUR ---
PT [id number] FROM HOME "C/O RIGHT SIDED CHEST PAIN, NON-RADIATING SINCE 10AM" RECEIVED ASA 325MG AND NITRO SPRAYX1. PT AAOX4, BREATHING EVEN AND UNLABORED, AMBULATORY. PT [id number] TO THE MONITOR.
[2019-07-10] MEDS ORDERED: ASPIRIN 325 MG TABLET PO ONE (13:00)
[2019-07-10] MEDS ORDERED: ASPIRIN 325 MG TABLET ONE (13:00)
[2019-07-10] MEDS ORDERED: NITROGLYCERIN PACKET 1 GM PACKET ONE (13:00)
[2019-07-10] MEDS ORDERED: NITROGLYCERIN PACKET 1 GM PACKET TD ONE (13:00)
--- NOTE | 2019-07-10 13:05 | NUR ---
BLOOD COLLECTED AND SENT TO LAB
[2019-07-10 13:08] LABS: BASOPHILS % (AUTO) 0.6 % (0.0-2.0); EOSINOPHILS % (AUTO) 4.1 % (0.0-6.0); HEMATOCRIT 45 % (39-51); HEMOGLOBIN 15.4 g/dL (13.5-17.5); LYMPHOCYTES # (AUTO) 2.2 /CMM (0.8-4.8); MEAN CORPUSCULAR HGB CONC 34 g/dl (31.0-36.0); MEAN CORPUSCULAR VOLUME 90 fL (80-96); MONOCYTES # (AUTO) 0.6 /CMM (0.1-1.30); MONOCYTES % (AUTO) 9.7 % (2.0-12.0); NEUTROPHILS # (AUTO) 3.3 /CMM (1.8-8.9); NEUTROPHILS % (AUTO) 51.6 % (43.0-81.0); PLATELET COUNT (AUTO) 211 /CMM (150-450); RED BLOOD CELL COUNT(AUTO) 5.04 MIL/uL (4.5-6.0); WHITE BLOOD COUNT (AUTO) 6.4 K/uL (4.3-11.0)
[2019-07-10 13:14] LABS: CALCIUM, SERUM 9.8 mg/dL (8.5-10.1); CARBON DIOXIDE 29 mmol/L (21-32); CHLORIDE 101 mmol/L (98-107); CREATININE 1.2 mg/dL (0.6-1.3); GLUCOSE 129 mg/dL (74-106); POTASSIUM 3.6 mmol/L (3.5-5.1); SODIUM SERUM 138 mmol/L (136-145); UREA NITROGEN, BLOOD 12 mg/dL (7-18)
[2019-07-10 13:21] LABS: ALANINE AMINOTRANSFERASE 22 U/L (12-78); ALKALINE PHOSPHATASE 66 U/L (46-116); ASPARTATE AMINOTRANSFERASE 16 U/L (15-37); BILIRUBIN,DIRECT 0.1 mg/dL (0.0-0.2); BILIRUBIN,TOTAL 0.5 mg/dL (0.2-1.0); TOTAL PROTEIN, SERUM 6.8 g/dL (6.4-8.2)
[2019-07-10] MEDS ORDERED: HYDR-4076 PO (13:48)
--- NOTE | 2019-07-10 14:18 | NUR ---
INFO GIVEN TO TELLO FILLING MACHINE TENDER
--- NOTE | 2019-07-10 14:44 | NUR ---
SPOKE TO PLEAT PATTERNMAKER: DARLENE [phone] HE'S WORKING ON TRANSFERRING PT TO [facility] INPATIENT FLOOR.
--- NOTE | 2019-07-10 15:55 | NUR ---
DR UMER LAIRD TO .
--- NOTE | 2019-07-10 16:04 | NUR ---
SPOKE TO DARLENE, [place] [facility] [facility] NUM[place]: [phone] TO GIVE REPORT.
[2019-07-10] MEDS ORDERED: BENAZEPRIL HCL 10 MG TABLET ONE (16:49)
[2019-07-10] MEDS ORDERED: LOPERAMIDE HCL (2 MG CAP) 2 MG CAPSULE PO ONE ×2 (16:50→17:00)
[2019-07-10] MEDS ORDERED: SIMETHICONE SUSP 40 MG/0.6 ML BOTTLE PO ONE (17:00)
[2019-07-10] MEDS ORDERED: BENAZEPRIL HCL 10 MG TABLET PO ONE (17:00)
--- NOTE | 2019-07-10 17:01 | NUR ---
SPOKE TO DARLENE JOHNSTON MGR. HE WILL TRY TO GET A BED AT [facility].
[2019-07-10] MEDS ORDERED: SIMETHICONE SUSP 40 MG/0.6 ML BOTTLE ONE (17:04)
[2019-07-10 17:38] VITALS: BP 191/81
--- NOTE | 2019-07-10 18:30 | NUR ---
CALLED TO GIVE REPORT. RN FROM [facility] ASKED TO GIVE REPORT AFTER.
--- NOTE | 2019-07-10 19:45 | NUR ---
REPORT GIVEN TO AUGUST RODRIGUEZ
== END 2019-07-10 19:49 ==
LOC: ER 12:48
DX: R07.89 Other chest pain (principal); I10 Essential (primary) hypertension; Z98.890 Other specified postprocedural states; Z86.73 Personal history of transient ischemic attack (TIA), and cerebral infarction without residual deficits; Z88.0 Allergy status to penicillin; Z88.8 Allergy status to other drugs, medicaments and biological substances; Z60.2 Problems related to living alone; Z79.84 Long term (current) use of oral hypoglycemic drugs; Z79.82 Long term (current) use of aspirin; Z79.899 Other long term (current) drug therapy
CPT/HCPCS: 36415; 71045-TC; 80048-TC; 80076-TC; 84484-TC; 85025-TC; 87081-TC

== ENCOUNTER 2019-10-20 02:13 | Emergency (ER) | payer BC, MEDICARE ==
[~2019-10-20] VITALS: Ht 175.3 cm; Wt 79.4 kg
[~2019-10-20 02:13] MED LIST changes: +HYDR-4076 PO
[2019-10-20] MEDS ORDERED: IOHEXOL-350 100 ML VIAL IV ONE (02:49)
--- NOTE | 2019-10-20 02:59 | NUR ---
PT CAME TO ER BED 9 BIB RA C/O DIZZINESS. PT STATES THAT HE WOKE UP ANXIOUS ABOUT -0100 AND GOT UP TO URINATE AND TOOK HIS BLOOD PRESSURE AFTERWARDS AND SAID IT WAS IN THE 120s OVER 70s AND STATES IT WAS LOWER THAN USUAL AND FEELS LIKE THE ROOM IS SPINNING. LAST KNOWN STROKE WAS 03/28/2012. CURRENTLY DENIES CHEST PAIN. AAOX4. NO SOB. BREATHING EVENLY AND UNLABORED ON ROOM AIR. CONNECTED TO MONITOR. AWAITING MD'S EVAL.
[2019-10-20 03:12] LABS: BASOPHILS % (AUTO) 0.7 % (0.0-2.0); EOSINOPHILS % (AUTO) 6.6 % (0.0-6.0); HEMATOCRIT 45 % (39-51); LYMPHOCYTES # (AUTO) 1.7 /CMM (0.8-4.8); LYMPHOCYTES % (AUTO) 32.3 % (20.0-44.0); MEAN CORPUSCULAR HGB CONC 34 g/dl (31.0-36.0); MEAN CORPUSCULAR VOLUME 88 fL (80-96); MONOCYTES # (AUTO) 0.5 /CMM (0.1-1.30); NEUTROPHILS # (AUTO) 2.7 /CMM (1.8-8.9); NEUTROPHILS % (AUTO) 51.4 % (43.0-81.0); PLATELET COUNT (AUTO) 200 /CMM (150-450); RED BLOOD CELL COUNT(AUTO) 5.07 MIL/uL (4.5-6.0); WHITE BLOOD COUNT (AUTO) 5.3 K/uL (4.3-11.0)
--- NOTE | 2019-10-20 03:18 | NUR ---
CELL CHANGER AT BEDSIDE FOR BLOOD DRAW
[2019-10-20 03:21] LABS: CALCIUM, SERUM 8.6 mg/dL (8.5-10.1); CARBON DIOXIDE 22 mmol/L (21-32); CHLORIDE 107 mmol/L (98-107); CHOLESTEROL 114 mg/dL (<200); CREATININE 1.1 mg/dL (0.6-1.3); GLUCOSE 118 mg/dL (74-106); HDL CHOLESTEROL 34 mg/dL (40-60); LDL 57 mg/dL (0-99); SODIUM SERUM 141 mmol/L (136-145); TRIGLYCERIDES 148 mg/dL (30-150); UREA NITROGEN, BLOOD 12 mg/dL (7-18)
[2019-10-20 03:29] LABS: ALANINE AMINOTRANSFERASE 25 U/L (12-78); ALBUMIN 3.8 g/dL (3.4-5.0); ALKALINE PHOSPHATASE 61 U/L (46-116); ASPARTATE AMINOTRANSFERASE 15 U/L (15-37); BILIRUBIN,DIRECT 0.2 mg/dL (0.0-0.2); BILIRUBIN,TOTAL 0.5 mg/dL (0.2-1.0); TOTAL PROTEIN, SERUM 6.6 g/dL (6.4-8.2)
--- NOTE | 2019-10-20 05:08 | NUR ---
PT IS AMBULATED TO THE RESTROOM WITH A STEADY GAIT.
--- NOTE | 2019-10-20 06:51 | NUR ---
PT ACCEPTED TO [facility] BY DR RANDALL. BED 212-B. # FOR REPORT [phone]
[2019-10-20] MEDS ORDERED: ASPIRIN EC 325 MG TABLET.DR PO ONE (07:00)
[2019-10-20] MEDS ORDERED: ASPIRIN 325 MG TABLET PO ONE (07:00)
[2019-10-20] MEDS ORDERED: ASPIRIN 325 MG TABLET ONE (07:00)
--- NOTE | 2019-10-20 07:04 | NUR ---
CALLED FOR REPORT, DOUG SAID TO CALL BACK. Addendum: 10/20/19 at 0711 by JUAN DOUG SAID THEY ARE GIVING REPORT RIGHT NOW, CALL BACK LATER
--- NOTE | 2019-10-20 07:30 | NUR ---
received a call from [facility] (james) patient is going to [facility] ETA 8:15am [facility] ambulance.
--- NOTE | 2019-10-20 07:43 | NUR ---
REPORT GIVEN TO CALI KOCH OF [facility] FOR NADIYA.
--- NOTE | 2019-10-20 07:49 | NUR ---
REPORT GIVEN TO SOCORRO KOCH FOR NADIYA.
[2019-10-20] MEDS ORDERED: BENAZEPRIL HCL 10 MG TABLET PO ONE (08:00)
[2019-10-20] MEDS ORDERED: METOPROLOL SUCCINATE 25 MG TAB.SR.24H PO SCH (08:00)
[2019-10-20] MEDS ORDERED: BENAZEPRIL HCL 10 MG TABLET ONE (08:05)
[2019-10-20] MEDS ORDERED: METOPROLOL TARTRATE 25 MG TABLET ONE (08:05)
--- NOTE | 2019-10-20 08:14 | NUR ---
EMT AT BEDSIDE TO TRANSPORT PATIENT TO [facility]
--- NOTE | 2019-10-20 08:14 | NUR ---
Patient discharged to home in stable condition. Written and verbal after care instructions given. Patient verbalizes understanding of instruction.
[2019-10-20 08:16] VITALS: BP 166/83
== END 2019-10-20 08:17 | disposition short-term general hospital (02) ==
LOC: ER 02:14
DX: E87.8 Other disorders of electrolyte and fluid balance, not elsewhere classified (principal); I10 Essential (primary) hypertension; Z98.890 Other specified postprocedural states; Z88.0 Allergy status to penicillin; Z88.8 Allergy status to other drugs, medicaments and biological substances; Z60.2 Problems related to living alone; Z79.84 Long term (current) use of oral hypoglycemic drugs; Z79.899 Other long term (current) drug therapy; Z86.73 Personal history of transient ischemic attack (TIA), and cerebral infarction without residual deficits
CPT/HCPCS: 36415; 70450; 70496; 70498; 71045; 80048; 80061; 80076; 84484; 85025; 85730; 87081; 93005; 99285; Q9967

== ENCOUNTER 2019-12-03 01:39 | Emergency (ER) | payer MEDICARE ==
[~2019-12-03] VITALS: Ht 175.3 cm; Wt 85.7 kg
--- NOTE | 2019-12-03 01:40 | NUR ---
PT AAOX4. [id number] FROM HOME FOR C/O RLQ ABD PAIN 05/03, DIARRHEA "WATERY." RR EVEN AND UNLABORED. SKIN WARM AND INTACT. PLACED ON MONITOR AND PULSE OX. VSS. NO ACUTE DISTRESS NOTED.
--- NOTE | 2019-12-03 01:51 | NUR ---
DR BAKER AT BEDSIDE
[2019-12-03] MEDS ORDERED: ONDANSETRON HCL/PF 4 MG/2 ML VIAL ONE (01:58)
[2019-12-03] MEDS ORDERED: DIPHENOXYLATE HCL/ATROP SULF 1 UDTAB TABLET ONE (01:58)
[2019-12-03] MEDS ORDERED: IV NS 0.9% 1,000 ML BAG IV ONE (02:00)
[2019-12-03] MEDS ORDERED: ONDANSETRON HCL/PF 4 MG/2 ML VIAL IVP ONE (02:00)
[2019-12-03] MEDS ORDERED: DIPHENOXYLATE HCL/ATROP SULF 1 UDTAB TABLET PO ONE (02:00)
--- NOTE | 2019-12-03 02:07 | NUR ---
AWAITING URINE SAMPLE.
[2019-12-03 02:12] LABS: BASOPHILS % (AUTO) 0.5 % (0.0-2.0); EOSINOPHILS % (AUTO) 1.3 % (0.0-6.0); HEMATOCRIT 44 % (39-51); HEMOGLOBIN 14.7 g/dL (13.5-17.5); LYMPHOCYTES # (AUTO) 1.9 /CMM (0.8-4.8); LYMPHOCYTES % (AUTO) 28.7 % (20.0-44.0); MEAN CORPUSCULAR HGB CONC 33 g/dl (31.0-36.0); MEAN CORPUSCULAR VOLUME 88 fL (80-96); MONOCYTES # (AUTO) 0.7 /CMM (0.1-1.30); MONOCYTES % (AUTO) 10.2 % (2.0-12.0); NEUTROPHILS % (AUTO) 59.3 % (43.0-81.0); PLATELET COUNT (AUTO) 169 /CMM (150-450); RED BLOOD CELL COUNT(AUTO) 5.03 MIL/uL (4.5-6.0); WHITE BLOOD COUNT (AUTO) 6.7 K/uL (4.3-11.0)
--- NOTE | 2019-12-03 02:14 | NUR ---
BROUGHT TO CT
[2019-12-03 02:27] LABS: CALCIUM, SERUM 8.7 mg/dL (8.5-10.1); CARBON DIOXIDE 24 mmol/L (21-32); CHLORIDE 96 mmol/L (98-107); CREATININE 1.1 mg/dL (0.6-1.3); GLUCOSE 127 mg/dL (74-106); POTASSIUM 3.5 mmol/L (3.5-5.1); SODIUM SERUM 134 mmol/L (136-145); UREA NITROGEN, BLOOD 11 mg/dL (7-18)
[2019-12-03 02:33] LABS: ALANINE AMINOTRANSFERASE 16 U/L (12-78); ALBUMIN 3.7 g/dL (3.4-5.0); ALKALINE PHOSPHATASE 53 U/L (46-116); ASPARTATE AMINOTRANSFERASE 19 U/L (15-37); BILIRUBIN,DIRECT 0.2 mg/dL (0.0-0.2); BILIRUBIN,TOTAL 0.8 mg/dL (0.2-1.0); LIPASE 56 U/L (73-393); TOTAL PROTEIN, SERUM 6.8 g/dL (6.4-8.2)
--- NOTE | 2019-12-03 02:42 | NUR ---
URINE SENT TO LAB
[2019-12-03 02:48] LABS: APPEARANCE,URINE Clear (CLEAR); BILIRUBIN,URINE Negative (NEGATIVE); BLOOD, URINE Small Ery/uL (NEGATIVE); COLOR,URINE Yellow (YELLOW); KETONES,URINE 40 (NEGATIVE); LEUKOCYTE ESTERASE ,URINE Negative (NEGATIVE); NITRITE, URINE Negative (NEGATIVE); PROTEIN,URINE Trace mg/dl (NEGATIVE); UGLUCOSE Negative (NEGATIVE); UROBILINOGEN,URINE 0.2 EU/dL (0.2)
--- NOTE | 2019-12-03 03:21 | NUR ---
INF SENT TO LAB
[2019-12-03 03:40] LABS: BACTERIA,URINE Few /HPF (None Seen); SQUAMOUS EPITHELIAL CELL,UR Rare /HPF (None Seen); WBC,URINE 0-2 /HPF (0-3)
--- NOTE | 2019-12-03 03:49 | NUR ---
Patient is resting comfortably in bed. Easily aroused. VSS.
[2019-12-03] MEDS ORDERED: predniSONE 20 MG TABLET ONE (05:07)
--- NOTE | 2019-12-03 05:26 | NUR ---
Patient discharged to home in stable condition. Written and verbal after care instructions given. Patient verbalizes understanding of instruction and RX. Pt denies pain, RR even and unlabored. Pt ambulated with steady gait. IV removed. Catheter intact and site benign. Pressure and 4x4 applied to site. No bleeding noted.
[2019-12-03 05:27] VITALS: BP 138/85
[2019-12-03] MEDS ORDERED: predniSONE 50 MG TABLET PO ONE (05:30)
== END 2019-12-03 05:46 | disposition home or self-care (01) ==
LOC: ER 01:41
DX: R19.7 Diarrhea, unspecified (principal); J40 Bronchitis, not specified as acute or chronic; R10.84 Generalized abdominal pain; I10 Essential (primary) hypertension; E11.9 Type 2 diabetes mellitus without complications; E78.00 Pure hypercholesterolemia, unspecified; Z98.890 Other specified postprocedural states; Z86.73 Personal history of transient ischemic attack (TIA), and cerebral infarction without residual deficits; Z88.0 Allergy status to penicillin; Z88.8 Allergy status to other drugs, medicaments and biological substances; Z60.2 Problems related to living alone; Z79.82 Long term (current) use of aspirin; Z79.899 Other long term (current) drug therapy
CPT/HCPCS: 36415; 71250; 74176; 80048; 80076; 81001; 83690; 84484; 85025; 85730; 87804 ×2; 93005; 96361; 96374; 99285; J2405; J7030; J7512; 81000-TC

== ENCOUNTER 2020-11-21 07:51 | Emergency (ER) | payer MEDICARE ==
[~2020-11-21] VITALS: Ht 175.3 cm; Wt 79.4 kg
[~2020-11-21 07:51] MED LIST changes: +AMLO-212 PO; -AMLO5TAB9 PO
--- NOTE | 2020-11-21 07:51 | NUR ---
PT BIBRA 39 FROM HOME C/O SHARP L SIDED CHEST PAIN STARTED AT 2AM. PT AAOX4, NOT IN RESPIRATORY DISTRESS, HOOKED TO PLUMBER ASSISTANT, KEPT RESTED AND COMFORTABLE. WILL CONTINUE TO MONITOR.
--- NOTE | 2020-11-21 07:55 | NUR ---
AT BEDSIDE FOR EVAL.
--- NOTE | 2020-11-21 08:00 | NUR ---
PT IV LINE ESTABLISHED BLOOD DRAWN AND SENT TO LAB.
[2020-11-21 08:19] LABS: BASOPHILS % (AUTO) 0.4 % (0.0-2.0); EOSINOPHILS % (AUTO) 4.4 % (0.0-6.0); HEMATOCRIT 49 % (39-51); HEMOGLOBIN 16.4 g/dL (13.5-17.5); LYMPHOCYTES # (AUTO) 3.7 /CMM (0.8-4.8); LYMPHOCYTES % (AUTO) 47.3 % (20.0-44.0); MEAN CORPUSCULAR HGB CONC 33 g/dl (31.0-36.0); MEAN CORPUSCULAR VOLUME 90 fL (80-96); MONOCYTES # (AUTO) 0.7 /CMM (0.1-1.30); MONOCYTES % (AUTO) 8.5 % (2.0-12.0); NEUTROPHILS # (AUTO) 3.1 /CMM (1.8-8.9); NEUTROPHILS % (AUTO) 39.4 % (43.0-81.0); PLATELET COUNT (AUTO) 221 /CMM (150-450); RED BLOOD CELL COUNT(AUTO) 5.45 MIL/uL (4.5-6.0); WHITE BLOOD COUNT (AUTO) 7.8 K/uL (4.3-11.0)
--- NOTE | 2020-11-21 08:21 | NUR ---
GIMP TACKER AT BEDSIDE FOR EVAL.
[2020-11-21] MEDS ORDERED: NITROGLYCERIN 0.4 MG/TAB BOTTLE ONE (08:26)
[2020-11-21] MEDS ORDERED: ASPIRIN 81 MG TAB.CHEW ONE (08:27)
[2020-11-21] MEDS ORDERED: NITROGLYCERIN 0.4 MG/TAB BOTTLE SL ONE (08:30)
[2020-11-21] MEDS ORDERED: ASPIRIN 81 MG TAB.CHEW PO ONE (08:30)
[2020-11-21 08:45] LABS: ALANINE AMINOTRANSFERASE 30 U/L (12-78); ALBUMIN 4.3 g/dL (3.4-5.0); ALKALINE PHOSPHATASE 59 U/L (46-116); ASPARTATE AMINOTRANSFERASE 19 U/L (15-37); BILIRUBIN,DIRECT 0.3 mg/dL (0.0-0.2); BILIRUBIN,TOTAL 1.1 mg/dL (0.2-1.0); CALCIUM, SERUM 9.7 mg/dL (8.5-10.1); CARBON DIOXIDE 29 mmol/L (21-32); CHLORIDE 100 mmol/L (98-107); CREATININE 1.3 mg/dL (0.6-1.3); GLUCOSE 124 mg/dL (74-106); POTASSIUM 3.7 mmol/L (3.5-5.1); SODIUM SERUM 141 mmol/L (136-145); TOTAL PROTEIN, SERUM 7.7 g/dL (6.4-8.2); UREA NITROGEN, BLOOD 15 mg/dL (7-18)
[2020-11-21] MEDS ORDERED: LABE100T5 PO (09:35)
[2020-11-21] MEDS ORDERED: ASPI-1169 PO (09:35)
--- NOTE | 2020-11-21 10:33 | NUR ---
SPOKED TO GALEN HECK CM WILL CALL BACK FOR TROPONIN RESULT. [phone]
--- NOTE | 2020-11-21 11:37 | NUR ---
PT IS ACCEPTED BY AT [facility]. ROOM [id number] [phone]
[2020-11-21] MEDS ORDERED: AMLODIPINE BESYLATE 5 MG TABLET ONE (11:54)
[2020-11-21 11:56] VITALS: BP 188/91
[2020-11-21] MEDS ORDERED: AMLODIPINE BESYLATE 5 MG TABLET PO ONE (12:00)
--- NOTE | 2020-11-21 12:02 | NUR ---
REPORT GIVEN TO AUGUST HEIN OF [facility] FOR [facility].
--- NOTE | 2020-11-21 12:36 | NUR ---
REPORT GIVEN TO EMT FOR ACLS TRANSPORT GOING TO [facility] FOR NADIYA.
== END 2020-11-21 12:39 | disposition short-term general hospital (02) ==
LOC: ER 07:54
DX: I10 Essential (primary) hypertension (principal); R07.9 Chest pain, unspecified; Z86.73 Personal history of transient ischemic attack (TIA), and cerebral infarction without residual deficits; I65.29 Occlusion and stenosis of unspecified carotid artery; Z88.0 Allergy status to penicillin; Z88.8 Allergy status to other drugs, medicaments and biological substances; Z79.899 Other long term (current) drug therapy; Z79.82 Long term (current) use of aspirin; Z20.822 Contact with and (suspected) exposure to COVID-19
CPT/HCPCS: 36415; 71045-TC; 80048-TC; 80076-TC; 84484-TC; 85025-TC; C9803

== ENCOUNTER 2021-06-13 13:22 | Emergency (ER) | payer MEDICARE ==
[~2021-06-13] VITALS: Ht 175.3 cm; Wt 82.6 kg
[~2021-06-13 13:22] MED LIST changes: +ASPI-1169 PO; -ASPI-605 PO; -CLOP75TA15 PO; -HYDR-4076 PO; +LABE100T5 PO; -METF-440 PO
--- NOTE | 2021-06-13 13:22 | NUR ---
PT BIBRA FROM HOME C/O NECK NUMBNESS STARTED AROUND 12NOON AND "IM HAVING HARD TIME PUTTING THE WORDS OUT" PT IS AAOX4, NOT IN RESPIRATORY DISTRESS, HOOKED TO CUSTOMER ENGAGEMENT ANALYST, KEPT RESTED AND COMFORTABLE. WILL CONTINUE TO MONITOR.
--- NOTE | 2021-06-13 13:35 | NUR ---
SEEN AND EXAMINED BY .
--- NOTE | 2021-06-13 13:45 | NUR ---
IV LINE ESTABLISHED BLOOD DRAWN AND SENT TO LAB.
[2021-06-13 13:51] LABS: BASOPHILS # (AUTO) 0.1 K/uL (0.0-0.2); BASOPHILS % (AUTO) 0.8 % (0.0-2.0); EOSINOPHILS % (AUTO) 4.9 % (0.0-6.0); HEMATOCRIT 45 % (39-51); HEMOGLOBIN 14.8 g/dL (13.5-17.5); LYMPHOCYTES # (AUTO) 3.3 K/uL (0.8-4.8); LYMPHOCYTES % (AUTO) 45.2 % (20.0-44.0); MEAN CORPUSCULAR HGB CONC 33 g/dl (31.0-36.0); MEAN CORPUSCULAR VOLUME 89 fL (80-96); MONOCYTES # (AUTO) 0.7 K/uL (0.1-1.30); MONOCYTES % (AUTO) 8.9 % (2.0-12.0); NEUTROPHILS # (AUTO) 2.9 K/uL (1.8-8.9); NEUTROPHILS % (AUTO) 40.2 % (43.0-81.0); PLATELET COUNT (AUTO) 260 K/uL (150-450); RED BLOOD CELL COUNT(AUTO) 5.01 MIL/uL (4.5-6.0); WHITE BLOOD COUNT (AUTO) 7.3 K/uL (4.3-11.0)
[2021-06-13 13:59] LABS: CALCIUM, SERUM 8.7 mg/dL (8.5-10.1); CARBON DIOXIDE 25 mmol/L (21-32); CHLORIDE 104 mmol/L (98-107); CREATININE 1.2 mg/dL (0.6-1.3); GLUCOSE 113 mg/dL (74-106); POTASSIUM 3.9 mmol/L (3.5-5.1); SODIUM SERUM 141 mmol/L (136-145); UREA NITROGEN, BLOOD 12 mg/dL (7-18)
[2021-06-13 14:05] LABS: ALANINE AMINOTRANSFERASE 24 U/L (12-78); ALBUMIN 4.2 g/dL (3.4-5.0); ALKALINE PHOSPHATASE 63 U/L (46-116); ASPARTATE AMINOTRANSFERASE 17 U/L (15-37); BILIRUBIN,DIRECT 0.1 mg/dL (0.0-0.2); BILIRUBIN,TOTAL 0.5 mg/dL (0.2-1.0); TOTAL PROTEIN, SERUM 7.4 g/dL (6.4-8.2)
[2021-06-13] MEDS ORDERED: hydrALAZINE HCL IV 20 MG VIAL ONE (14:27)
[2021-06-13] MEDS ORDERED: hydrALAZINE HCL IV 20 MG VIAL IV ONE (14:30)
[2021-06-13] MEDS ORDERED: IV NS 0.9% 250 ML IV ONE (15:04)
[2021-06-13] MEDS ORDERED: IOHEXOL-350 100 ML VIAL IV ONE (15:04)
--- NOTE | 2021-06-13 15:21 | NUR ---
ANTHONY DIVING JUDGE CALLED REQUESTING COVID RESULT AND CLINICALS. SVEN CONTACT: [phone].
--- NOTE | 2021-06-13 15:57 | NUR ---
PT IS BACK FROM THE MRI.
--- NOTE | 2021-06-13 16:59 | NUR ---
FAXED UPDATED CLINICALS AND NEGATIVE COVID RESULT TO KONRAD FROM [facility].
[2021-06-13 17:20] LABS: CHOLESTEROL 111 mg/dL (<200); HDL CHOLESTEROL 33 mg/dL (40-60); LDL 44 mg/dL (0-99); TRIGLYCERIDES 249 mg/dL (30-150)
--- NOTE | 2021-06-13 17:38 | NUR ---
CALLED TO FOLLOW UP WITH KON[facility] REGARDING ADMISSION TO [facility]. NO UPDATES, WILL CALL US BACK AFTER CALLING [facility].
--- NOTE | 2021-06-13 18:35 | NUR ---
CALLED SVEN DRY PLASTERER HELPER FOR [facility]. CALLED [facility] TO SEE ABOUT BED STATUS BUT THEY WILL GIVE BED INFO AFTER SHFT CHANGE. WILL CALL US BACK WHEN SHE HAS BED INFORMATION.
--- NOTE | 2021-06-13 18:41 | NUR ---
TRANSFER INFO RECIEVED A CALL FROM SVEN ALCALA FROM [facility]. PT ACCEPTED TO [facility] RM 210-A UNDER THE CARE OF DR. PRO. NUMBER FOR REPORT [phone]. AMBULANCE ETA IS WITH [facility].
--- NOTE | 2021-06-13 18:59 | NUR ---
REPORT GIVEN TO AUGUST ESQUIVEL OF [facility].
[2021-06-13 19:10] VITALS: BP 158/83
--- NOTE | 2021-06-13 20:19 | NUR ---
PATIENT PICKED UP BY AMBULANCE TO TRANSFER TO [facility]. PATIENT FEELS MUCH BETTER RIGHT NOW. PATIENT LEFT VITAL SIGNS UPDATED. Patient discharged to home in condition. Written and verbal after care instructions given. Patient verbalizes understanding of instruction.
== END 2021-06-13 20:27 | disposition short-term general hospital (02) ==
LOC: ER 13:24
DX: G45.9 Transient cerebral ischemic attack, unspecified (principal); Z20.822 Contact with and (suspected) exposure to COVID-19; Z88.8 Allergy status to other drugs, medicaments and biological substances; Z88.0 Allergy status to penicillin; Z91.013 Allergy to seafood; R73.03 Prediabetes; I10 Essential (primary) hypertension; Z95.820 Peripheral vascular angioplasty status with implants and grafts; Z79.82 Long term (current) use of aspirin; Z79.899 Other long term (current) drug therapy; Z86.79 Personal history of other diseases of the circulatory system
CPT/HCPCS: 36415; 70450; 70551; 71045; 80048; 80061; 80076; 84484; 85025; 85730; 87426; 93005; 96374; 99291; J0360; J7050; Q9967; C9803

== ENCOUNTER 2021-06-15 01:00 | Emergency (ER) | payer MEDICARE ==
[~2021-06-15] VITALS: Ht 175.3 cm; Wt 80.3 kg
--- NOTE | 2021-06-15 01:37 | NUR ---
BIB EMS COMPLAINING OF PALPITATIONS FOR A FEW HOURS. REPORTS HVAING BEEN DISCHARGED FROM [facility] FOR TIA AT 1900 AND REPORTS HAVING PERSISTENT TACHYCARDIA AND PALPIATIONS. NO ASSOSICATED C/P, NASUEA, OR VOMITTING. PATIENT PLACED ON MONITOR HR 95. RESPIRATIONS EVEN AND UNLABORED. 18G STARTED IN [facility] LABS DRAWN AND SENT TO LAB. WAS AT BEDSIDE FOR EVAL.
--- NOTE | 2021-06-15 01:39 | NUR ---
EMT AT BEDSIDE FOR EKG
[2021-06-15 01:42] LABS: BASOPHILS # (AUTO) 0.1 K/uL (0.0-0.2); HEMOGLOBIN 14.6 g/dL (13.5-17.5)
[2021-06-15 01:46] LABS: BASOPHILS % (AUTO) 0.6 % (0.0-2.0); EOSINOPHILS % (AUTO) 3.9 % (0.0-6.0); HEMATOCRIT 44 % (39-51); LYMPHOCYTES % (AUTO) 35.7 % (20.0-44.0); MEAN CORPUSCULAR HGB CONC 33 g/dl (31.0-36.0); MEAN CORPUSCULAR VOLUME 89 fL (80-96); MONOCYTES # (AUTO) 0.8 K/uL (0.1-1.30); MONOCYTES % (AUTO) 9.5 % (2.0-12.0); NEUTROPHILS # (AUTO) 4.2 K/uL (1.8-8.9); NEUTROPHILS % (AUTO) 50.3 % (43.0-81.0); PLATELET COUNT (AUTO) 283 K/uL (150-450); RED BLOOD CELL COUNT(AUTO) 4.97 MIL/uL (4.5-6.0); WHITE BLOOD COUNT (AUTO) 8.3 K/uL (4.3-11.0)
--- NOTE | 2021-06-15 01:47 | NUR ---
XRAY AT BEDSIDE
[2021-06-15 01:51] LABS: CALCIUM, SERUM 9.1 mg/dL (8.5-10.1); CARBON DIOXIDE 24 mmol/L (21-32); CHLORIDE 98 mmol/L (98-107); CREATININE 1.4 mg/dL (0.6-1.3); GLUCOSE 135 mg/dL (74-106); POTASSIUM 3.3 mmol/L (3.5-5.1); SODIUM SERUM 136 mmol/L (136-145); UREA NITROGEN, BLOOD 17 mg/dL (7-18)
[2021-06-15] MEDS ORDERED: POTASSIUM CHLORIDE 20 MEQ TAB.PRT.SR PO ONE ×2 (02:45→03:00)
[2021-06-15] MEDS ORDERED: POTASSIUM CHLORIDE 10 MEQ TABLET.SA ONE (02:46)
--- NOTE | 2021-06-15 03:01 | NUR ---
Patient discharged to home in stable condition. Written and verbal after care instructions given. Patient verbalizes understanding of instruction.
[2021-06-15 03:02] VITALS: BP 126/66
== END 2021-06-15 03:03 | disposition home or self-care (01) ==
LOC: ER 01:04
DX: R00.2 Palpitations (principal); E87.6 Hypokalemia; I10 Essential (primary) hypertension; Z98.890 Other specified postprocedural states; Z86.73 Personal history of transient ischemic attack (TIA), and cerebral infarction without residual deficits; Z88.0 Allergy status to penicillin; Z88.8 Allergy status to other drugs, medicaments and biological substances; Z60.2 Problems related to living alone; Z79.899 Other long term (current) drug therapy; Z79.82 Long term (current) use of aspirin
CPT/HCPCS: 36415; 71045-TC; 80048-TC; 83735-TC; 83880; 84484-TC; 85025-TC

== ENCOUNTER 2021-10-29 09:38 | Inpatient (IN) | payer MEDICARE ==
[~2021-10-29] VITALS: Ht 167.6 cm; Wt 82.1 kg
[2021-10-29 11:04] LABS: BASOPHILS % (AUTO) 0.4 % (0.0-2.0); EOSINOPHILS % (AUTO) 4.9 % (0.0-6.0); HEMATOCRIT 44 % (39-51); HEMOGLOBIN 14.9 g/dL (13.5-17.5); LYMPHOCYTES # (AUTO) 4.6 K/uL (0.8-4.8); LYMPHOCYTES % (AUTO) 53.2 % (20.0-44.0); MEAN CORPUSCULAR HGB CONC 34 g/dl (31.0-36.0); MEAN CORPUSCULAR VOLUME 89 fL (80-96); MONOCYTES # (AUTO) 0.8 K/uL (0.1-1.30); MONOCYTES % (AUTO) 9.2 % (2.0-12.0); NEUTROPHILS # (AUTO) 2.8 K/uL (1.8-8.9); NEUTROPHILS % (AUTO) 32.3 % (43.0-81.0); PLATELET COUNT (AUTO) 250 K/uL (150-450); RED BLOOD CELL COUNT(AUTO) 4.97 MIL/uL (4.5-6.0); WHITE BLOOD COUNT (AUTO) 8.7 K/uL (4.3-11.0)
[2021-10-29] MEDS ORDERED: CLOP75TA15 PO (11:11)
[2021-10-29 11:36] LABS: CALCIUM, SERUM 9.5 mg/dL (8.5-10.1); CARBON DIOXIDE 28 mmol/L (21-32); CHLORIDE 101 mmol/L (98-107); CREATININE 1.2 mg/dL (0.6-1.3); GLUCOSE 185 mg/dL (74-106); POTASSIUM 3.9 mmol/L (3.5-5.1); SODIUM SERUM 138 mmol/L (136-145); UREA NITROGEN, BLOOD 16 mg/dL (7-18)
[2021-10-29] MEDS ORDERED: ASPIRIN 325 MG TABLET PO ONE (12:30)
[2021-10-29] MEDS ORDERED: LABETALOL HCL IV 100MG VIAL IV ONE (12:30)
[2021-10-29] MEDS ORDERED: LABETALOL HCL IV 100MG VIAL ONE (12:38)
[2021-10-29] MEDS ORDERED: ASPIRIN 325 MG TABLET ONE (12:38)
[2021-10-29] MEDS ORDERED: INSULIN REGULAR, HUMAN 100 UNIT/ML 3 ML VIAL SQ PRN (15:30)
[2021-10-29] MEDS ORDERED: *INSULIN REGULAR(HUMULIN R)HUM 100 UNIT/ML VIAL SQ PRN (15:30)
[2021-10-29] MEDS: CLOPIDOGREL BISULFATE 75 MG TABLET PO SCH (15:30)
[2021-10-29] MEDS ORDERED: ZOLPIDEM TARTRATE 5 MG TABLET PO PRN (15:30)
[2021-10-29] MEDS ORDERED: DEXTROSE 50%-WATER 50 ML DISP.SYRIN IV PRN (15:30)
[2021-10-29] MEDS: AMLODIPINE BESYLATE 5 MG TABLET PO SCH (15:30)
[2021-10-29] MEDS ORDERED: AMLODIPINE BESYLATE 5 MG TABLET ONE (15:44)
[2021-10-29] MEDS ORDERED: CLOPIDOGREL BISULFATE 75 MG TABLET ONE (15:44)
[2021-10-29] MEDS: BLOOD SUGAR DIAGNOSTIC 1 EACH STRIP VI SCH ×2 (16:54→22:00)
[2021-10-29] MEDS ORDERED: Medication Not On Formulary EA (Benazepril Hcl 40 MG) PO SCH (17:00)
[2021-10-29] MEDS: LISINOPRIL (20MG) 20 MG TABLET PO SCH (17:33)
[2021-10-29] MEDS: METOPROLOL TARTRATE 50 MG TABLET PO SCH (17:34)
[2021-10-29 18:00] VITALS: BP 169/85
[2021-10-29] MEDS: ACETAMINOPHEN 650 MG/20.3 ML UDC PO PRN (18:12)
[2021-10-29] MEDS ORDERED: KEY,NONCONTROL,TO KEEP IN PYXI 1 EA MC ONE (18:19)
[2021-10-29 20:00] VITALS: BP 160/81
[2021-10-30] VITALS: BP 164/89
[2021-10-30] MEDS: CLONIDINE HCL 0.1 MG TABLET PO PRN ×2 (00:23→06:37)
[2021-10-30] MEDS: ACETAMINOPHEN 650 MG/20.3 ML UDC PO PRN (05:20)
[2021-10-30 06:49] VITALS: BP 168/77
[2021-10-30] MEDS: BLOOD SUGAR DIAGNOSTIC 1 EACH STRIP VI SCH ×2 (07:12→11:26)
[2021-10-30 08:00] VITALS: BP 147/74
[2021-10-30] MEDS: CLOPIDOGREL BISULFATE 75 MG TABLET PO SCH (08:06)
[2021-10-30] MEDS: ENOXAPARIN SODIUM 40 MG/0.4 ML DISP.SYRIN SQ SCH ×2 (08:06→08:10)
[2021-10-30] MEDS: METOPROLOL TARTRATE 50 MG TABLET PO SCH (08:07)
[2021-10-30] MEDS: AMLODIPINE BESYLATE 5 MG TABLET PO SCH (08:07)
[2021-10-30] MEDS: LISINOPRIL (20MG) 20 MG TABLET PO SCH (08:07)
[2021-10-30 08:19] LABS: THYROID STIMULATING HORMONE 1.542 uIU/mL (0.358-3.74)
[2021-10-30] MEDS ORDERED: ASPIRIN 81 MG TAB.CHEW PO SCH (09:00)
[2021-10-30] MEDS ORDERED: Medication Not On Formulary EA (Rosuvastatin Calcium (Crestor) 10 MG) PO SCH (09:00)
[2021-10-30] MEDS ORDERED: INFLUENZA VACCINE 2021-22 0.5 ML DISP.SYRIN IM ONE (10:30)
[2021-10-30] MEDS ORDERED: AMLODIPINE BESYLATE 5 MG TABLET PO ONE (11:00)
[2021-10-30] MEDS ORDERED: AMLO-212 PO (11:05)
[2021-10-30 11:26] VITALS: BP 144/82
[2021-10-31] MEDS ORDERED: AMLODIPINE BESYLATE 5 MG TABLET PO SCH (09:00)
== END 2021-10-30 11:30 | disposition home or self-care (01) | DRG 69 ==
LOC: ER 09:49 → TELE 15:37
PROVIDERS: ADMIT Internal Medicine; ATTEND Internal Medicine
DX: G45.9 Transient cerebral ischemic attack, unspecified (principal); R47.01 Aphasia; I10 Essential (primary) hypertension; Z86.73 Personal history of transient ischemic attack (TIA), and cerebral infarction without residual deficits; E78.00 Pure hypercholesterolemia, unspecified; E78.5 Hyperlipidemia, unspecified; Z79.02 Long term (current) use of antithrombotics/antiplatelets; Z88.0 Allergy status to penicillin; Z88.8 Allergy status to other drugs, medicaments and biological substances; Z91.013 Allergy to seafood; Z79.82 Long term (current) use of aspirin; Z79.899 Other long term (current) drug therapy; Z98.890 Other specified postprocedural states; E11.36 Type 2 diabetes mellitus with diabetic cataract; Z90.49 Acquired absence of other specified parts of digestive tract; Z20.822 Contact with and (suspected) exposure to COVID-19
CPT/HCPCS: 36415; 70450-TC; 71045-TC; 80048-TC; 80061-TC; 82962-TC; 83880; 84443-TC; 84484-TC; 85025-TC; 85730-TC; 87081-TC; 93307-TC; 93880-TC; 97116-TC; 97530-TC; C9803; G0378; J1650; J1815; J3490; Q2036

== ENCOUNTER 2024-02-04 11:11 | Inpatient (IN) | payer MEDICARE ==
[2024-02-04] VITALS (38 sets, daily range): BP systolic 97–212; BP diastolic 42–116; TEMP 98.3–98.5; O2SAT 91–99
[~2024-02-04] VITALS: Ht 172.7 cm; Wt 84.4 kg
[~2024-02-04 11:11] MED LIST changes: -AMLO-212 PO; +CLOP75TA15 PO; +DIPH1TAB PO; +LABE100T15 PO; -LABE100T5 PO; -METO50TA16 PO; -TAMS0.4C34 PO
[2024-02-04 11:44] LABS: BASOPHILS # (AUTO) 0.1 K/uL (0.0-0.2); BASOPHILS % (AUTO) 0.9 % (0.0-2.0); EOSINOPHILS # (AUTO) 0.4 K/uL (0.0-0.7); HEMATOCRIT 49 % (39-51); HEMOGLOBIN 16.4 g/dL (13.5-17.5); LYMPHOCYTES # (AUTO) 2.9 K/uL (0.8-4.8); LYMPHOCYTES % (AUTO) 39.9 % (20.0-44.0); MEAN CORPUSCULAR HEMOGLOBIN 30 PG (26.0-33.0); MEAN CORPUSCULAR HGB CONC 34 g/dl (31.0-36.0); MEAN CORPUSCULAR VOLUME 89 fL (80-96); MONOCYTES # (AUTO) 0.6 K/uL (0.1-1.30); MONOCYTES % (AUTO) 8.6 % (2.0-12.0); NEUTROPHILS # (AUTO) 3.3 K/uL (1.8-8.9); NEUTROPHILS % (AUTO) 45.6 % (43.0-81.0); PLATELET COUNT (AUTO) 238 K/uL (150-450); RED BLOOD CELL COUNT(AUTO) 5.47 MIL/uL (4.5-6.0); WHITE BLOOD COUNT (AUTO) 7.3 K/uL (4.3-11.0)
[2024-02-04] MEDS ORDERED: IOHEXOL-350 100 ML VIAL IV ONE (11:58)
[2024-02-04] MEDS ORDERED: IV NS 0.9% 250 ML IV ONE (11:59)
[2024-02-04 12:00] LABS: ALANINE AMINOTRANSFERASE 40 U/L (12-78); ALBUMIN 4.1 g/dL (3.4-5.0); ALKALINE PHOSPHATASE 75 U/L (46-116); ASPARTATE AMINOTRANSFERASE 23 U/L (15-37); BILIRUBIN,DIRECT 0.2 mg/dL (0.0-0.2); BILIRUBIN,TOTAL 0.7 mg/dL (0.2-1.0); CALCIUM, SERUM 9.7 mg/dL (8.5-10.1); CARBON DIOXIDE 28 mmol/L (21-32); CHLORIDE 103 mmol/L (98-107); CREATININE 1.1 mg/dL (0.6-1.3); GLUCOSE 118 mg/dL (74-106); LIPASE 21 U/L (16-77); POTASSIUM 4.4 mmol/L (3.5-5.1); SODIUM SERUM 139 mmol/L (136-145); TOTAL PROTEIN, SERUM 7.8 g/dL (6.4-8.2); UREA NITROGEN, BLOOD 14 mg/dL (7-18)
[2024-02-04 12:02] LABS: LACTIC ACID 1.8 mmol/L (0.4-2.0)
[2024-02-04 12:05] LABS: APPEARANCE,URINE CLEAR (CLEAR); BILIRUBIN,URINE NEGATIVE (NEGATIVE); BLOOD, URINE 1+ Ery/uL (NEGATIVE); COLOR,URINE YELLOW (YELLOW); KETONES,URINE NEGATIVE (NEGATIVE); LEUKOCYTE ESTERASE ,URINE NEGATIVE (NEGATIVE); NITRITE, URINE NEGATIVE (NEGATIVE); PROTEIN,URINE 2+ mg/dl (NEGATIVE); UGLUCOSE NEGATIVE (NEGATIVE); UROBILINOGEN,URINE 0.2 EU/dL (0.2)
[2024-02-04 12:25] LABS: ADD URINE CULTURE NO; BACTERIA,URINE None seen /HPF (None Seen); SQUAMOUS EPITHELIAL CELL,UR Rare /HPF (None Seen); WBC,URINE 0-2 /HPF (0-3)
[2024-02-04] MEDS ORDERED: LABETALOL HCL IV 100MG VIAL ONE (13:26)
[2024-02-04] MEDS: LABETALOL 20 MG/4 ML VIAL IV ONE ×2 (13:30→14:05)
[2024-02-04] MEDS: ESMOLOL IV PRN (14:59)
[2024-02-04] MEDS: NS IV PRN (14:59)
[2024-02-04] MEDS ORDERED: HYDROCODONE/APAP 5/325MG TABLET PO PRN (15:00)
[2024-02-04] MEDS ORDERED: ACETAMINOPHEN 325 MG TABLET PO PRN (15:00)
[2024-02-04] MEDS ORDERED: LABETALOL HCL IV PRN (15:00)
[2024-02-04] MEDS ORDERED: D5W IV PRN (15:00)
[2024-02-04] MEDS ORDERED: ZOLPIDEM TARTRATE 5 MG TABLET PO PRN (15:00)
[2024-02-04] MEDS ORDERED: MAGNESIUM HYDROXIDE 30 ML UDC PO PRN (15:00)
[2024-02-04] MEDS ORDERED: Z GUARD REMEDY 4 OZ OINT TP PRN (15:00)
[2024-02-04 15:49] LABS: THYROID STIMULATING HORMONE 1.985 uIU/mL (0.358-3.74)
[2024-02-04] MEDS: METOPROLOL TARTRATE 50 MG TABLET PO SCH (17:30)
[2024-02-04] MEDS: SIMVASTATIN 20 MG TABLET PO SCH (21:09)
[2024-02-04] MEDS: ONDANSETRON HCL/PF 4 MG/2 ML VIAL IVP PRN (21:09)
[2024-02-04] MEDS: MAG HYDROX/AL HYDROX/SIMETH 30 ML UDC PO PRN (22:47)
[2024-02-05] VITALS (96 sets, daily range): BP systolic 87–179; BP diastolic 32–163; TEMP 98.2–98.7; O2SAT 86–98
[2024-02-05 04:53] LABS: BASOPHILS % (AUTO) 0.3 % (0.0-2.0); EOSINOPHILS # (AUTO) 0.1 K/uL (0.0-0.7); EOSINOPHILS % (AUTO) 1.1 % (0.0-6.0); HEMATOCRIT 42 % (39-51); HEMOGLOBIN 14.6 g/dL (13.5-17.5); LYMPHOCYTES # (AUTO) 1.6 K/uL (0.8-4.8); LYMPHOCYTES % (AUTO) 14.4 % (20.0-44.0); MEAN CORPUSCULAR HEMOGLOBIN 31 PG (26.0-33.0); MEAN CORPUSCULAR HGB CONC 35 g/dl (31.0-36.0); MEAN CORPUSCULAR VOLUME 89 fL (80-96); MONOCYTES # (AUTO) 0.7 K/uL (0.1-1.30); MONOCYTES % (AUTO) 6.8 % (2.0-12.0); NEUTROPHILS # (AUTO) 8.4 K/uL (1.8-8.9); NEUTROPHILS % (AUTO) 77.4 % (43.0-81.0); PLATELET COUNT (AUTO) 230 K/uL (150-450); RED BLOOD CELL COUNT(AUTO) 4.76 MIL/uL (4.5-6.0); RED CELL DISTRIBUTION WIDTH 13.7 % (11.5-15.0); WHITE BLOOD COUNT (AUTO) 10.8 K/uL (4.3-11.0)
[2024-02-05 05:14] LABS: CALCIUM, SERUM 8.8 mg/dL (8.5-10.1); CARBON DIOXIDE 20 mmol/L (21-32); CHLORIDE 100 mmol/L (98-107); CREATININE 1.3 mg/dL (0.6-1.3); GLUCOSE 176 mg/dL (74-106); MAGNESIUM 2.4 mg/dL (1.8-2.4); POTASSIUM 4.4 mmol/L (3.5-5.1); SODIUM SERUM 133 mmol/L (136-145); UREA NITROGEN, BLOOD 20 mg/dL (7-18)
[2024-02-05] MEDS: PANTOPRAZOLE 40 MG TABLET.DR PO SCH (07:57)
[2024-02-05] MEDS: VALSARTAN 80 MG TABLET PO SCH (09:32)
[2024-02-05] MEDS: ESMOLOL IVPB PREMIX 2,500 MG in PREMIX 1 EA IV PRN (10:21)
[2024-02-05] MEDS: METOPROLOL TARTRATE 50 MG TABLET PO SCH (21:12)
[2024-02-06] VITALS (55 sets, daily range): BP systolic 89–182; BP diastolic 42–119; TEMP 97.6–98.5; O2SAT 83–98
[2024-02-06] MEDS ORDERED: ESMOLOL IVPB PREMIX 2,500 MG in PREMIX 1 EA IV PRN (08:00)
[2024-02-06 08:46] LABS: CALCIUM, SERUM 8.3 mg/dL (8.5-10.1); CARBON DIOXIDE 17 mmol/L (21-32); CHLORIDE 99 mmol/L (98-107); CREATININE 1.4 mg/dL (0.6-1.3); GLUCOSE 135 mg/dL (74-106); POTASSIUM 4.6 mmol/L (3.5-5.1); SODIUM SERUM 128 mmol/L (136-145); UREA NITROGEN, BLOOD 27 mg/dL (7-18)
[2024-02-06 08:52] LABS: ALANINE AMINOTRANSFERASE 28 U/L (12-78); ALBUMIN 3.3 g/dL (3.4-5.0); ALKALINE PHOSPHATASE 56 U/L (46-116); ASPARTATE AMINOTRANSFERASE 88 U/L (15-37); BILIRUBIN,TOTAL 4.2 mg/dL (0.2-1.0); TOTAL PROTEIN, SERUM 6.3 g/dL (6.4-8.2)
[2024-02-06] MEDS: METOPROLOL SUCCINATE 50 MG TAB.SR.24H PO SCH (09:38)
[2024-02-06] MEDS ORDERED: hydrALAZINE HCL IV 20 MG VIAL IV PRN (11:30)
[2024-02-07] VITALS (12 sets, daily range): BP systolic 104–141; BP diastolic 49–85; TEMP 97.8–98.1; O2SAT 93–97
[2024-02-07] MEDS ORDERED: SIMV-46 PO (11:29)
[2024-02-07] MEDS ORDERED: VALS80TA31 PO (11:29)
[2024-02-07] MEDS ORDERED: METO50TA7 PO (11:29)
[2024-02-07] MEDS ORDERED: PANT40TA49 PO (11:29)
== END 2024-02-07 13:21 | disposition home or self-care (01) | DRG 304 ==
LOC: ER 11:23 → ICU 14:05
PROVIDERS: ATTEND Internal Medicine
DX: I16.0 Hypertensive urgency (principal); I71.33 Infrarenal abdominal aortic aneurysm, ruptured; E87.1 Hypo-osmolality and hyponatremia; N17.9 Acute kidney failure, unspecified; I10 Essential (primary) hypertension; K76.0 Fatty (change of) liver, not elsewhere classified; I69.920 Aphasia following unspecified cerebrovascular disease; I25.10 Atherosclerotic heart disease of native coronary artery without angina pectoris; E78.5 Hyperlipidemia, unspecified; I65.29 Occlusion and stenosis of unspecified carotid artery; Z88.0 Allergy status to penicillin; Z88.8 Allergy status to other drugs, medicaments and biological substances; Z91.013 Allergy to seafood; Z87.891 Personal history of nicotine dependence; Z79.02 Long term (current) use of antithrombotics/antiplatelets; Z79.82 Long term (current) use of aspirin; Z79.899 Other long term (current) drug therapy; Z90.49 Acquired absence of other specified parts of digestive tract; K57.30 Diverticulosis of large intestine without perforation or abscess without bleeding; N40.0 Benign prostatic hyperplasia without lower urinary tract symptoms; K40.90 Unilateral inguinal hernia, without obstruction or gangrene, not specified as recurrent; Z98.62 Peripheral vascular angioplasty status; R73.03 Prediabetes
CPT/HCPCS: 36415; 71045-TC; 80048-TC; 80053-TC; 80061-TC; 80076-TC; 81001; 83605-TC; 83690-TC; 83735-TC; 84100-TC; 84443-TC; 84484-TC; 85025-TC; 87040-TC; 87081-TC; 93307-TC; 93880-TC; 94762-TC; 94799-TC; A4216; A4223; G0378; J2405; J3490; J7050; J7060; Q9967

== ENCOUNTER 2024-02-21 13:05 | Inpatient (IN) | payer MEDICARE ==
[~2024-02-21] VITALS: Ht 170.2 cm; Wt 78.9 kg
[2024-02-21] VITALS (10 sets, daily range): BP systolic 121–181; BP diastolic 47–112; TEMP 98.2; O2SAT 92–96
[~2024-02-21 13:05] MED LIST changes: -BENA40TA8 PO; -DIPH1TAB PO; -LABE100T15 PO; +METO50TA7 PO; +PANT40TA49 PO; -ROSU10TA2 PO; +SIMV-46 PO; +VALS80TA31 PO
[2024-02-21 14:03] LABS: BASOPHILS # (AUTO) 0.1 K/uL (0.0-0.2); BASOPHILS % (AUTO) 0.8 % (0.0-2.0); EOSINOPHILS # (AUTO) 0.4 K/uL (0.0-0.7); EOSINOPHILS % (AUTO) 4.4 % (0.0-6.0); HEMATOCRIT 43 % (39-51); HEMOGLOBIN 14.6 g/dL (13.5-17.5); LYMPHOCYTES # (AUTO) 2.6 K/uL (0.8-4.8); LYMPHOCYTES % (AUTO) 32.1 % (20.0-44.0); MEAN CORPUSCULAR HEMOGLOBIN 30 PG (26.0-33.0); MEAN CORPUSCULAR HGB CONC 34 g/dl (31.0-36.0); MEAN CORPUSCULAR VOLUME 89 fL (80-96); MONOCYTES # (AUTO) 0.6 K/uL (0.1-1.30); MONOCYTES % (AUTO) 7.1 % (2.0-12.0); NEUTROPHILS # (AUTO) 4.5 K/uL (1.8-8.9); NEUTROPHILS % (AUTO) 55.6 % (43.0-81.0); PLATELET COUNT (AUTO) 312 K/uL (150-450); RED BLOOD CELL COUNT(AUTO) 4.81 MIL/uL (4.5-6.0); RED CELL DISTRIBUTION WIDTH 14.3 % (11.5-15.0); WHITE BLOOD COUNT (AUTO) 8.1 K/uL (4.3-11.0)
[2024-02-21 14:17] LABS: INR 0.99 (0.91-1.10); PARTIAL THROMBOPLASTIN TIME 27.9 SEC (24.3-34.3); PROTHROMBIN TIME 10.5 SECS (9.2-11.1)
[2024-02-21 14:23] LABS: ALANINE AMINOTRANSFERASE 29 U/L (12-78); ALBUMIN 3.8 g/dL (3.4-5.0); ALKALINE PHOSPHATASE 74 U/L (46-116); ASPARTATE AMINOTRANSFERASE 14 U/L (15-37); BILIRUBIN,DIRECT 0.2 mg/dL (0.0-0.2); BILIRUBIN,TOTAL 0.6 mg/dL (0.2-1.0); CALCIUM, SERUM 9.5 mg/dL (8.5-10.1); CARBON DIOXIDE 25 mmol/L (21-32); CHLORIDE 105 mmol/L (98-107); CREATININE 1.3 mg/dL (0.6-1.3); GLUCOSE 133 mg/dL (74-106); POTASSIUM 4.2 mmol/L (3.5-5.1); SODIUM SERUM 141 mmol/L (136-145); TOTAL PROTEIN, SERUM 7.5 g/dL (6.4-8.2); UREA NITROGEN, BLOOD 15 mg/dL (7-18)
[2024-02-21] MEDS ORDERED: MORPHINE SULFATE INJ 2 MG/ML DISP.SYRIN IV PRN (15:00)
[2024-02-21] MEDS ORDERED: ESMOLOL IVPB PREMIX 250 ML IV ONE (15:00)
[2024-02-21] MEDS ORDERED: hydrALAZINE HCL IV 20 MG VIAL IV ONE (15:00)
[2024-02-21] MEDS: ESMOLOL IVPB PREMIX 2,500 MG in PREMIX 1 EA IV PRN (15:31)
[2024-02-21] MEDS ORDERED: CT SWABBABLE VALVE TRANS SET 1 EA INFUS.SET MC ONE (15:35)
[2024-02-21] MEDS ORDERED: IOHEXOL-350 100 ML VIAL IV ONE ×2 (15:35→16:04)
[2024-02-21] MEDS ORDERED: IV NS 0.9% 250 ML IV ONE (15:35)
[2024-02-21] MEDS: ENOXAPARIN SODIUM 40 MG/0.4 ML DISP.SYRIN SQ SCH (16:00)
[2024-02-21] MEDS: SIMVASTATIN 20 MG TABLET PO SCH (22:17)
[2024-02-21] MEDS: ACETAMINOPHEN 325 MG TABLET PO PRN (22:57)
[2024-02-22] VITALS (72 sets, daily range): BP systolic 82–201; BP diastolic 35–129; TEMP 98–98.7; O2SAT 92–97
[2024-02-22 04:48] LABS: BASOPHILS # (AUTO) 0.1 K/uL (0.0-0.2); BASOPHILS % (AUTO) 1.1 % (0.0-2.0); EOSINOPHILS # (AUTO) 0.3 K/uL (0.0-0.7); EOSINOPHILS % (AUTO) 4.4 % (0.0-6.0); HEMATOCRIT 36 % (39-51); HEMOGLOBIN 12.5 g/dL (13.5-17.5); LYMPHOCYTES # (AUTO) 1.7 K/uL (0.8-4.8); LYMPHOCYTES % (AUTO) 25.2 % (20.0-44.0); MEAN CORPUSCULAR HEMOGLOBIN 30 PG (26.0-33.0); MEAN CORPUSCULAR HGB CONC 34 g/dl (31.0-36.0); MEAN CORPUSCULAR VOLUME 89 fL (80-96); MONOCYTES # (AUTO) 0.7 K/uL (0.1-1.30); MONOCYTES % (AUTO) 10.7 % (2.0-12.0); NEUTROPHILS # (AUTO) 4.1 K/uL (1.8-8.9); NEUTROPHILS % (AUTO) 58.6 % (43.0-81.0); PLATELET COUNT (AUTO) 261 K/uL (150-450); RED BLOOD CELL COUNT(AUTO) 4.11 MIL/uL (4.5-6.0); RED CELL DISTRIBUTION WIDTH 14.1 % (11.5-15.0); WHITE BLOOD COUNT (AUTO) 6.9 K/uL (4.3-11.0)
[2024-02-22 05:06] LABS: ALANINE AMINOTRANSFERASE 23 U/L (12-78); ALBUMIN 3.1 g/dL (3.4-5.0); ALKALINE PHOSPHATASE 56 U/L (46-116); ASPARTATE AMINOTRANSFERASE 23 U/L (15-37); BILIRUBIN,TOTAL 1.3 mg/dL (0.2-1.0); CALCIUM, SERUM 8.3 mg/dL (8.5-10.1); CARBON DIOXIDE 25 mmol/L (21-32); CHLORIDE 105 mmol/L (98-107); CREATININE 1.4 mg/dL (0.6-1.3); GLUCOSE 122 mg/dL (74-106); MAGNESIUM 2.1 mg/dL (1.8-2.4); PHOSPHORUS 2.7 mg/dL (2.5-4.9); POTASSIUM 3.8 mmol/L (3.5-5.1); SODIUM SERUM 137 mmol/L (136-145); TOTAL PROTEIN, SERUM 5.9 g/dL (6.4-8.2); UREA NITROGEN, BLOOD 14 mg/dL (7-18)
[2024-02-22] MEDS ORDERED: ESMOLOL IVPB PREMIX 2,500 MG in PREMIX 1 EA IV PRN (07:30)
[2024-02-22] MEDS: CLOPIDOGREL BISULFATE 75 MG TABLET PO SCH (08:04)
[2024-02-22] MEDS: ASPIRIN 81 MG TAB.CHEW PO SCH (08:04)
[2024-02-22] MEDS: ESMOLOL IVPB PREMIX 250 ML IV PRN (08:08)
[2024-02-22] MEDS: PANTOPRAZOLE 40 MG TABLET.DR PO SCH (08:54)
[2024-02-22] MEDS: METOPROLOL SUCCINATE 50 MG TAB.SR.24H PO SCH (08:56)
[2024-02-22] MEDS: hydrALAZINE HCL 50 MG TABLET PO SCH (08:56)
[2024-02-22] MEDS: VALSARTAN 80 MG TABLET PO SCH (08:57)
[2024-02-22] MEDS: NITROGLYCERIN 30 GM TUBE TP SCH (09:50)
[2024-02-22] MEDS: ONDANSETRON HCL/PF 4 MG/2 ML VIAL IVP PRN (13:44)
[2024-02-22 15:54] LABS: APPEARANCE,URINE CLEAR (CLEAR); BILIRUBIN,URINE NEGATIVE (NEGATIVE); BLOOD, URINE 3+ Ery/uL (NEGATIVE); COLOR,URINE YELLOW (YELLOW); KETONES,URINE NEGATIVE (NEGATIVE); LEUKOCYTE ESTERASE ,URINE NEGATIVE (NEGATIVE); NITRITE, URINE NEGATIVE (NEGATIVE); PH,URINE 6.5 (5.0-8.0); PROTEIN,URINE 2+ mg/dl (NEGATIVE); UGLUCOSE TRACE mg/dL (NEGATIVE); UROBILINOGEN,URINE 0.2 EU/dL (0.2)
[2024-02-22 16:01] LABS: CREATININE, URINE 88.7 MG/DL (30.0-125.0); URINE TOTAL PROTEIN 98.7 mg/dL (0-11.9)
[2024-02-22 16:37] LABS: ADD URINE CULTURE NO; BACTERIA,URINE None seen /HPF (None Seen); EOSINOPHIL,URINE None Seen; MUCUS,URINE Moderate /LPF (None Seen); SQUAMOUS EPITHELIAL CELL,UR None Seen /HPF (None Seen); WBC,URINE NONE SEEN /HPF (0-3)
[2024-02-23] VITALS (24 sets, daily range): BP systolic 78–139; BP diastolic 43–77; TEMP 97.9–98.4; O2SAT 91–98
[2024-02-23] MEDS: hydrALAZINE HCL 50 MG TABLET PO SCH (09:00)
[2024-02-23] MEDS: ISOSORBIDE DINITRATE (20MG) 20 MG TABLET PO SCH (09:00)
[2024-02-24] VITALS (7 sets, daily range): BP systolic 52–166; BP diastolic 28–75; TEMP 98–98.6; O2SAT 88–99
[2024-02-24] MEDS ORDERED: ISOS20TA8 PO (11:29)
[2024-02-24] MEDS: IV NS 0.9% 1,000 ML IV ONE (12:33)
[2024-02-24] MEDS: MAG HYDROX/AL HYDROX/SIMETH 30 ML UDC PO PRN (18:40)
[2024-02-25] VITALS: BP 160/74; TEMP 98.4; O2SAT 94
[2024-02-25 04:00] VITALS: BP 162/73; TEMP 98.4; O2SAT 95
[2024-02-25 08:00] VITALS: BP 195/94; TEMP 97.3; O2SAT 95
[2024-02-25 08:00] LABS: BASOPHILS % (AUTO) 0.3 % (0.0-2.0); EOSINOPHILS # (AUTO) 0.2 K/uL (0.0-0.7); EOSINOPHILS % (AUTO) 4.5 % (0.0-6.0); HEMATOCRIT 36 % (39-51); HEMOGLOBIN 12.2 g/dL (13.5-17.5); LYMPHOCYTES # (AUTO) 1.7 K/uL (0.8-4.8); LYMPHOCYTES % (AUTO) 30.5 % (20.0-44.0); MEAN CORPUSCULAR HEMOGLOBIN 30 PG (26.0-33.0); MEAN CORPUSCULAR HGB CONC 34 g/dl (31.0-36.0); MEAN CORPUSCULAR VOLUME 89 fL (80-96); MONOCYTES # (AUTO) 0.5 K/uL (0.1-1.30); NEUTROPHILS % (AUTO) 54.7 % (43.0-81.0); PLATELET COUNT (AUTO) 221 K/uL (150-450); RED BLOOD CELL COUNT(AUTO) 4.04 MIL/uL (4.5-6.0); RED CELL DISTRIBUTION WIDTH 14.7 % (11.5-15.0); WHITE BLOOD COUNT (AUTO) 5.5 K/uL (4.3-11.0)
[2024-02-25] MEDS: VALSARTAN 80 MG TABLET PO SCH (08:03)
[2024-02-25] MEDS: ISOSORBIDE DINITRATE (20MG) 20 MG TABLET PO SCH (08:04)
[2024-02-25 08:15] LABS: ALANINE AMINOTRANSFERASE 15 U/L (12-78); ALKALINE PHOSPHATASE 53 U/L (46-116); ASPARTATE AMINOTRANSFERASE 5 U/L (15-37); BILIRUBIN,TOTAL 0.7 mg/dL (0.2-1.0); CALCIUM, SERUM 8.3 mg/dL (8.5-10.1); CARBON DIOXIDE 24 mmol/L (21-32); CHLORIDE 107 mmol/L (98-107); CREATININE 1.5 mg/dL (0.6-1.3); GLUCOSE 117 mg/dL (74-106); MAGNESIUM 2.3 mg/dL (1.8-2.4); PHOSPHORUS 2.4 mg/dL (2.5-4.9); POTASSIUM 3.6 mmol/L (3.5-5.1); SODIUM SERUM 140 mmol/L (136-145); TOTAL PROTEIN, SERUM 6.2 g/dL (6.4-8.2); UREA NITROGEN, BLOOD 17 mg/dL (7-18)
[2024-02-25] MEDS ORDERED: LISINOPRIL (10MG) 10 MG TABLET PO SCH (09:00)
[2024-02-25] MEDS: ISOSORBIDE DINITRATE (20MG) 20 MG TABLET PO ONE (09:16)
[2024-02-25 12:00] VITALS: BP 106/59; TEMP 98.4; O2SAT 95
[2024-02-25] MEDS: K PHOS NEUTRAL 250 MG TABLET PO ONE (15:37)
[2024-02-25] MEDS: hydrALAZINE HCL 50 MG TABLET PO SCH (15:43)
[2024-02-25 16:00] VITALS: BP 129/78; TEMP 97.9; O2SAT 95
[2024-02-25] MEDS ORDERED: ISOSORBIDE DINITRATE (20MG) 20 MG TABLET PO SCH (17:00)
== END 2024-02-25 18:17 | disposition home or self-care (01) | DRG 304 ==
LOC: ER 13:07 → ICU 20:13 → TELE1 02-23 16:53
PROVIDERS: ADMIT Internal Medicine; ATTEND Internal Medicine
DX: I16.0 Hypertensive urgency (principal); I77.73 Dissection of renal artery; J98.11 Atelectasis; N17.9 Acute kidney failure, unspecified; I25.10 Atherosclerotic heart disease of native coronary artery without angina pectoris; K40.90 Unilateral inguinal hernia, without obstruction or gangrene, not specified as recurrent; I12.9 Hypertensive chronic kidney disease with stage 1 through stage 4 chronic kidney disease, or unspecified chronic kidney disease; E78.5 Hyperlipidemia, unspecified; Z86.73 Personal history of transient ischemic attack (TIA), and cerebral infarction without residual deficits; E11.22 Type 2 diabetes mellitus with diabetic chronic kidney disease; D64.9 Anemia, unspecified; Z98.62 Peripheral vascular angioplasty status; Z88.0 Allergy status to penicillin; Z91.09 Other allergy status, other than to drugs and biological substances; Z91.013 Allergy to seafood; Z79.02 Long term (current) use of antithrombotics/antiplatelets; Z79.82 Long term (current) use of aspirin; Z79.899 Other long term (current) drug therapy; M89.8X9 Other specified disorders of bone, unspecified site; K76.0 Fatty (change of) liver, not elsewhere classified; N40.0 Benign prostatic hyperplasia without lower urinary tract symptoms; K57.30 Diverticulosis of large intestine without perforation or abscess without bleeding; N18.9 Chronic kidney disease, unspecified; Z90.49 Acquired absence of other specified parts of digestive tract; I65.23 Occlusion and stenosis of bilateral carotid arteries
CPT/HCPCS: 36415; 70450-TC; 71045-TC; 80048-TC; 80053-TC; 80076-TC; 81001; 82570-TC; 82962-TC; 83735-TC; 83880; 84100-TC; 84300-TC; 84484-TC; 85025-TC; 85730-TC; 86850-TC; 97110-TC; 97112-TC; 97116-TC; 97530-TC; A4216; A4223; G0378; J1650; J2270; J2405; J3490; J7030; J7040; J7050; Q9967

== ENCOUNTER 2024-03-24 23:37 | Inpatient (IN) | payer MEDICARE ==
[~2024-03-24] VITALS: Ht 175.3 cm; Wt 81.2 kg
[~2024-03-24 23:37] MED LIST changes: +ISOS20TA8 PO
[2024-03-25] MEDS: IV NS 0.9% 1,000 ML BAG IV ONE (00:22)
[2024-03-25] MEDS: ONDANSETRON HCL/PF 4 MG/2 ML VIAL IVP ONE (00:22)
[2024-03-25] MEDS ORDERED: ONDANSETRON HCL/PF 4 MG/2 ML VIAL ONE (00:22)
[2024-03-25 00:25] LABS: BASOPHILS # (AUTO) 0.1 K/uL (0.0-0.2); EOSINOPHILS # (AUTO) 0.5 K/uL (0.0-0.7); EOSINOPHILS % (AUTO) 6.7 % (0.0-6.0); HEMATOCRIT 22 % (39-51); HEMOGLOBIN 7.2 g/dL (13.5-17.5); LYMPHOCYTES # (AUTO) 2.2 K/uL (0.8-4.8); MEAN CORPUSCULAR HEMOGLOBIN 29 PG (26.0-33.0); MEAN CORPUSCULAR HGB CONC 33 g/dl (31.0-36.0); MEAN CORPUSCULAR VOLUME 88 fL (80-96); MONOCYTES # (AUTO) 0.5 K/uL (0.1-1.30); MONOCYTES % (AUTO) 7.5 % (2.0-12.0); NEUTROPHILS % (AUTO) 54.8 % (43.0-81.0); PLATELET COUNT (AUTO) 346 K/uL (150-450); RED BLOOD CELL COUNT(AUTO) 2.52 MIL/uL (4.5-6.0); RED CELL DISTRIBUTION WIDTH 15.1 % (11.5-15.0); WHITE BLOOD COUNT (AUTO) 7.3 K/uL (4.3-11.0)
[2024-03-25 00:37] LABS: CALCIUM, SERUM 9.4 mg/dL (8.5-10.1); CARBON DIOXIDE 22 mmol/L (21-32); CHLORIDE 103 mmol/L (98-107); CREATININE 1.5 mg/dL (0.6-1.3); GLUCOSE 180 mg/dL (74-106); POTASSIUM 3.4 mmol/L (3.5-5.1); SODIUM SERUM 139 mmol/L (136-145); UREA NITROGEN, BLOOD 19 mg/dL (7-18)
[2024-03-25 00:42] LABS: ALANINE AMINOTRANSFERASE 20 U/L (12-78); ALBUMIN 3.4 g/dL (3.4-5.0); ALKALINE PHOSPHATASE 70 U/L (46-116); ASPARTATE AMINOTRANSFERASE 5 U/L (15-37); BILIRUBIN,DIRECT 0.1 mg/dL (0.0-0.2); BILIRUBIN,TOTAL 0.4 mg/dL (0.2-1.0); INR 1.01 (0.91-1.10); LIPASE 25 U/L (16-77); PARTIAL THROMBOPLASTIN TIME 23.6 SEC (24.3-34.3); PROTHROMBIN TIME 10.7 SECS (9.2-11.1); TOTAL PROTEIN, SERUM 6.5 g/dL (6.4-8.2)
[2024-03-25] MEDS ORDERED: methylPREDNISolone SOD SUCC 40 MG/ML VIAL ONE (00:57)
[2024-03-25] MEDS ORDERED: FAMOTIDINE/PF INJ 20 MG/2 ML VIAL IV ONE (00:57)
[2024-03-25] MEDS ORDERED: diphenhydrAMINE HCL 50 MG/ML VIAL ONE (00:57)
[2024-03-25] MEDS: diphenhydrAMINE HCL 50 MG/ML VIAL IV ONE (00:59)
[2024-03-25] MEDS: methylPREDNISolone SOD SUCC 40 MG/ML VIAL IV ONE (00:59)
[2024-03-25] MEDS: FAMOTIDINE/PF INJ 20 MG/2 ML VIAL IV ONE (00:59)
[2024-03-25] MEDS ORDERED: METOCLOPRAMIDE HCL 10 MG/2 ML VIAL ONE (01:14)
[2024-03-25] MEDS: METOCLOPRAMIDE HCL 10 MG/2 ML VIAL IV ONE (01:30)
[2024-03-25] MEDS ORDERED: ENOXAPARIN SODIUM 80 MG/0.8 ML DISP.SYRIN SQ ONE (03:23)
[2024-03-25] MEDS: ENOXAPARIN SODIUM 80 MG/0.8 ML DISP.SYRIN SQ ONE (03:31)
[2024-03-25] MEDS ORDERED: MAG HYDROX/AL HYDROX/SIMETH 30 ML UDC PO PRN (04:00)
[2024-03-25] MEDS ORDERED: ONDANSETRON HCL/PF 4 MG/2 ML VIAL IVP PRN (04:00)
[2024-03-25] MEDS ORDERED: ZOLPIDEM TARTRATE 5 MG TABLET PO PRN (04:00)
[2024-03-25] MEDS ORDERED: Z GUARD REMEDY 4 OZ OINT TP PRN (04:00)
[2024-03-25] MEDS ORDERED: NITROGLYCERIN 0.4 MG/TAB BOTTLE SL PRN (04:00)
[2024-03-25] MEDS ORDERED: MAGNESIUM HYDROXIDE 30 ML UDC PO PRN (04:00)
[2024-03-25 04:15] VITALS: BP 145/72; TEMP 98.1; O2SAT 92
[2024-03-25 05:00] VITALS: BP 145/72; TEMP 98.1; O2SAT 92
[2024-03-25 07:12] LABS: BASOPHILS % (AUTO) 0.3 % (0.0-2.0); HEMATOCRIT 22 % (39-51); HEMOGLOBIN 7.4 g/dL (13.5-17.5); LYMPHOCYTES # (AUTO) 1.1 K/uL (0.8-4.8); MEAN CORPUSCULAR HEMOGLOBIN 29 PG (26.0-33.0); MEAN CORPUSCULAR HGB CONC 33 g/dl (31.0-36.0); MEAN CORPUSCULAR VOLUME 87 fL (80-96); MONOCYTES # (AUTO) 0.1 K/uL (0.1-1.30); NEUTROPHILS # (AUTO) 7.1 K/uL (1.8-8.9); NEUTROPHILS % (AUTO) 85.7 % (43.0-81.0); PLATELET COUNT (AUTO) 353 K/uL (150-450); RED BLOOD CELL COUNT(AUTO) 2.54 MIL/uL (4.5-6.0); RED CELL DISTRIBUTION WIDTH 15.5 % (11.5-15.0); WHITE BLOOD COUNT (AUTO) 8.3 K/uL (4.3-11.0)
[2024-03-25 07:30] VITALS: BP 148/73; TEMP 98.6; O2SAT 90
[2024-03-25] MEDS: PANTOPRAZOLE 40 MG TABLET.DR PO SCH (07:30)
[2024-03-25 07:50] VITALS: BP 152/75; TEMP 98.2; O2SAT 97
[2024-03-25 07:50] LABS: ALANINE AMINOTRANSFERASE 21 U/L (12-78); ALBUMIN 3.4 g/dL (3.4-5.0); ALKALINE PHOSPHATASE 62 U/L (46-116); ASPARTATE AMINOTRANSFERASE 27 U/L (15-37); BILIRUBIN,DIRECT 0.1 mg/dL (0.0-0.2); BILIRUBIN,TOTAL 0.4 mg/dL (0.2-1.0); CALCIUM, SERUM 9.3 mg/dL (8.5-10.1); CARBON DIOXIDE 24 mmol/L (21-32); CHLORIDE 106 mmol/L (98-107); CREATININE 1.3 mg/dL (0.6-1.3); GLUCOSE 164 mg/dL (74-106); MAGNESIUM 2.3 mg/dL (1.8-2.4); NT-PRO BNP 551 pg/mL (0-125); PHOSPHORUS 3.7 mg/dL (2.5-4.9); POTASSIUM 4.1 mmol/L (3.5-5.1); SODIUM SERUM 141 mmol/L (136-145); TOTAL PROTEIN, SERUM 6.5 g/dL (6.4-8.2); UREA NITROGEN, BLOOD 15 mg/dL (7-18)
[2024-03-25] MEDS: POTASSIUM CHLORIDE 20 MEQ TAB.PRT.SR PO SCH (10:07)
[2024-03-25] MEDS: ACETAMINOPHEN 325 MG TABLET PO PRN (11:35)
[2024-03-25 16:00] VITALS: BP 153/66; TEMP 98.4; O2SAT 97
[2024-03-25] MEDS: ASPIRIN EC 325 MG TABLET.DR PO SCH (16:33)
[2024-03-25] MEDS: METOPROLOL TARTRATE 50 MG TABLET PO SCH (16:34)
[2024-03-25] MEDS ORDERED: IOHEXOL-350 100 ML VIAL IV ONE (17:34)
[2024-03-25] MEDS ORDERED: IV NS 0.9% 250 ML IV ONE (17:34)
[2024-03-25 21:47] LABS: CREATININE, URINE 78.2 MG/DL (30.0-125.0); URINE TOTAL PROTEIN 7.8 mg/dL (0-11.9)
[2024-03-25 21:48] LABS: APPEARANCE,URINE CLEAR (CLEAR); BILIRUBIN,URINE NEGATIVE (NEGATIVE); BLOOD, URINE NEGATIVE Ery/uL (NEGATIVE); COLOR,URINE YELLOW (YELLOW); KETONES,URINE TRACE mg/dL (NEGATIVE); LEUKOCYTE ESTERASE ,URINE NEGATIVE (NEGATIVE); NITRITE, URINE NEGATIVE (NEGATIVE); PROTEIN,URINE NEGATIVE (NEGATIVE); UGLUCOSE NEGATIVE (NEGATIVE); UROBILINOGEN,URINE 0.2 EU/dL (0.2)
[2024-03-25 22:42] LABS: ADD URINE CULTURE NO; BACTERIA,URINE Rare /HPF (None Seen); EOSINOPHIL,URINE None Seen; RBC,URINE 0-2 /HPF (0-2); SQUAMOUS EPITHELIAL CELL,UR Few /HPF (None Seen); WBC,URINE 0-2 /HPF (0-3)
[2024-03-26 00:50] VITALS: BP 124/58; TEMP 98.2; O2SAT 95
[2024-03-26] MEDS: ENOXAPARIN SODIUM 40 MG/0.4 ML DISP.SYRIN SQ SCH (04:15)
[2024-03-26 07:30] VITALS: BP 158/67; TEMP 97.6; O2SAT 97
[2024-03-26 08:09] VITALS: BP 158/67
== END 2024-03-26 09:50 | disposition left against medical advice (07) | DRG 282 ==
LOC: ER 23:39 → TELE 03-25 03:38
DX: I21.4 Non-ST elevation (NSTEMI) myocardial infarction (principal); I16.0 Hypertensive urgency; I10 Essential (primary) hypertension; I25.10 Atherosclerotic heart disease of native coronary artery without angina pectoris; E87.6 Hypokalemia; Z95.828 Presence of other vascular implants and grafts; E78.5 Hyperlipidemia, unspecified; Z86.73 Personal history of transient ischemic attack (TIA), and cerebral infarction without residual deficits; Z88.0 Allergy status to penicillin; Z91.013 Allergy to seafood; Z88.8 Allergy status to other drugs, medicaments and biological substances; Z79.82 Long term (current) use of aspirin; Z79.02 Long term (current) use of antithrombotics/antiplatelets; Z79.899 Other long term (current) drug therapy; I65.23 Occlusion and stenosis of bilateral carotid arteries; Z86.79 Personal history of other diseases of the circulatory system; M89.8X9 Other specified disorders of bone, unspecified site; Z90.49 Acquired absence of other specified parts of digestive tract; D64.9 Anemia, unspecified; Z53.29 Procedure and treatment not carried out because of patient's decision for other reasons; R73.03 Prediabetes
CPT/HCPCS: 36415; 71045-TC; 80048-TC; 80076-TC; 81001; 82570-TC; 83690-TC; 83735-TC; 83880; 84100-TC; 84300-TC; 84443-TC; 84484-TC; 85025-TC; 85730-TC; G0378; J1200; J1650; J2405; J2765; J2919; J3490; J7030; J7050; Q9967

== ENCOUNTER 2024-05-25 02:57 | Inpatient (IN) | payer MEDICARE, OTHER ==
[~2024-05-25] VITALS: Ht 175.3 cm; Wt 76.2 kg
[~2024-05-25 02:57] MED LIST changes: -METO50TA7 PO
[2024-05-25] MEDS: IV NS 0.9% 250 ML BAG IV ONE (03:23)
[2024-05-25 03:27] LABS: BASOPHILS % (AUTO) 0.5 % (0.0-2.0); EOSINOPHILS # (AUTO) 0.5 K/uL (0.0-0.7); HEMATOCRIT 30 % (39-51); HEMOGLOBIN 9.1 g/dL (13.5-17.5); LYMPHOCYTES # (AUTO) 3.4 K/uL (0.8-4.8); LYMPHOCYTES % (AUTO) 42.7 % (20.0-44.0); MEAN CORPUSCULAR HEMOGLOBIN 21 PG (26.0-33.0); MEAN CORPUSCULAR HGB CONC 30 g/dl (31.0-36.0); MEAN CORPUSCULAR VOLUME 68 fL (80-96); MONOCYTES # (AUTO) 0.7 K/uL (0.1-1.30); MONOCYTES % (AUTO) 8.5 % (2.0-12.0); NEUTROPHILS # (AUTO) 3.4 K/uL (1.8-8.9); NEUTROPHILS % (AUTO) 42.3 % (43.0-81.0); PLATELET COUNT (AUTO) 479 K/uL (150-450); RED BLOOD CELL COUNT(AUTO) 4.44 MIL/uL (4.5-6.0); RED CELL DISTRIBUTION WIDTH 23.1 % (11.5-15.0); WHITE BLOOD COUNT (AUTO) 8.1 K/uL (4.3-11.0)
[2024-05-25 03:37] LABS: CALCIUM, SERUM 9.6 mg/dL (8.5-10.1); CARBON DIOXIDE 25 mmol/L (21-32); CHLORIDE 103 mmol/L (98-107); CREATININE 1.4 mg/dL (0.6-1.3); GLUCOSE 126 mg/dL (74-106); POTASSIUM 3.9 mmol/L (3.5-5.1); SODIUM SERUM 140 mmol/L (136-145); UREA NITROGEN, BLOOD 22 mg/dL (7-18)
[2024-05-25 03:49] LABS: ALANINE AMINOTRANSFERASE 14 U/L (12-78); ALBUMIN 4.2 g/dL (3.4-5.0); ALKALINE PHOSPHATASE 78 U/L (46-116); ASPARTATE AMINOTRANSFERASE 5 U/L (15-37); BILIRUBIN,DIRECT 0.1 mg/dL (0.0-0.2); BILIRUBIN,TOTAL 0.4 mg/dL (0.2-1.0); NT-PRO BNP 243 pg/mL (0-125); TOTAL PROTEIN, SERUM 7.5 g/dL (6.4-8.2)
[2024-05-25 05:28] LABS: APPEARANCE,URINE CLEAR (CLEAR); BILIRUBIN,URINE NEGATIVE (NEGATIVE); BLOOD, URINE NEGATIVE Ery/uL (NEGATIVE); COLOR,URINE YELLOW (YELLOW); KETONES,URINE NEGATIVE (NEGATIVE); LEUKOCYTE ESTERASE ,URINE NEGATIVE (NEGATIVE); NITRITE, URINE NEGATIVE (NEGATIVE); PROTEIN,URINE NEGATIVE (NEGATIVE); UGLUCOSE NEGATIVE (NEGATIVE); UROBILINOGEN,URINE 0.2 EU/dL (0.2)
[2024-05-25] MEDS ORDERED: MAG HYDROX/AL HYDROX/SIMETH 30 ML UDC PO PRN (06:00)
[2024-05-25] MEDS ORDERED: MAGNESIUM HYDROXIDE 30 ML UDC PO PRN (06:00)
[2024-05-25] MEDS ORDERED: Z GUARD REMEDY 4 OZ OINT TP PRN (06:00)
[2024-05-25] MEDS ORDERED: ONDANSETRON HCL/PF 4 MG/2 ML VIAL IVP PRN (06:00)
[2024-05-25] MEDS ORDERED: ADENOSINE 6 MG/2 ML VIAL ONE (07:28)
[2024-05-25] MEDS: ADENOSINE 6 MG/2 ML VIAL IVP ONE (07:30)
[2024-05-25] MEDS ORDERED: DILTIAZEM HCL 25 MG IV ONE (07:45)
[2024-05-25] MEDS: DILTIAZEM HCL 50 MG IV IV ONE (07:48)
[2024-05-25] MEDS ORDERED: CLOPIDOGREL BISULFATE 75 MG TABLET ONE (09:12)
[2024-05-25] MEDS ORDERED: PANTOPRAZOLE 40 MG VIAL ONE (09:12)
[2024-05-25 09:35] VITALS: BP 163/62; TEMP 97.9; O2SAT 99
[2024-05-25] MEDS: CLOPIDOGREL BISULFATE 75 MG TABLET PO SCH (10:30)
[2024-05-25] MEDS: ISOSORBIDE DINITRATE (20MG) 20 MG TABLET PO SCH (10:30)
[2024-05-25] MEDS: PANTOPRAZOLE 40 MG VIAL IV SCH (10:30)
[2024-05-25] MEDS: VALSARTAN 80 MG TABLET PO SCH (10:31)
[2024-05-25] MEDS: ASPIRIN 81 MG TAB.CHEW PO SCH (10:31)
[2024-05-25] MEDS ORDERED: DOCU100T2 PO (11:00)
[2024-05-25] MEDS ORDERED: SIMV-46 PO (11:00)
[2024-05-25] MEDS ORDERED: BENA40TA8 PO (11:00)
[2024-05-25] MEDS ORDERED: AMLO10TA4 PO (11:00)
[2024-05-25 12:00] VITALS: BP 133/63; TEMP 98; O2SAT 99
[2024-05-25] MEDS: METOPROLOL TARTRATE 50 MG TABLET PO SCH (12:52)
[2024-05-25] MEDS: ACETAMINOPHEN 325 MG TABLET PO PRN (15:04)
[2024-05-25 16:40] VITALS: BP 121/60; TEMP 98.8; O2SAT 97
[2024-05-25 20:00] VITALS: BP 124/62; TEMP 97.9; O2SAT 99
[2024-05-25] MEDS ORDERED: SIMVASTATIN 20 MG TABLET PO SCH (22:00)
[2024-05-26] VITALS: BP 143/70; TEMP 97.7; O2SAT 95
[2024-05-26 04:00] VITALS: BP 141/55; TEMP 97.5; O2SAT 97
[2024-05-26 06:09] LABS: BASOPHILS % (AUTO) 0.5 % (0.0-2.0); EOSINOPHILS # (AUTO) 0.4 K/uL (0.0-0.7); EOSINOPHILS % (AUTO) 5.4 % (0.0-6.0); HEMATOCRIT 29 % (39-51); HEMOGLOBIN 8.9 g/dL (13.5-17.5); LYMPHOCYTES # (AUTO) 2.1 K/uL (0.8-4.8); LYMPHOCYTES % (AUTO) 27.6 % (20.0-44.0); MEAN CORPUSCULAR HEMOGLOBIN 21 PG (26.0-33.0); MEAN CORPUSCULAR HGB CONC 31 g/dl (31.0-36.0); MEAN CORPUSCULAR VOLUME 69 fL (80-96); MONOCYTES # (AUTO) 0.8 K/uL (0.1-1.30); MONOCYTES % (AUTO) 10.2 % (2.0-12.0); NEUTROPHILS # (AUTO) 4.3 K/uL (1.8-8.9); NEUTROPHILS % (AUTO) 56.3 % (43.0-81.0); PLATELET COUNT (AUTO) 440 K/uL (150-450); RED BLOOD CELL COUNT(AUTO) 4.21 MIL/uL (4.5-6.0); WHITE BLOOD COUNT (AUTO) 7.6 K/uL (4.3-11.0)
[2024-05-26 06:47] LABS: ALANINE AMINOTRANSFERASE 19 U/L (12-78); ALBUMIN 3.7 g/dL (3.4-5.0); ALKALINE PHOSPHATASE 55 U/L (46-116); ASPARTATE AMINOTRANSFERASE 12 U/L (15-37); BILIRUBIN,TOTAL 0.6 mg/dL (0.2-1.0); CALCIUM, SERUM 8.9 mg/dL (8.5-10.1); CARBON DIOXIDE 23 mmol/L (21-32); CHLORIDE 104 mmol/L (98-107); CREATININE 1.3 mg/dL (0.6-1.3); GLUCOSE 119 mg/dL (74-106); MAGNESIUM 2.3 mg/dL (1.8-2.4); PHOSPHORUS 2.9 mg/dL (2.5-4.9); POTASSIUM 3.9 mmol/L (3.5-5.1); SODIUM SERUM 138 mmol/L (136-145); TOTAL PROTEIN, SERUM 6.9 g/dL (6.4-8.2); UREA NITROGEN, BLOOD 18 mg/dL (7-18)
[2024-05-26 11:49] VITALS: BP 154/59
[2024-05-27] MEDS ORDERED: PANTOPRAZOLE 40 MG TABLET.DR PO SCH (09:00)
== END 2024-05-26 11:55 | disposition home or self-care (01) | DRG 204 ==
LOC: ER 03:04 → TELE 07:16 → TELE1 09:18
PROVIDERS: ADMIT Internal Medicine; ATTEND Internal Medicine
DX: R55 Syncope and collapse (principal); N17.0 Acute kidney failure with tubular necrosis; I11.9 Hypertensive heart disease without heart failure; I47.10 Supraventricular tachycardia, unspecified; I25.2 Old myocardial infarction; I65.22 Occlusion and stenosis of left carotid artery; E78.5 Hyperlipidemia, unspecified; I25.10 Atherosclerotic heart disease of native coronary artery without angina pectoris; R73.03 Prediabetes; Z86.73 Personal history of transient ischemic attack (TIA), and cerebral infarction without residual deficits; Z95.820 Peripheral vascular angioplasty status with implants and grafts; Z88.0 Allergy status to penicillin; Z90.49 Acquired absence of other specified parts of digestive tract; Z79.02 Long term (current) use of antithrombotics/antiplatelets; Z79.82 Long term (current) use of aspirin; Z79.899 Other long term (current) drug therapy; Z91.013 Allergy to seafood; Z86.79 Personal history of other diseases of the circulatory system
CPT/HCPCS: 36415; 71045-TC; 76770-TC; 80048-TC; 80053-TC; 80076-TC; 83735-TC; 83880; 84100-TC; 84484-TC; 85025-TC; 93307-TC; 93880-TC; 97116-TC; 97530-TC; A4223; G0378; J0153; J2470; J3490

== ENCOUNTER 2025-03-10 07:04 | Inpatient (IN) | payer MEDICARE ==
[~2025-03-10] VITALS: Ht 175.3 cm; Wt 82.1 kg
[~2025-03-10 07:04] MED LIST changes: +AMLO10TA4 PO; +BENA40TA8 PO; -CLOP75TA15 PO; +DOCU100T2 PO; -VALS80TA31 PO
[2025-03-10] MEDS ORDERED: IOHEXOL-350 100 ML VIAL IV ONE (07:12)
[2025-03-10] MEDS ORDERED: IV NS 0.9% 250 ML IV ONE (07:12)
[2025-03-10] MEDS ORDERED: CT SWABBABLE VALVE TRANS SET 1 EA INFUS.SET MC ONE (07:12)
[2025-03-10 07:17] LABS: HEMOGLOBIN 15.1 g/dL (13.5-17.5); WHITE BLOOD COUNT (AUTO) 8.3 K/uL (4.3-11.0)
[2025-03-10 07:20] LABS: BASOPHILS # (AUTO) 0.3 K/uL (0.0-0.2); BASOPHILS % (AUTO) 3.1 % (0.0-2.0); EOSINOPHILS # (AUTO) 0.3 K/uL (0.0-0.7); EOSINOPHILS % (AUTO) 3.8 % (0.0-6.0); HEMATOCRIT 44 % (39-51); LYMPHOCYTES # (AUTO) 3.6 K/uL (0.8-4.8); LYMPHOCYTES % (AUTO) 43.3 % (20.0-44.0); MEAN CORPUSCULAR HEMOGLOBIN 30 PG (26.0-33.0); MEAN CORPUSCULAR HGB CONC 34 g/dl (31.0-36.0); MEAN CORPUSCULAR VOLUME 87 fL (80-96); MONOCYTES # (AUTO) 0.7 K/uL (0.1-1.30); MONOCYTES % (AUTO) 7.9 % (2.0-12.0); NEUTROPHILS # (AUTO) 3.5 K/uL (1.8-8.9); NEUTROPHILS % (AUTO) 41.9 % (43.0-81.0); PLATELET COUNT (AUTO) 215 K/uL (150-450); RED BLOOD CELL COUNT(AUTO) 5.09 MIL/uL (4.5-6.0); RED CELL DISTRIBUTION WIDTH 15.7 % (11.5-15.0)
[2025-03-10 07:23] LABS: CALCIUM, SERUM 8.7 mg/dL (8.5-10.1); CARBON DIOXIDE 26 mmol/L (21-32); CHLORIDE 104 mmol/L (98-107); CREATININE 1.2 mg/dL (0.6-1.3); GLUCOSE 130 mg/dL (74-106); POTASSIUM 3.6 mmol/L (3.5-5.1); SODIUM SERUM 136 mmol/L (136-145); UREA NITROGEN, BLOOD 15 mg/dL (7-18)
[2025-03-10 07:29] LABS: INR 0.97 (0.91-1.10); PARTIAL THROMBOPLASTIN TIME 26.4 SEC (24.3-34.3); PROTHROMBIN TIME 10.3 SECS (9.2-11.1)
[2025-03-10 08:08] LABS: APPEARANCE,URINE CLEAR (CLEAR); BILIRUBIN,URINE Negative (NEGATIVE); BLOOD, URINE Trace-intact Ery/uL (NEGATIVE); COLOR,URINE YELLOW (YELLOW); KETONES,URINE Negative (NEGATIVE); LEUKOCYTE ESTERASE ,URINE Negative (NEGATIVE); PROTEIN,URINE Negative (NEGATIVE); UGLUCOSE Negative (NEGATIVE); UROBILINOGEN,URINE 0.2 EU/dL (0.2)
[2025-03-10 08:27] LABS: NITRITE, URINE NEGATIVE (NEGATIVE)
[2025-03-10 08:28] LABS: ADD URINE CULTURE NO; BACTERIA,URINE Few /HPF (None Seen); SQUAMOUS EPITHELIAL CELL,UR Few /HPF (None Seen); WBC,URINE 0-2 /HPF (0-3)
[2025-03-10] MEDS ORDERED: CLOPIDOGREL BISULFATE 75 MG TABLET ONE (08:32)
[2025-03-10] MEDS: CLOPIDOGREL BISULFATE 300 MG TABLET PO ONE (08:45)
[2025-03-10] MEDS: ASPIRIN EC 81 MG TABLET.DR PO ONE (08:46)
[2025-03-10] MEDS ORDERED: Z GUARD REMEDY 4 OZ OINT TP PRN (11:00)
[2025-03-10] MEDS ORDERED: ONDANSETRON HCL/PF 4 MG/2 ML VIAL IVP PRN (11:00)
[2025-03-10] MEDS ORDERED: MAGNESIUM HYDROXIDE 30 ML UDC PO PRN (11:00)
[2025-03-10] MEDS ORDERED: MAG HYDROX/AL HYDROX/SIMETH 30 ML UDC PO PRN (11:00)
[2025-03-10 16:00] VITALS: BP 156/85; TEMP 98.1; O2SAT 97
[2025-03-10] MEDS: ACETAMINOPHEN 325 MG TABLET PO PRN (16:03)
[2025-03-10] MEDS ORDERED: hydrALAZINE HCL IV 20 MG VIAL IV PRN (17:00)
[2025-03-10 21:00] VITALS: BP 169/76; TEMP 97.9; O2SAT 96
[2025-03-10 21:06] VITALS: BP 169/76; TEMP 97.9; O2SAT 96
[2025-03-10] MEDS: SIMVASTATIN 20 MG TABLET PO SCH (21:31)
[2025-03-10] MEDS ORDERED: ATORVASTATIN 40 MG TABLET PO SCH (22:00)
[2025-03-11] VITALS: BP_SYST 209; BP_SYST 217; BP_DIAS 76; BP_DIAS 80; TEMP 98.2; TEMP 98.6; O2SAT 96; O2SAT 99
[2025-03-11 04:00] VITALS: BP 209/76; TEMP 98.2; O2SAT 96
[2025-03-11 04:23] VITALS: BP 209/76; TEMP 98.2; O2SAT 96
[2025-03-11 06:51] LABS: CALCIUM, SERUM 8.3 mg/dL (8.5-10.1); CREATININE 1.1 mg/dL (0.6-1.3); MAGNESIUM 2.7 mg/dL (1.8-2.4); PHOSPHORUS 2.6 mg/dL (2.5-4.9); POTASSIUM 3.7 mmol/L (3.5-5.1)
[2025-03-11 06:52] LABS: BASOPHILS % (AUTO) 0.5 % (0.0-2.0); EOSINOPHILS # (AUTO) 0.3 K/uL (0.0-0.7); EOSINOPHILS % (AUTO) 3.1 % (0.0-6.0); HEMATOCRIT 52 % (39-51); HEMOGLOBIN 17.4 g/dL (13.5-17.5); LYMPHOCYTES # (AUTO) 2.5 K/uL (0.8-4.8); LYMPHOCYTES % (AUTO) 28.9 % (20.0-44.0); MEAN CORPUSCULAR HEMOGLOBIN 30 PG (26.0-33.0); MEAN CORPUSCULAR HGB CONC 34 g/dl (31.0-36.0); MEAN CORPUSCULAR VOLUME 88 fL (80-96); MONOCYTES # (AUTO) 0.6 K/uL (0.1-1.30); MONOCYTES % (AUTO) 7.4 % (2.0-12.0); NEUTROPHILS # (AUTO) 5.2 K/uL (1.8-8.9); NEUTROPHILS % (AUTO) 60.1 % (43.0-81.0); PLATELET COUNT (AUTO) 248 K/uL (150-450); RED BLOOD CELL COUNT(AUTO) 5.88 MIL/uL (4.5-6.0); WHITE BLOOD COUNT (AUTO) 8.6 K/uL (4.3-11.0)
[2025-03-11 08:00] VITALS: BP 182/93; TEMP 97.5; O2SAT 97
[2025-03-11] MEDS: PANTOPRAZOLE 40 MG TABLET.DR PO SCH (09:01)
[2025-03-11] MEDS: DOCUSATE SODIUM 100 MG CAPSULE PO SCH (09:01)
[2025-03-11] MEDS: ASPIRIN 81 MG TAB.CHEW PO SCH (09:01)
[2025-03-11] MEDS: AMLODIPINE BESYLATE 10 MG TABLET PO SCH (12:17)
[2025-03-11 16:00] VITALS: BP 150/85; TEMP 97.7; O2SAT 98
[2025-03-11 20:00] VITALS: BP 138/73; TEMP 98.6; O2SAT 98
[2025-03-11] MEDS: ISOSORBIDE DINITRATE (20MG) 20 MG TABLET PO SCH (21:19)
[2025-03-12] VITALS: BP 163/81; TEMP 98.1; O2SAT 97
[2025-03-12 04:00] VITALS: BP 143/85; TEMP 98.1; O2SAT 97
[2025-03-12 08:00] VITALS: BP 131/80; TEMP 97.7; O2SAT 96
[2025-03-12 08:47] VITALS: BP 131/80
[2025-03-12] MEDS ORDERED: SIMV-49 PO (10:42)
== END 2025-03-12 11:30 | disposition home or self-care (01) | DRG 69 ==
LOC: ER 07:05 → TELE 13:45
PROVIDERS: ADMIT Nurse Practitioner Acute Care; ATTEND Nurse Practitioner Acute Care
DX: G45.9 Transient cerebral ischemic attack, unspecified (principal); R47.1 Dysarthria and anarthria; E78.5 Hyperlipidemia, unspecified; I16.0 Hypertensive urgency; I10 Essential (primary) hypertension; M17.12 Unilateral primary osteoarthritis, left knee; R73.03 Prediabetes; I67.1 Cerebral aneurysm, nonruptured; I25.10 Atherosclerotic heart disease of native coronary artery without angina pectoris; Z79.82 Long term (current) use of aspirin; Z79.899 Other long term (current) drug therapy; Z91.013 Allergy to seafood; Z88.0 Allergy status to penicillin; Z95.820 Peripheral vascular angioplasty status with implants and grafts; Z86.73 Personal history of transient ischemic attack (TIA), and cerebral infarction without residual deficits; Z94.7 Corneal transplant status; Z90.49 Acquired absence of other specified parts of digestive tract
CPT/HCPCS: 36415; 70450-TC; 70496-TC; 70498-TC; 71045-TC; 80048-TC; 80061-TC; 81001; 83735-TC; 84100-TC; 84484-TC; 85025-TC; 85730-TC; 92526; 92611-TC; 97110-TC; 97116-TC; 97530-TC; G0378; J7050; Q9967

== ENCOUNTER 2025-06-17 18:10 | Emergency (ER) | payer MEDICARE ==
[~2025-06-17] VITALS: Ht 175.3 cm; Wt 78.9 kg
[~2025-06-17 18:10] MED LIST changes: -SIMV-46 PO; +SIMV-49 PO
[2025-06-17] MEDS ORDERED: BENAZEPRIL HCL 10 MG TABLET ONE (19:16)
[2025-06-17] MEDS ORDERED: AMLODIPINE BESYLATE 10 MG TABLET ONE (19:17)
[2025-06-17] MEDS: AMLODIPINE BESYLATE 5 MG TABLET PO ONE (19:23)
[2025-06-17] MEDS: BENAZEPRIL HCL 10 MG TABLET PO ONE (19:23)
[2025-06-17] MEDS ORDERED: BENA40TA8 PO (19:43)
[2025-06-17] MEDS ORDERED: AMLO-213 PO (19:43)
[2025-06-17 21:12] VITALS: BP 196/87; TEMP 98; O2SAT 95
== END 2025-06-17 21:14 | disposition home or self-care (01) ==
LOC: ER 18:15
DX: I11.9 Hypertensive heart disease without heart failure (principal); E11.9 Type 2 diabetes mellitus without complications; E78.5 Hyperlipidemia, unspecified; Z79.82 Long term (current) use of aspirin; Z86.73 Personal history of transient ischemic attack (TIA), and cerebral infarction without residual deficits; Z88.0 Allergy status to penicillin; Z79.899 Other long term (current) drug therapy